=== PATIENT | male | born 1965 | race Caucasian/White ===

== ENCOUNTER 2017-06-27 09:49 | Inpatient (IN) | payer OTHER, SELFPAY ==
[2017-06-27] MEDS ORDERED: Nitroglycerin 2% Ointment 1 INCH/1 GM Packet ONE (10:23)
[2017-06-27] MEDS ORDERED: Azithromycin 500 MG, Admixture Fee 1 EACH in Sodium Chloride 0.9% 250 ML 250 ML IVPB SCH (10:30)
--- NOTE | 2017-06-27 10:33 | RAD ---
CHEST ONE VIEW: History: Dyspnea. Comparison: 11-09-16 FINDINGS: Portable chest demonstrates an enlarged cardiac silhouette. Sternotomy wires are present. Pulmonary v essels and hilum are normal. Costophrenic angles are clear. No masses or consolidation. No pneumothor ax or osseous abnormalities. IMPRESSION: Cardiomegaly. No acute cardiopulmonary process. POS: [facility]
[2017-06-27 10:35] LABS: #Eosinphils 0.2 thou/uL (0.0-0.7); #Lymphocytes 1.5 thou/uL (1.20-3.40); #Monocytes 0.5 thou/uL (0.11-0.59); #Neutrophils 4.7 thou/uL (1.40-6.50); %Basophils 0.6 % (0.0-1.0); %Eosinophils 2.9 % (0.0-10.0); %Lymphocytes 21.2 % (21.0-51.0); %Monocytes 7.2 % (0.0-10.0); %Neutrophils 68.1 % (42.0-75.0); Hemoglobin 13.3 g/dL (14.0-18.0); Mean Corpuscular HGB CONC 32.2 g/dL (32.0-36.0); Mean Corpuscular Hemoglobin 28.6 pg (27.0-31.0); Mean Corpuscular Volume 88.8 fl (80.0-94.0); Mean Platelet Volume 9.5 fL (7.4-10.4); Platelet Count 179 thou/uL (130-400); Red Blood Cell (RBC) Count 4.64 mill/uL (4.70-6.10)
[2017-06-27 10:53] LABS: ALT (SGPT) 20 U/L (8-55); AST (SGOT) 20 U/L (5-34); Albumin 4.2 g/dL (3.5-5.0); Alkaline Phosphatase 110 U/L (40-150); Anion Gap 10 mmol/L (10-20); BUN (Urea Nitrogen) 25 mg/dL (8.4-25.7); Bilirubin, Total 0.9 mg/dL (0.2-1.2); CK (CPK) 90 U/L (30-200); Calc. Creatinine Clearance 0 mL/min (70-130); Calcium 9.6 mg/dL (7.8-10.44); Carbon Dioxide 29 mmol/L (22-29); Chloride 103 mmol/L (98-107); Estimated GFR-MDRD 47; Globulin 3.4 g/dL (2.4-3.5); Glucose 119 mg/dL (70-105); Potassium 4.1 mmol/L (3.5-5.1); Protein, Total 7.6 g/dL (6.0-8.3); Sodium 138 mmol/L (136-145)
[2017-06-27 10:57] LABS: CKMB 3.9 ng/mL (0-6.6); Troponin I 0.287 ng/mL (< 0.028)
[2017-06-27] MEDS ORDERED: Enoxaparin Sodium 100 MG/ML SYRINGE ONE (12:05)
[2017-06-27] MEDS ORDERED: hydrALAZINE 20 MG/ML VIAL SLOW IVP PRN (13:21)
[2017-06-27] MEDS ORDERED: Benzonatate 100 MG CAP PO PRN (13:21)
[2017-06-27] MEDS ORDERED: Senokot 8.6 MG TAB PO PRN (13:21)
[2017-06-27] MEDS ORDERED: Lorazepam 1 MG TAB PO PRN (13:21)
[2017-06-27] MEDS ORDERED: Acetaminophen 325 MG TAB PO PRN (13:21)
[2017-06-27] MEDS ORDERED: Ondansetron HCl/PF 4 MG/2 ML Vial IVP PRN (13:21)
[2017-06-27] MEDS ORDERED: Loratadine 10 MG TAB PO PRN (13:21)
[2017-06-27] MEDS ORDERED: traMADol HCl 50 MG TAB PO PRN (13:21)
[2017-06-27] MEDS ORDERED: Milk Of Magnesia 30 ML UDCUP PO PRN (13:21)
[2017-06-27] MEDS ORDERED: Calcium Carbonate 500 MG ChewTAB PO PRN (13:21)
[2017-06-27] MEDS ORDERED: Bisacodyl 5 MG TAB PO PRN (13:21)
[2017-06-27] MEDS ORDERED: Mag-Al 1200 mg/1200 mg/30 ML UDCUP PO PRN (13:21)
[2017-06-27] MEDS ORDERED: cloNIDine 0.1 MG TAB PO PRN (13:21)
[2017-06-27] MEDS ORDERED: Diabetic Tussin 200 MG/10 ML UDCUP PO PRN (13:21)
[2017-06-27] MEDS ORDERED: predniSONE 20 MG TAB PO SCH (13:21)
[2017-06-27 13:53] LABS: Troponin I 0.266 ng/mL (< 0.028)
[2017-06-27] MEDS ORDERED: Furosemide 40 MG/4 ML VIAL SLOW IVP SCH (14:00)
--- NOTE | 2017-06-27 15:11 | HP ---
DATE OF ADMISSION: 06/27/2017 PRIMARY CARE PHYSICIAN: None. The patient has not been able to follow up with any physician. CHIEF COMPLAINT: Worsening shortness of breath and increased swelling in legs and arms. HISTORY OF PRESENT ILLNESS: Mr. Garcia is a very pleasant 51-year-old male with past medic al history of some chronic systolic congestive heart failure as well as ischemic cardiomyopathy with EF last estimated at 20%, coronary artery disease, and dyslipidemia, who presented to the emergency r oom with the above-mentioned complaints. History is mainly obtained by the patient himself and [facility] medical records have been reviewed. He was last admitted to our facility in 10/2016 and was di agnosed with new onset congestive heart failure due to ischemic cardiomyopathy. At that time, his ec ho showed suppressed EF of 15-20%, but unfortunately due to unfunded status, they were not able to af mishra the LifeVest. He also has known history of coronary artery disease with history of CABG in the past. Mr. Garcia presented today for complaints of worsening shortness of breath and he has noticed increas ed swelling in his arms and legs. He reports that he has known history of kidney stones and recently he had renal colic and has possibly passed a renal stone. Because of the pain, he was drinking more and more fluids in order for easy passage of the urine. He did pass the stone, but started to notic e that his legs and arms are getting more and more swollen and he has progressive worsening of shortn ess of breath. He also noticed greenish phlegm and discharge from his nose with symptoms consistent with some allergies. He has no fever, no cough otherwise. He denies any sick contacts. He reported that he is now on disability and had an outpatient echo done late last year with still showed EF heather und 20%. This was done at [facility]. He reports compliance to his medications, but reports that he is taking very low dose of Lasix and he might have been taken off rest of his bl ood pressure medications because his blood pressure had been running low. Currently, he does not rem ember what he takes. Upon presentation to the emergency room, his blood pressure was 120/94 with a pulse of 101, saturatin g 98% on room air. His workup was consistent with acute fluid overload with chest x-ray consistent w ith same. He had borderline elevated cardiac enzymes with troponin at 0.287. His BNP is elevated to 754. He received Lasix for diuresis in the Emergency Room along with IV antibiotics namely Rocephin and azithromycin as well as one dose of therapeutic Lovenox at 1 mg/kg dosing for non-ST elevation M I. He is now being admitted to floor for acute respiratory distress secondary to acute on chronic sy stolic congestive heart failure and possible COPD exacerbation as evidenced by his physical examinati on to the emergency room physician. The patient has known history of tobacco abuse. PAST MEDICAL HISTORY: 1. Coronary artery disease, status post CABG x2 on 09/21/2016. 2. Chronic systolic congestive heart failure. 3. Chronic kidney disease stage 2. 4. Obesity. 5. Hypertension. 6. History of former tobacco abuse. 7. Dyslipidemia. 8. Ischemic cardiomyopathy. PAST SURGICAL HISTORY: 1. CABG. 2. Appendectomy. 3. Knee surgery. 4. Cardiac catheterization in July 2016. ALLERGIES: No known medication allergies. SOCIAL HISTORY: He is and lives with his . He has quit smoking a few years ago. No his tory of drug or alcohol abuse. FAMILY HISTORY: Colon cancer in his brother, otherwise no significant premature coronary artery dise ase or stroke. REVIEW OF SYSTEMS: The following complete review of systems was negative, unless otherwise mentioned in the HPI or below: Constitutional: Weight loss or gain, ability to conduct usual activities. Sk in: Rash, itching. Eyes: Double vision, pain. ENT/Mouth: Nose bleeding, neck stiffness, pain, te nderness. Cardiovascular: Palpitations, dyspnea on exertion, orthopnea. Respiratory: Shortness of breath, wheezing, cough, hemoptysis, fever or night sweats. Gastrointestinal: Poor appetite, abdom inal pain, heartburn, nausea, vomiting, constipation, or diarrhea. Genitourinary: Urgency, frequenc y, dysuria, nocturia. Musculoskeletal: Pain, swelling. Neurologic/Psychiatric: Anxiety, depressio n. Allergy/Immunologic: Skin rash, bleeding tendency. HOME MEDICATIONS: Unknown. The patient does take a full dose aspirin and low dose Lasix, but he can not recall the rest of his home medications. LABORATORY DATA: CBC is unremarkable. Serum chemistries show creatinine of 1.57 with estimated GFR of 47. His baseline creatinine is anywhere from 1.2 to 1.5. Initial troponin is 0.287. Repeat trop onin 0.266 with a BNP of 754. Lactic acid is normal. Chest x-ray by my review has no evidence to hale ggest any infiltrate. He does have evidence of pulmonary vascular congestion and cardiomegaly. A 12-lead EKG by my review shows normal sinus rhythm at 99 beats per minute with frequent PVCs and le ft atrial enlargement, otherwise no acute ST or T-wave changes. PHYSICAL EXAMINATION: VITAL SIGNS: Upon presentation; blood pressure 120/94, pulse of 101, respirations 20, saturating 98% on room air, temperature 98.0. GENERAL: No acute distress. Awake, alert, oriented x3. Appears quite comfortable. HEENT: Mucous membrane is moist and pink. No oropharyngeal exudate or erythema. Head is normocepha lic and atraumatic. Pupils are equal and reactive to light and accommodation. Extraocular movements are intact. NECK: Supple without any lymphadenopathy, JVD, or bruit. CHEST: Clear to auscultation without any wheezing, rales, or rhonchi. Rate and rhythm is regular wi thout any murmur, rubs, or gallops. ABDOMEN: Obese, soft, nontender, and nondistended. No hepatosplenomegaly. No guarding, rebound, or rigidity. EXTREMITIES: Show bilateral pitting edema extending from his toes to his upper goldne. He also has bi lateral upper extremity edema on presentation which has since improved with Lasix. NEUROLOGIC: Nonfocal. SKIN: Free of any rashes or bruises. Feels warm and dry to touch. PSYCHIATRIC: Normal affect. IMPRESSION AND PLAN: 1. Acute systolic congestive heart failure exacerbation. It is imperative to know what his cardiac functioning status is. We will go ahead and obtain another echocardiogram and continue him on high d ose diuresis with strict I's and O's and heart failure clinic referral. The patient is currently on disability. I have discussed the possibility of LifeVest again with him in case his EF further suppr essed. At this time, he is more amenable to the discussion. Meanwhile, we will add daily dose of as pirin, continue his statin, and add low dose beta marilynn and CLEMENTE inhibitor if his blood pressure all ows. He will also be a candidate for Aldactone based on his past echocardiogram. However, given his marginal blood pressure, these medications will be restarted slowly. We will consult his cardiologi , Dr. Peñaloza for further recommendations. Monitor blood pressure closely. 2. Acute chronic obstructive pulmonary disease exacerbation. This is based on the clinical examinat ion as per the emergency room physician. His wheezing has improved. At this time, we will put him o n nebulizers and oral steroids and oxygen as needed basis. I do not suspect any pneumonia at this ti me, but he can very well have acute bronchitis or viral upper respiratory infection. His influenza q uick swab is negative, but we will go ahead and perform the PCR for respiratory viruses. At this palalvi e, hold antibiotics until further clinical confirmation of infection is made. 3. History of coronary artery disease. We will restart his home medications of CLEMENTE inhibitor, beta blockers, aspirin, and statin as much as his blood pressure tolerates. 4. Dyslipidemia. Resume his pravastatin. 5. History of nephrolithiasis, currently asymptomatic. 6. Chronic kidney disease stage 2. We will monitor his renal function closely with diuresis and reji id any further nephrotoxic medications. 7. Morbid obesity. 8. Hypertension. Monitor symptoms closely as the blood pressure is on the lower side at this time. 9. Code status: FULL CODE. 10. Deep venous thrombosis and gastrointestinal prophylaxis. DISPOSITION: Mr. Garcia is currently being admitted to telemetry unit for acute CHF exacerbation and also possibly acute COPD exacerbation. Estimated length of stay at this time is at least 2 to 3 midnights. Further management will depend u radu his clinical course, his echocardiogram, and Cardiology recommendations.
[2017-06-27 16:01] VITALS: BMI 35.9
[2017-06-27] MEDS: Heparin 5,000 UNITS/ML VIAL SC SCH ×2 (16:03→21:43)
[2017-06-27] MEDS ORDERED: FLU VACC QS2017-18 36 mo. & older 0.5 ML SYRINGE IM ONE (17:00)
[2017-06-27 17:36] LABS: Troponin I 0.253 ng/mL (< 0.028)
[2017-06-27] MEDS ORDERED: Lisinopril 5 MG TAB PO SCH (18:45)
[2017-06-27] MEDS ORDERED: Sodium Chloride 0.9% 10 ML ONE (20:24)
[2017-06-27] MEDS ORDERED: Carvedilol 3.125 MG TAB PO SCH (21:00)
[2017-06-27] MEDS: Famotidine 20 MG TAB PO SCH (21:43)
--- NOTE | 2017-06-27 22:51 | CON ---
DATE OF CONSULTATION: 06/27/2017. REASON FOR ADMISSION: Congestive heart failure. PRIMARY FOREIGN CLERK: Johnnie Peñaloza MD HISTORY OF PRESENT ILLNESS: Mr. Garcia is a pleasant 51-year-old gentleman. The patient has a histo ry of coronary artery bypass grafting, 07/2016. At that time, the patient underwent cardiac catheter ization and was found to have multivessel coronary disease with reduced left ventricular function. T he patient underwent bypass surgery. He had an 80% LAD lesion, 70% first marginal lesion, 90% second marginal lesion in the right coronary, 80% posterior descending artery. He also had depressed left ventricular function. He underwent successful bypass surgery with Dr. Charlie Burden, 09/21/2016, int ernal mammary to the LAD and vein graft to right coronary and ramus. The patient had depressed left ventricular function following that. Discussion was held about LifeVe st, but he could not afford to buy it or use it. He said he was on some medicines for heart failure, but stopped taking these due to the blood pressure being low. He has not been back to see Dr. Igor tomlinson for many months. The patient did not come back in for followup in the last few months. He said he could not afford it, but now he is on disability and he thinks he is able to afford it. He came to the hospital at this time with shortness of breath and increasing edema. He received some diuretics with an excellent response. He feels much better now. ALLERGIES: None known. MEDICATIONS: 1. Aspirin. 2. Pravastatin. 3. Furosemide. ALLERGIES: None. SOCIAL HISTORY: No alcohol or tobacco. FAMILY HISTORY: Negative for heart disease at a young age. PHYSICAL EXAMINATION: GENERAL: This is a pleasant 51-year-old gentleman. He says he is feeling much better. VITAL SIGNS: Blood pressure is high at 140/100, pulse 90. HEENT: Eyes, sclerae are nonicteric. Mouth, mucous membranes are moist. NECK: Supple. No lymphadenopathy. LUNGS: Clear. No wheezing, rales, or rhonchi. CARDIAC: Normal S1, normal S2. There is no murmur, rub, or gallop. ABDOMEN: Soft, nontender. EXTREMITIES: There is no edema. Good peripheral pulses. LABORATORY AND X-RAY FINDINGS: Troponin level peak is 0.266, which is just below the [place] range more a nd still in the indeterminate range. EKG did not show any acute changes, did show a PVC. ASSESSMENT AND PLAN: 1. History of congestive heart failure; acute on chronic systolic heart failure, improved now after diuretic therapy. Plan: Give intravenous Lasix, but we will reduce dose. He does not seem to be se verely volume overloaded. Resume CLEMENTE inhibitors. Resume beta blockers. 2. Coronary artery disease, status post bypass surgery, some distal atherosclerosis. 3. Hypercholesterolemia. Plan: We will also continue statin and aspirin, on low-dose heparin. Rep eat echocardiogram. Needs to be on CLEMENTE inhibitors and beta blockers for 3 months before consideratio n for an implantable defibrillator. Dr. Peñaloza to resume care tomorrow.
[2017-06-28 05:27] LABS: #Basophils 0.1 thou/uL (0.0-0.2); #Lymphocytes 0.7 thou/uL (1.20-3.40); #Monocytes 0.4 thou/uL (0.11-0.59); %Basophils 0.7 % (0.0-1.0); %Eosinophils 0.3 % (0.0-10.0); %Monocytes 5.2 % (0.0-10.0); %Neutrophils 83.8 % (42.0-75.0); Mean Corpuscular HGB CONC 31.5 g/dL (32.0-36.0); Mean Corpuscular Hemoglobin 28.1 pg (27.0-31.0); Mean Corpuscular Volume 89.2 fl (80.0-94.0); Mean Platelet Volume 9.8 fL (7.4-10.4); Platelet Count 173 thou/uL (130-400); RBC Distribution Width 14.2 % (11.5-14.5); Red Blood Cell (RBC) Count 4.63 mill/uL (4.70-6.10); White Blood Cell (WBC) Count 7.1 thou/uL (4.8-10.8)
[2017-06-28 05:41] LABS: Anion Gap 14 mmol/L (10-20); BUN (Urea Nitrogen) 25 mg/dL (8.4-25.7); Calc. Creatinine Clearance 98 mL/min (70-130); Calcium 9.8 mg/dL (7.8-10.44); Carbon Dioxide 25 mmol/L (22-29); Chloride 105 mmol/L (98-107); Estimated GFR-MDRD 48; Glucose 181 mg/dL (70-105); Potassium 4.3 mmol/L (3.5-5.1); Sodium 140 mmol/L (136-145)
[2017-06-28] MEDS ORDERED: Sodium Chloride 0.9% 10 ML ONE (05:45)
[2017-06-28] MEDS: Furosemide 40 MG/4 ML VIAL SLOW IVP SCH ×2 (05:58→14:45)
[2017-06-28] MEDS ORDERED: predniSONE 20 MG TAB PO SCH (08:00)
[2017-06-28] MEDS ORDERED: Carvedilol 3.125 MG TAB PO SCH (08:00)
[2017-06-28] MEDS ORDERED: Azithromycin 250 MG TAB PO SCH (09:00)
[2017-06-28] MEDS ORDERED: Lisinopril 5 MG TAB PO SCH (09:00)
[2017-06-28] MEDS: Famotidine 20 MG TAB PO SCH (09:55)
[2017-06-28] MEDS: Heparin 5,000 UNITS/ML VIAL SC SCH ×2 (09:56→15:38)
--- NOTE | 2017-06-28 12:39 | PDOC.CTH ---
Cardiology Progress Note - Subjective He is dong much better. His breathing is back to normal. He has diuresed about 6 L out. He has been battling with a kidney stone lately and thinks he passe dit a few days ago. - Objective Vital Signs Temp Pulse Resp BP BP Pulse Ox 06/28/17 09:55 97.2 F L 97 16 92 L 06/28/17 09:51 97.2 F L 97 16 134/82 92 L 06/28/17 05:57 99 20 133/94 H 06/28/17 04:00 96.7 F L 107 H 15 134/79 95 Weight 266 lb 12.8 oz 06/27/17 06/28/17 06/29/17 06:59 06:59 06:59 Intake Total 474 Output Total 1825 Balance -1351 - Physical Examination General/Neuro: alert & oriented x3, NAD Neck: no JVD present Lungs: CTA, unlabored respirations Heart: RRR Abdomen: NT/ND Extremities: other: (no edema.) - Telemetry Telemetry Rhythm: NSR - Labs Result Diagrams: 06/28/17 04:55 06/28/17 04:55 Troponin/CKMB CK-MB (CK-2) 3.9 ng/mL (0-6.6) 06/27/17 10:15 Troponin I 0.253 ng/mL (< 0.028) H 06/27/17 16:38 - Assessment/Plan 1. Acute on chronic systolic heart failure. 2. Severe ischemic CM EF at 20-25% 3. S/P CABG PLAN: - Agree with restarting all CHF meds. - Continue current dose of BB and ACEI. - If EF remains reduced in 3 months he will be a candidate for an AICD. - Much more euvolemic today. He may go home today. - Lasix to PO at 40 mg daily and as needed. - Follow up in the office in 3-4 weeks.
[2017-06-28 13:37] VITALS: TEMP 97.9
--- NOTE | 2017-06-28 14:12 | PDOC.PN ---
- Subjective Encounter Start Date: 06/28/17 Encounter Start Time: 14:10 Subjective: feels much better.back to baseline -: no chest pain/SOB/swelling - Objective MAR Reviewed: Yes Vital Signs & Weight: Vital Signs (12 hours) Temp Pulse Resp BP BP BP Pulse Ox 06/28/17 13:35 97.9 F 104 H 18 158/101 H 95 06/28/17 09:55 97.2 F L 97 16 92 L 06/28/17 09:51 97.2 F L 97 16 134/82 92 L 06/28/17 05:57 99 20 133/94 H 06/28/17 04:00 96.7 F L 107 H 15 134/79 95 Weight Weight 266 lb 12.8 oz I&O: 06/27/17 06/28/17 06/29/17 06:59 06:59 06:59 Intake Total 474 Output Total 1825 Balance -1351 Result Diagrams: 06/28/17 04:55 06/28/17 04:55 Additional Labs: Microbiology 06/27/17 17:09 Nasopharyngeal swab Respiratory Panel (PCR) - Final 06/27/17 10:14 Nasopharyngeal swab Influenza Types A,B Direct EIA - Final Laboratory Tests 09/22/16 11/09/16 11/10/16 04:00 16:14 04:00 Creatinine 1.10 1.35 H 1.31 H Troponin I B-Natriuretic Peptide 06/27/17 06/27/17 06/27/17 10:15 10:15 10:15 Creatinine 1.57 H Troponin I 0.287 H B-Natriuretic Peptide 754.0 H 06/27/17 06/27/17 06/28/17 13:14 16:38 04:55 Creatinine 1.53 H Troponin I 0.266 H 0.253 H B-Natriuretic Peptide 06/28/17 04:55 Creatinine Troponin I B-Natriuretic Peptide 739.6 H Radiology Reviewed by me: Yes (ECHO -EF 20-25%,global hypokinesis) Phys Exam - Physical Examination Constitutional: NAD HEENT: PERRLA, moist MMs, sclera anicteric, oral pharynx no lesions Neck: no nodes, no JVD, supple, full ROM Respiratory: no wheezing, no rales, no rhonchi, clear to auscultation bilateral Cardiovascular: RRR, no significant murmur Gastrointestinal: soft, non-tender, no distention, positive bowel sounds Musculoskeletal: no edema, pulses present Neurological: non-focal, normal sensation, moves all 4 limbs Psychiatric: normal affect, A&O x 3 Skin: no rash Dx/Plan (1) Acute on chronic systolic CHF (congestive heart failure) Code(s): I50.23 - ACUTE ON CHRONIC SYSTOLIC (CONGESTIVE) HEART FAILURE Status : Acute (2) CAD (coronary artery disease) Code(s): I25.10 - ATHSCL HEART DISEASE OF [place] CORONARY ARTERY W/O ANG PCTRS Status: Acute (3) CKD (chronic kidney disease), stage II Code(s): N18.2 - CHRONIC KIDNEY DISEASE, STAGE 2 (MILD) Status: Chronic (4) Former smoker Status: Chronic (5) HTN (hypertension) Code(s): I10 - ESSENTIAL (PRIMARY) HYPERTENSION Status: Chronic Qualifiers: (6) Obesity (BMI 30.0-34.9) Code(s): E66.9 - OBESITY, UNSPECIFIED Status: Chronic - Plan DVT proph w/SCDs adequate diuresis. cont ASA,statin.started CLEMENTE-I & BB.tolerated well -: OK to DC from cardiology perspective. -: will discuss life vest.pt candidate for same -: cont lasix .op f/u cardiology.? Aldactone but BP low for now -: AICD near future if EF remains low, * . Review of Systems - Review of Systems Constitutional: negative: fever, chills, sweats, weakness, malaise, other Respiratory: negative: Cough, Dry, Shortness of Breath, Hemoptysis, SOB with Excertion, Pleuritic Pain, Sputum, Wheezing Cardiovascular: negative: chest pain, palpitations, orthopnea, paroxysmal nocturnal dyspnea, edema, light headedness, other Gastrointestinal: negative: Nausea, Vomiting, Abdominal Pain, Diarrhea, Constipation, Melena, Hematochezia, Other Genitourinary: negative: Dysuria, Frequency, Incontinence, Hematuria, Retention , Other Musculoskeletal: negative: Neck Pain, Shoulder Pain, Arm Pain, Back Pain, Hand Pain, Leg Pain, Foot Pain, Other Neurological: negative: Weakness, Numbness, Incoordination, Change in Speech, Confusion, Seizures, Other - Medications/Allergies Allergies/Adverse Reactions: Allergies Allergy/AdvReac Type Severity Reaction Status Date / Time No Known Allergies Allergy Verified 06/27/17 13:33 Medications: Current Medications Acetaminophen (Tylenol) 650 mg PO Q4H PRN PRN Reason: Headache/Fever or Pain Al Hydroxide/Mg Hydroxide (Maalox) 30 ml PO Q6H PRN PRN Reason: Heartburn or Indigestion Albuterol/Ipratropium (Duoneb) 3 ml NEB [id number] [facility] Last Admin: 06/28/17 11:17 Dose: Not Given Azithromycin (Zithromax) 250 mg PO DAILY [facility] Stop: 07/01/17 09:01 Last Admin: 06/28/17 09:56 Dose: 250 mg Benzonatate (Tessalon) 100 mg PO Q4H PRN PRN Reason: Cough Bisacodyl (Dulcolax) 10 mg PO DAILYPRN PRN PRN Reason: Constipation Calcium Carbonate (Tums) 1,000 mg PO Q4H PRN PRN Reason: Heartburn or Indigestion Carvedilol (Coreg) 3.125 mg PO BID-[facility] Last Admin: 06/28/17 09:56 Dose: 3.125 mg Clonidine (Catapres) 0.1 mg PO Q4H PRN PRN Reason: Systolic BP > 160 Famotidine (Pepcid) 20 mg PO BID [facility] Last Admin: 06/28/17 09:55 Dose: 20 mg Furosemide (Lasix) 20 mg SLOW IVP 0600,1400 [facility] Last Admin: 06/28/17 05:58 Dose: 20 mg Guaifenesin (Robitussin Sf) 200 mg PO Q4H PRN PRN Reason: Cough Heparin Sodium (Porcine) (Heparin) 5,000 units SC TID [facility] Last Admin: 06/28/17 09:56 Dose: 5,000 units Hydralazine HCl (Apresoline) 10 mg SLOW IVP Q4H PRN PRN Reason: Systolic BP > 180 Lisinopril (Zestril) 5 mg PO DAILY [facility] Last Admin: 06/28/17 09:55 Dose: 5 mg Loratadine (Claritin) 10 mg PO DAILYPRN PRN PRN Reason: Sinus Symptoms Lorazepam (Ativan) 1 mg PO Q4H PRN PRN Reason: Anxiety/Agitation Magnesium Hydroxide (Milk Of Magnesium) 30 ml PO DAILYPRN PRN PRN Reason: Constipation Ondansetron HCl (Zofran) 4 mg IVP Q6H PRN PRN Reason: Nausea/Vomiting Prednisone (Prednisone) 40 mg PO [facility] Last Admin: 06/28/17 09:54 Dose: 40 mg Senna (Senokot) 2 tab PO HSPRN PRN PRN Reason: Constipation Tramadol HCl (Ultram) 50 mg PO Q4H PRN PRN Reason: Moderate Pain (4-6)
[2017-06-28 14:52] VITALS: BP 132/85
--- NOTE | 2017-06-28 23:14 | DIS ---
DATE OF ADMISSION: DATE OF DISCHARGE: 06/28/2017 CONDITION AT THE TIME OF DISCHARGE: Stable and improved. PRIMARY CARE PHYSICIAN: None. DISCHARGE INSTRUCTIONS: The patient is instructed to follow up and establish care. PRIMARY POWER TONG OPERATOR: Dr. Peñaloza. DISCHARGE DIAGNOSES: 1. Acute on chronic systolic congestive heart failure. 2. Ischemic cardiomyopathy. 3. History of coronary artery disease. 4. Hypertension. 5. Dyslipidemia. 6. History of nephrolithiasis. 7. History of tobacco abuse. 8. Obesity with a BMI of 35. 9. Acute bronchitis with mild chronic obstructive pulmonary disease exacerbation. 10. Suspected chronic obstructive pulmonary disease. DISCHARGE MEDICATIONS: Aspirin 325 mg daily, Medrol Dosepak, azithromycin 250 mg p.o. daily for 4 mo re days, Lasix 40 mg daily, Coreg 3.125 mg p.o. b.i.d., lisinopril 5 mg daily, and pravastatin 40 mg daily. CONSULTATIONS IN-HOUSE: Cardiology, Dr. Zaidi and Dr. Peñaloza. PROCEDURES DONE IN THE HOSPITAL: Include transthoracic echocardiogram, which shows the same ejection fraction low at 20%-25% with severe global hypokinesis and severely dilated left atrium. HISTORY OF PRESENT ILLNESS: Mr. Garcia is a very pleasant 51-year-old male with known history of isc hemic cardiomyopathy, unable to afford a LifeVest as well as history of coronary artery disease who p resented to the emergency room with complaints of worsening shortness of breath and swelling. He gav e history of recent increase fluid intake due to kidney stone. He was trying to pass. He was hemody namically stable upon presentation, but was found to be somewhat wheezy and was given steroids. He a lso gave history of some greenish discharge from the nose, and for this reason, he also received IV a ntibiotics in the emergency room. He was admitted with a presumptive diagnosis of acute on chronic s ystolic congestive heart failure. Please see admission history and physical dictated by myself for f urther details. HOSPITAL COURSE: Mr. Garcia was diuresed and Cardiology saw the patient. He had excellent results f rom the diuresis. He lost about 6 pounds overnight. He was started on beta marilynn and CLEMENTE inhibito r, which he has not been able to afford prior to this. The patient reported that he has security dis ability for now and will be able to afford these medications. He was continued on aspirin and statin . He was also treated with oral azithromycin as well as tapering dose of prednisone for possible acu te COPD exacerbation. On the day of discharge, he was seen and examined and is hemodynamically stable and cleared by Cardio logy for discharge. Please see hospitalist progress note from today's date for further detail. Once again, I emphasized the importance of a LifeVest for him as his EF persists to be low. Once aga in, he declined it and says he cannot afford it. He, however, is very open to the idea of following up with Cardiology and possibly getting an AICD in 3 months from now if his EF remains low. Discharge plan was discussed with the patient and he verbalizes understanding. Medication prescripti ons were provided.
== END 2017-06-28 16:10 | disposition home or self-care (01) | DRG 291 ==
LOC: ERS 09:49 → ERHOLD 11:36 → 2NO 15:37
PROVIDERS: ADMIT Internal Medicine; ATTEND Internal Medicine
DX: I13.0 Hypertensive heart and chronic kidney disease with heart failure and stage 1 through stage 4 chronic kidney disease, or unspecified chronic kidney disease (principal); I50.23 Acute on chronic systolic (congestive) heart failure; Z95.1 Presence of aortocoronary bypass graft; E66.01 Morbid (severe) obesity due to excess calories; J44.0 Chronic obstructive pulmonary disease with (acute) lower respiratory infection; J44.1 Chronic obstructive pulmonary disease with (acute) exacerbation; I25.5 Ischemic cardiomyopathy; I25.10 Atherosclerotic heart disease of native coronary artery without angina pectoris; E78.5 Hyperlipidemia, unspecified; Z68.35 Body mass index [BMI] 35.0-35.9, adult; J20.9 Acute bronchitis, unspecified; N18.2 Chronic kidney disease, stage 2 (mild); Z87.891 Personal history of nicotine dependence; Z79.82 Long term (current) use of aspirin; Z79.899 Other long term (current) drug therapy
CPT/HCPCS: 36415; 71045; 80048; 80053; 82550; 82553; 83605; 83880; 84443; 84484; 85025; 87633; 87798; 90471; 90682; 90732; 93005; 93306; 94640; 96365; 96366; 96372; 96375; A4216; G0008; G0009; J0456; J0696; J1644; J1650; J1940; J7050; J7506; J7620; Q2036

== ENCOUNTER 2020-03-27 22:17 | Inpatient (IN) | payer MEDICARE ==
[2020-03-27 23:53] LABS: Troponin I 0.086 ng/mL (< 0.028)
--- NOTE | 2020-03-28 00:05 | PDOC.FPRHP ---
- History of Present Illness Chief Complaint: dyspnea History of Present Illness: 54-year-old male PMH of CHF and CABG 5 years ago, who was transferred from an outside ED due to shortness of breath x 4 days with increased LE swelling. He notes that he traveled to [place] and did not bring his medications so he missed 2.5 days. He notes that he could feel the congestion mostly in his chest. He endorses a mild cough due to postnasal drip, denies fever/chills, ill contact, denies chest pain. At the outside ER he was found to have CHF exacerbation with a CXR showing pulmonary vascular congestion, with an elevated BNP and indeterminant troponin. Patient states he was supposed to see Anabela in July for a stress test, and also states there was talks of him getting an AICD. ED Course: outside ER, he received 1 inch of nitro paste, Aspirin 324mg, and Lasix IV 40mg - Allergies/Adverse Reactions Allergies Allergy/AdvReac Type Severity Reaction Status Date / Time No Known Allergies Allergy Verified 03/28/20 00:47 - Home Medications Medication Instructions Recorded Confirmed Type Carvedilol [Coreg] 3.125 mg PO BID-WM #180 tab 06/28/17 03/28/20 Rx Lisinopril [Zestril] 5 mg PO DAILY #90 tab 06/28/17 03/28/20 Rx Pravastatin Sodium [Pravachol] 40 mg PO QPM #30 tab 06/28/17 03/28/20 Rx Aspirin 81 mg PO DAILY 03/28/20 03/28/20 History Furosemide [Lasix] 20 mg PO DAILY 03/28/20 03/28/20 History - History PMHx: HFrEF, HTN, CAD, CABG 2016 PSHx: Right knee surgery x2, CABG FHx: HTN Social: daily smoker, social drinker, no drugs - Review of Systems General: denies: fever/chills, weight/appetite/sleep changes Eyes: denies: eye pain, vision changes ENT: denies: nasal congestion, rhinorrhea Respiratory: reports: cough, congestion, shortness of breath Cardiovascular: reports: edema. denies: chest pain, palpitation Gastrointestinal: denies: nausea, vomiting, diarrhea, constipation, abdominal pain Genitourinary: denies: incontinence, dysuria Skin: denies: rashes, lesions Musculoskeletal: denies: pain, tenderness Neurological: denies: numbness, syncope Psychological: denies: anxiety, depression - Vital signs BP: 99/61 (Left Arm), MAP: 73, Pulse: 99, Resp: 16, Pain: 0, O2 sat: 95 on (Room Air), Wt 127kg - Physical Exam Constitutional: NAD, awake, alert and oriented, well developed HEENT: normocephalic and atraumatic, PERRLA, EOMI, MMM Neck: supple, FROM, trachea midline Heart: RRR, no murmurs/rubs/gallops, pulses present Lungs: no respiratory distress, other (expiratory wheeze heard at posterior bases) Abdomen: soft, non-tender, bowel sounds present Musculoskeletal: normal structure, normal tone, ROM grossly normal Neurological: no focal deficit, CN II-XII intact, normal sensation Skin: no rash/lesions, good turgor Heme/Lymphatic: no unusual bruising or bleeding, no purpura Psychiatric: normal mood and affect, good judgment and insight, intact recent and remote memory FMR H&P: A/P - Plan Disposition/LOS: Acute HFrEF Exacerbation 2/2 medication noncompliance Elevated BNP Improvement of symptoms with diuresis Last echo 2018: EF 20-25%, severe global hypokinesis - continue to diurese - am Echo - strict I/Os - monitor O2 status, currently stable on RA - walking program ordered - admit tele CAD Trop at outside ED .[id number] Patient reportedly scheduled for stress test in july, but missed d/t sick family member - trend troponins - will get am stress pending fluid status - consider cards consult to discuss echo and stress HTN - continue home meds HLD - continue home meds Code: DNR Prophylaxis: SCDs Fluids: SL Diet: HH Disposition: DC in 1-2 days PCP: None, CC FMR H&P: Upper Level - Plan Date/Time: 03/28/20 0004 IDao DO, have evaluated this patient and agree with findings/plan as outlined by social media intern resident. Pertinent changes/additions are listed here. This is a 54 yo male with a pmh HTN, CAD with previous CABG, and HFrEF who presents to an outside ER with a cc of SOB. He states this past week he went to [place] to collect some things. He states he forgot his lasix and did not take them for about 3-4 days and progressively started feeling SOB. He states this has happened before when he did not take his medications. He reports a fullness around his heart but denies severe leg swelling. He state he has been unable to lay flat. He denies chest pain, nausea, vomiting, abdominal pain, difficulty urinating, or trouble walking. In the outside ER, he received 1 inch of nitro paste, Aspirin 324mg, and Lasix IV 40mg. He reports following the lasix, his breathing is much improved. He also reports that he was suppose to have a stress test done with Dr. Peñaloza at the beginning of the year but was unable to due to his grandmother's condition. Currently, his vital signs are stable, he was seen eating a meal and talking in complete sentences. He does not have significant pitting edema in his legs, but does have bilateral basilar crackles on lung exam. Heart is RRR, abdomen is soft with bowel sounds present. A/P Acute HFrEF exacerbation: monitor on tele, diurese, and obtain Echo in the morning as we do not have a current echo. In addition, given his CAD and need for a stress, we will obtain that in the morning if he is improved from a cardiovascular standpoint. CAD: consider consulting cardiology in the AM to discuss stress test and echo. Please see social media intern not for further information and chronic condition management. Code: DNR Prophylaxis: SCDs Family: None at bedside Fluids: SL Diet: HH Disposition: DC in 1-2 days PCP: None, CC
[2020-03-28] MEDS ORDERED: Acetaminophen 325 MG TAB PO PRN (00:30)
[2020-03-28] MEDS ORDERED: Ondansetron ODT 4 MG TAB SL PRN (00:30)
[2020-03-28] MEDS ORDERED: Ondansetron PF 4 MG/2 ML Vial IVP PRN (00:30)
[2020-03-28 00:52] VITALS: BMI 36.1
[2020-03-28 04:28] LABS: #Basophils 0.1 thou/uL (0.0-0.2); #Eosinphils 0.1 thou/uL (0.0-0.7); #Lymphocytes 1.4 thou/uL (1.20-3.40); #Monocytes 0.9 thou/uL (0.11-0.59); #Neutrophils 7.9 thou/uL (1.40-6.50); %Basophils 0.7 % (0.0-1.0); %Eosinophils 1.3 % (0.0-10.0); %Lymphocytes 13.5 % (21.0-51.0); %Monocytes 8.5 % (0.0-10.0); Mean Corpuscular HGB CONC 32.3 g/dL (32.0-36.0); Mean Corpuscular Hemoglobin 28.3 pg (27.0-31.0); Mean Corpuscular Volume 87.8 fL (78.0-98.0); Mean Platelet Volume 10.4 fL (7.4-10.4); Platelet Count 141 thou/uL (130-400); Red Blood Cell (RBC) Count 4.93 mill/uL (4.70-6.10); White Blood Cell (WBC) Count 10.4 thou/uL (4.8-10.8)
[2020-03-28 04:47] LABS: Anion Gap 13 mmol/L (10-20); BUN (Urea Nitrogen) 20 mg/dL (8.4-25.7); Calc. Creatinine Clearance 90 mL/min (70-130); Calcium 8.7 mg/dL (7.8-10.44); Carbon Dioxide 26 mmol/L (22-29); Chloride 98 mmol/L (98-107); Estimated GFR-MDRD 44; Glucose 323 mg/dL (70-105); Potassium 3.2 mmol/L (3.5-5.1); Sodium 134 mmol/L (136-145)
[2020-03-28] MEDS ORDERED: Potassium Chloride 20 MEQ TAB PO SCH (06:30)
[2020-03-28] MEDS: Carvedilol 3.125 MG TAB PO SCH ×2 (08:09→15:51)
[2020-03-28] MEDS: Aspirin 81 mg Enteric Coated Tablet PO SCH (08:13)
[2020-03-28] MEDS: Lisinopril 5 MG TAB PO SCH (08:13)
[2020-03-28] MEDS ORDERED: FLU VACC QS2020-21(6MOS UP)/PF 60 MCG/0.5 ML SYRINGE IM ONE (09:00)
[2020-03-28] MEDS ORDERED: Furosemide 40 MG TAB PO SCH (09:00)
[2020-03-28] MEDS ORDERED: Dextrose 50% Abboject 50 ML SYRINGE SLOW IVP PRN (11:27)
[2020-03-28] MEDS ORDERED: Dextrose 5% in Water 1,000 ML IV PRN (11:27)
[2020-03-28] MEDS ORDERED: HumaLOG 300 UNITS/3 ML VIAL SC PRN (11:30)
[2020-03-28] MEDS: Furosemide 40 MG/4 ML VIAL SLOW IVP SCH (11:31)
[2020-03-28] MEDS ORDERED: ADENOSINE 60 MG/20 ML VIAL ONE (13:14)
--- NOTE | 2020-03-28 13:53 | NM ---
NUCLEAR MEDICINE CARDIAC MYOCARDIAL PERFUSION SPECT EJECTION FRACTION STUDY WALL MOTION CINE: DATE: 03/28/2020 HISTORY: 54 year old hypertensive smoker with coronary artery disease and dyslipidemia presents with "indeterm inate troponin" levels. TECHNIQUE: Number of days: 1 Rest study: Technetium 99m-sestamibi (Cardiolite) dose: 10.3 mCi Pharmacologic stress: Adenosine dose: 69.4 mg Stress study: Technetium 99m-sestamibi (Cardiolite) dose: 29.4 mCi FINDINGS: CARDIAC (MYOCARDIAL PERFUSION) SPECT Large contiguous fixed myocardial perfusion defect(s) involving apex, anterior wall, lateral wall, an d inferolateral wall. No reversible myocardial perfusion defect identified. Left ventricular chamber dilation. EJECTION FRACTION STUDY Left ventricular EF = 12 % WALL MOTION CINE Global hypokinesis. IMPRESSION: 1) extensive, large areas of myocardial infarction/scar(s). 2) very low left ventricular ejection fraction of 12% 3) cardiomegaly: left ventricular chamber dilation 4) no definite reversible ischemia identified.
[2020-03-28 16:13] LABS: Troponin I 0.089 ng/mL (< 0.028)
[2020-03-28] MEDS: HumaLOG 300 UNITS/3 ML VIAL SC PRN (17:35)
[2020-03-28 18:29] LABS: SARS-CoV-2 MS2 Positive; SARS-CoV-2 N Gene Negative; SARS-CoV-2 S Gene Negative; SARS-CoV-2 by NAA Not Detected (NotDetected); SARS-CoV-2 orf1ab Negative
[2020-03-28] MEDS: Atorvastatin Calcium 10 MG TAB PO SCH (20:32)
[2020-03-29] MEDS: Lisinopril 5 MG TAB PO SCH (07:52)
[2020-03-29] MEDS: Carvedilol 3.125 MG TAB PO SCH ×2 (07:52→16:51)
[2020-03-29] MEDS: HumaLOG 300 UNITS/3 ML VIAL SC PRN ×3 (07:52→16:51)
[2020-03-29] MEDS: Aspirin 81 mg Enteric Coated Tablet PO SCH (07:52)
[2020-03-29] MEDS: Furosemide 40 MG/4 ML VIAL SLOW IVP SCH (07:53)
[2020-03-29 07:56] LABS: #Eosinphils 0.2 thou/uL (0.0-0.7); #Lymphocytes 1.1 thou/uL (1.20-3.40); #Monocytes 1.1 thou/uL (0.11-0.59); #Neutrophils 10.1 thou/uL (1.40-6.50); %Basophils 0.4 % (0.0-1.0); %Eosinophils 1.5 % (0.0-10.0); %Monocytes 8.5 % (0.0-10.0); %Neutrophils 80.6 % (42.0-75.0); Hemoglobin 14.7 g/dL (14.0-18.0); Mean Corpuscular HGB CONC 31.4 g/dL (32.0-36.0); Mean Corpuscular Hemoglobin 27.9 pg (27.0-31.0); Mean Corpuscular Volume 88.6 fL (78.0-98.0); Mean Platelet Volume 10.3 fL (7.4-10.4); Platelet Count 137 thou/uL (130-400); Red Blood Cell (RBC) Count 5.27 mill/uL (4.70-6.10); White Blood Cell (WBC) Count 12.6 thou/uL (4.8-10.8)
[2020-03-29 08:15] LABS: Anion Gap 14 mmol/L (10-20); BUN (Urea Nitrogen) 16 mg/dL (8.4-25.7); Calc. Creatinine Clearance 111 mL/min (70-130); Calcium 9.1 mg/dL (7.8-10.44); Carbon Dioxide 27 mmol/L (22-29); Chloride 101 mmol/L (98-107); Estimated GFR-MDRD 57; Glucose 186 mg/dL (70-105); Potassium 4.1 mmol/L (3.5-5.1); Sodium 138 mmol/L (136-145)
[2020-03-29] MEDS: Furosemide 40 MG TAB PO SCH (08:51)
--- NOTE | 2020-03-29 09:03 | PDOC.FM ---
- Subjective Subjective: Patient doing well this AM, he is stressed with findings of worsening HF and new diabetes. - Objective Vital Signs & Weight: Vital Signs (12 hours) Temp Pulse Resp BP Pulse Ox 03/29/20 07:11 98.3 F 89 20 127/73 94 L 03/29/20 04:00 97.8 F 92 16 117/80 92 L 03/28/20 23:55 92 Weight Weight 122.243 kg I&O: 03/28/20 03/29/20 03/30/20 06:59 06:59 06:59 Intake Total 320 1440 Balance 320 1440 Result Diagrams: 03/29/20 07:36 03/29/20 07:35 Phys Exam - Physical Examination Constitutional: NAD Respiratory: no wheezing, no rales, no rhonchi, clear to auscultation bilateral Cardiovascular: RRR, no significant murmur, no rub Gastrointestinal: soft, non-tender, no distention, positive bowel sounds Musculoskeletal: no edema, pulses present Dx/Plan - Plan Plan: Acute HFrEF Exacerbation 2/2 medication noncompliance - Last echo 2018: EF 20-25%, severe global hypokinesis, ECHO 03/28 shows EF 10- 15% - continue to diurese, switch to PO - strict I/Os - monitor O2 status, currently stable on RA - walking program - Consult Cards given worsening EF Type 2 DM - A1c 11, random BG >300 on 03/28 - Hypoglycemia protocol, SSI - Will start long acting insulin and metformin - Consult Case Management for medication assistance CAD - Stress test 03/28 showing significant scarring, EF estimated at 12% - troponins stable, indeterminate HTN - continue home meds HLD - continue home meds Code: DNR Prophylaxis: SCDs Fluids: SL Diet: HH Disposition: DC in 1-2 days PCP: None, CC Addendum - Attending - Attending Attestation Date/Time: 03/29/20 1123 I personally evaluated the patient and discussed the management with Dr. Rich. I agree with the History, Examination, Assessment and Plan documented above with any addition or exceptions noted below.
[2020-03-29] MEDS ORDERED: Furosemide 20 MG TAB PO SCH (09:30)
[2020-03-29] MEDS ORDERED: Furosemide 40 MG TAB PO SCH (09:30)
[2020-03-29] MEDS ORDERED: Diltiazem HCl SR 60 mg Capsule PO ONE (09:37)
[2020-03-29 11:31] LABS: Cardiac Risk 5.3 (Less than 4.5)
--- NOTE | 2020-03-29 15:05 | CON ---
DATE OF CONSULTATION: 03/29/2020 INDICATION FOR CONSULTATION: A 54-year-old gentleman with CHF exacerbation. HISTORY OF PRESENT ILLNESS: This very unfortunate 54-year-old gentleman, who underwent bypass surgery in 2017, at which time, he was found to have multivessel coronary artery disease. He underwent bypass surgery by Dr. Charlie Burden. He had a PICKETT to the left anterior descending artery, saphenous vein graft to the right coronary into the ramus. At the time of the cardiac catheterization, he had an 80% left anterior descending artery stenosis, 70% first obtuse marginal branch stenosis and 90% second obtuse marginal branch. In the right coronary artery, he had an 80% stenosis in the posterior descending artery. At that time, he was also noted to have a decrease in left ventricular systolic function. He was advised to undergo a LifeVest. I believe he did not wear the vest, either he could not afford it otherwise, he did not have that LifeVest. He did not have the insurance apparently at that time. Since that time, he has acquired Medicare and has been doing relatively well. He takes care of a 5-year-old granddaughter. He has been able to walk. He does some minimal stuff around the house and stays relatively active, but cannot do any strenuous activity. Recently, last several days, he had been visiting his sick mother in [place] and he forgot to bring his medications. He was off his diuretics and developed increasing shortness of breath. When he returned, he doubled up on the dose of his Lasix, which was 20 mg twice a day. However, he continued to have significant shortness of breath and presented to the emergency room and had evidence of congestive heart failure. Since being in the hospital, he has undergone echocardiogram, which shows ejection fraction of 10% to 15%. He also had a stress testing, which showed an ejection fraction around 12%. At this time, he is more comfortable. He has had significant diuresis. He has no lower extremity edema. His chest appears clear at this time and he denied any chest pain. He has no evidence of ischemia on the stress test, but did have evidence of large areas of myocardial infarction and ejection fraction of 12%. He did have left ventricular dilatation. His EKG also shows a bundle branch block, most likely has dilatation. His echocardiogram showed moderate increase in left ventricular size. He also had moderate mitral valve regurgitation. PAST MEDICAL HISTORY: Significant for the coronary artery disease, bypass surgery, and ischemic cardiomyopathy, which actually has continued to decline. He had a knee replacement. He has history of nephrolithiasis, he passed his last stone a couple years ago he said. He has hypercholesterolemia. He has a history of tobacco abuse, though he stops smoking since his bypass surgery. He has hypertension. FAMILY HISTORY: Noncontributory. REVIEW OF SYSTEMS: He denied any HEENT complaints. No pulmonary complaints except for shortness of breath, which is now resolved. He had no GI complaints. , he does have some occasional discomfort, he says due to his nephrolithiasis. He has had no significant cardiac problems such as palpitations or chest pain. Extremities, he denied any clubbing, cyanosis, or edema. Neurologically, he has had no seizures or syncope. MEDICATIONS: Please refer to the notes in the chart. I do not have a complete list of his medications at this time, we can look for those and describe the later. Previously, he was taking; 1. Aspirin. 2. Pravastatin. 3. Furosemide. His medications, which include; 1. Aspirin 81 mg a day. 2. Atorvastatin 10 mg a day. 3. Coreg 3.125 mg b.i.d. 4. Lasix 40 mg daily. 5. Lisinopril 5 mg a day. 6. Metformin 500 mg b.i.d. ALLERGIES: NONE. PHYSICAL EXAMINATION: GENERAL: Reveals a well-developed, well-nourished gentleman, who is in no acute distress at this time. VITAL SIGNS: Blood pressure is 115/72, heart rate is 88 and regular, respiratory rate is 20, O2 saturation is 97%, and temperature is 98.5. HEENT: Unremarkable. Carotid pulses are present. There were no bruits. CHEST: Clear to auscultation. I did not hear any rales, rhonchi, or wheezing at this time. CARDIOVASCULAR: Reveals a regular rate and rhythm. He has normal S1 and S2. I do not hear any significant murmurs, heaves, thrills, bruits, or rubs. He has a very soft systolic murmur at the apex. ABDOMEN: Soft and nontender. Positive bowel sounds are present. He does have some obesity. EXTREMITIES: Showed no clubbing, cyanosis, or edema. Pedal pulses are present. NEUROLOGIC: He appears to be fully intact. He has normal strength and normal tone. He is able to ambulate easily. SKIN: Warm and dry. PSYCHIATRIC: Mentation is within normal limits. LABORATORY DATA: Shows a troponin I of 0.089, increased up to 0.1, and back down to 0.089. His potassium was 3.2, sodium was 134, BUN was 22, creatinine was 1.65, and blood sugar was 323. WBC was 12.6, hemoglobin was 14.7, and platelet count was 137,000. IMPRESSION AND PLAN: 1. Congestive heart failure exacerbation due to severe cardiomyopathy, which is worsened since bypass surgery. Ejection fraction is now anywhere between 10% to 15% both by echo and nuclear study without evidence of ischemia on the nuclear study. He will be advised to undergo an electrophysiological evaluation or consultation and most likely will need to have an automatic implantable cardioverter-defibrillator implanted. 2. History of hypertension. He is actually very stable at this time and actually on the low side. There is no indication he has any hypertension problems at this time. 3. Hypercholesterolemia. He has been on statin medication. We will continue these medications for his coronary artery disease. 4. Coronary artery disease. He has undergone bypass surgery in 2017. This apparently has remained stable. There is no indication of ischemia. 5. History of nephrolithiasis. This appears also to be relatively stable at this time. At this time, we will continue to monitor the patient very carefully and will advise an electrophysiological evaluation for probable AICD implant due to his severe decrease in left ventricular systolic function and bundle-branch block. Most likely, he will need a biventricular automatic implantable cardioverter-defibrillator placement for better synchronization. Hopefully, ejection fraction will increase. The patient does appear to be diabetic and did not see these in the previous records, but apparently the patient has developed diabetes. 6. Abnormal cardiac enzymes, most likely, which is due to congestive heart failure exacerbation. We will be more than happy to continue to follow this very pleasant gentleman, but most likely, will need to be evaluated urgently for a biventricular automatic implantable cardioverter-defibrillator. Also, will need to continue to manage his medications. He has been on angiotensin-converting enzyme inhibitors and statins in the past, now that he has Medicare and maybe can afford it. Should probably try to switch over to Entresto to see if we can get some improvement in left ventricular systolic function. Job ID: [id number]
[2020-03-29] MEDS: metFORMIN 500 MG TAB PO SCH (16:51)
--- NOTE | 2020-03-29 20:30 | CON ---
DATE OF CONSULTATION: 03/29/2020 PRIMARY FURNACE MECHANIC: Johnnie Peñaloza MD REASON FOR CONSULTATION: ICD consideration. HISTORY OF PRESENT ILLNESS: Mr. Garcia is a 54-year-old gentleman with a history of cardiomyopathy and coronary artery disease status post bypass in 2017. That was when his left ventricular systolic function was first noted. At that point, he did not have insurance that will cover a LifeVest. He has been medically managed on Coreg and lisinopril. He was recently out of town, forgot his heart failure medications and developed fluid overload with shortness of breath. He was admitted and is being diuresed with good results. He reports poor stamina and progressive congestive heart failure symptoms with dyspnea on exertion. EP consultation has been requested for consideration of ICD given his longstanding cardiomyopathy despite medical therapy and an LVEF of now 10% to 15%. His problem list is as follows; 1. Acute on chronic congestive systolic heart failure. a. LVEF 10% to 15% on 08/12/2016 echocardiogram. b. LVEF 10% to 15% on 03/28/2020 echocardiogram. 2. Ischemic cardiomyopathy. 3. Coronary artery disease, status post bypass grafting in 2017. 4. Left bundle branch block. 5. Hypertension. 6. History of tobacco abuse in the remote past. REVIEW OF SYSTEMS: A 12-point review of systems positive for shortness of breath, dyspnea on exertion, fluid retention, weight gain, otherwise unremarkable and as per HPI. FAMILY HISTORY: Noncontributory. SOCIAL HISTORY: Denies alcohol, tobacco, or illicit drug use. HOME MEDICATIONS: 1. Lasix 20 mg daily. 2. Coreg 3.125 mg b.i.d. 3. Aspirin 81 mg daily. 4. Pravachol 40 mg q.p.m. 5. Zestril 5 mg daily. OBJECTIVE: VITAL SIGNS: Temperature 98.9, pulse 86, blood pressure 103/66, respirations 20, and oxygen 95% on room air. GENERAL: The patient is alert and oriented. Speech is clear. Affect is appropriate. He is slightly short of breath, resting comfortably in bed at the time of the exam. HEENT: He is normocephalic and atraumatic. Sclerae anicteric. EOMs intact. Oral mucosa is moist and pink with adequate dentition. NECK: Supple without jugular venous distention. No lymphadenopathy. Trachea is midline. HEART: Rate is irregularly irregular with crisp S1 and S2. PMI is slightly displaced laterally. LUNGS: Clear to auscultation. Diminished in the bases with some fine bibasilar crackles. Respirations are even and unlabored. ABDOMEN: Obese, soft, and nontender without palpable masses. Hepatojugular reflux is positive. EXTREMITIES: Warm and dry to touch. Well perfused without clubbing or cyanosis, but bilateral edema is present 1+. NEUROLOGIC: Grossly intact. Gait was not assessed. LABORATORY DATA: WBC 12.6, hemoglobin count 14.7, and platelet count 137. Chemistry; potassium 4.1, creatinine 1.3, and magnesium 1.9. COVID PCR not detected, performed on 03/27/2020. NYHA functional class 3. Telemetry and EKG shows sinus rhythm with a left bundle-branch block, measuring 152 milliseconds. Stress test on 03/28/2020, large fixed defect involving apex anterior wall and lateral wall and inferolateral wall. No reversible myocardial perfusion defect was identified. LVEF 12% with global hypokinesis. IMPRESSION: 1. Acute on chronic congestive systolic heart failure with ischemic cardiomyopathy. 2. History of coronary artery disease with prior bypass, low suspicion for new ischemia based on recent stress test. 3. Left bundle branch block. 4. Declining NYHA functional class status with acute fluid overload. PLAN AND RECOMMENDATIONS: Mr. Garcia has a history of ischemic cardiomyopathy since at least 2017 and his LVEF remains severely depressed at 10% to 15%. We now see a left bundle-branch block and a decline in his functional status. My recommendation would be for biventricular ICD implant to correct his ventricular dyssynchrony in the presence of a left bundle-branch block and also to protect from ventricular arrhythmias and primary prevention in the setting of chronic systolic heart failure with an LVEF less than 35%. The patient is in agreement. We will allow for another day to optimize his fluid status and continue diuresing. At this point, he does appear fairly comfortable. We will continue to check his white blood cell count as it is trending up. Anticipate possible ICD implant on Sunday morning as long as medical status remains stable. We discussed the risks, benefits, and alternatives to ICD implant. The patient voices understanding and is in agreement with this. Thank you for allowing me to participate in the care of this patient. Job ID: [id number]
[2020-03-29] MEDS ORDERED: Insulin Glargine 25 UNITS in Pre-Filled Syringe SC SCH (21:00)
[2020-03-29] MEDS: Atorvastatin Calcium 10 MG TAB PO SCH (21:24)
[2020-03-30] MEDS: HumaLOG 300 UNITS/3 ML VIAL SC PRN ×3 (06:40→17:13)
[2020-03-30 06:47] LABS: #Eosinphils 0.3 thou/uL (0.0-0.7); #Lymphocytes 1.6 thou/uL (1.20-3.40); #Monocytes 1.3 thou/uL (0.11-0.59); #Neutrophils 8.6 thou/uL (1.40-6.50); %Basophils 0.3 % (0.0-1.0); %Eosinophils 2.2 % (0.0-10.0); %Lymphocytes 13.3 % (21.0-51.0); %Monocytes 10.7 % (0.0-10.0); %Neutrophils 73.4 % (42.0-75.0); Hemoglobin 14.4 g/dL (14.0-18.0); Mean Corpuscular HGB CONC 31.7 g/dL (32.0-36.0); Mean Corpuscular Hemoglobin 28.4 pg (27.0-31.0); Mean Corpuscular Volume 89.4 fL (78.0-98.0); Mean Platelet Volume 9.8 fL (7.4-10.4); Platelet Count 146 thou/uL (130-400); RBC Distribution Width 14.8 % (11.5-14.5); Red Blood Cell (RBC) Count 5.09 mill/uL (4.70-6.10); White Blood Cell (WBC) Count 11.7 thou/uL (4.8-10.8)
[2020-03-30 07:08] LABS: Anion Gap 12 mmol/L (10-20); BUN (Urea Nitrogen) 20 mg/dL (8.4-25.7); Calc. Creatinine Clearance 97 mL/min (70-130); Carbon Dioxide 31 mmol/L (22-29); Chloride 97 mmol/L (98-107); Estimated GFR-MDRD 50; Glucose 234 mg/dL (70-105); Potassium 4.2 mmol/L (3.5-5.1); Sodium 136 mmol/L (136-145)
--- NOTE | 2020-03-30 08:10 | PDOC.FM ---
- Subjective Subjective: Patient is up, walking around, feels great. Denies CP/SOB/edema. Patient requests more info about diabetes. - Objective Vital Signs & Weight: Vital Signs (12 hours) Temp Pulse Resp BP Pulse Ox 03/30/20 07:35 98.2 F 89 18 111/67 97 03/30/20 04:22 97.6 F 90 18 123/76 97 Weight Weight 120.656 kg I&O: 03/29/20 03/30/20 03/31/20 06:59 06:59 06:59 Intake Total 1440 1275 Balance 1440 1275 Result Diagrams: 03/30/20 06:33 03/30/20 06:33 Phys Exam - Physical Examination Constitutional: NAD Respiratory: no wheezing, clear to auscultation bilateral Cardiovascular: RRR, no significant murmur, no rub Gastrointestinal: soft, non-tender, no distention Dx/Plan - Plan Plan: Acute HFrEF Exacerbation 2/2 medication noncompliance - Last echo 2018: EF 20-25%, severe global hypokinesis, ECHO 03/28 shows EF 10- 15% - continue to diurese, switch to PO - strict I/Os - monitor O2 status, currently stable on RA - walking program - Cardiology/EP plan to place AICD, patient agreeable to procedure Type 2 DM - A1c 11, random BG >300 on 03/28 - Hypoglycemia protocol, SSI - Will increase long acting insulin - continue metformin - Consult Case Management for medication assistance CAD - History of CABG 2016 - Stress test 03/28 showing significant scarring, EF estimated at 12% - troponins stable, indeterminate HTN - continue home meds HLD - continue home meds Code: DNR Prophylaxis: SCDs Fluids: SL Diet: HH Disposition: DC in 1-2 days PCP: None, CC Addendum - Attending - Attending Attestation Date/Time: 03/30/20 1123 I personally evaluated the patient and discussed the management with Dr. Rich. I agree with the History, Examination, Assessment and Plan documented above with any addition or exceptions noted below. Patient feeling well. Headed for AICD tomorrow for worsening HFrEF.
[2020-03-30] MEDS: metFORMIN 500 MG TAB PO SCH ×2 (08:48→17:12)
[2020-03-30] MEDS: Aspirin 81 mg Enteric Coated Tablet PO SCH (08:48)
[2020-03-30] MEDS: Furosemide 40 MG TAB PO SCH (08:48)
[2020-03-30] MEDS: Carvedilol 3.125 MG TAB PO SCH (08:49)
[2020-03-30] MEDS: Lisinopril 5 MG TAB PO SCH (08:49)
[2020-03-30] MEDS ORDERED: Diltiazem HCl SR 60 mg Capsule PO SCH (09:00)
--- NOTE | 2020-03-30 17:06 | PDOC.EP ---
- Subjective Date: 03/30/20 Time: 08:00 Interval History: No new events overnight. Patient feels well and is eager for procedure tomorrow. He denies any shortness of breath, orthopnea, dizziness or palpitations. He wishes to rescind his DNR status and becoming full code again ROS: 8 point review of systems was conducted and is negative - Objective Allergies/Adverse Reactions: Allergies Allergy/AdvReac Type Severity Reaction Status Date / Time No Known Allergies Allergy Verified 03/28/20 00:47 Current Medications Aspirin (Aspirin 81 Mg Enteric Coated Tablet) 81 mg PO DAILY [facility] Last Admin: 03/30/20 08:48 Dose: 81 mg Documented by: Atorvastatin Calcium (Atorvastatin Calcium 10 Mg Tab) 10 mg PO QPM [facility] Last Admin: 03/29/20 21:24 Dose: 10 mg Documented by: Carvedilol (Carvedilol 6.25 Mg Tab) 6.25 mg PO BID-[facility] Dextrose/Water (Dextrose 50% Abboject 50 Ml Syringe) 25 gm SLOW IVP PRN PRN PRN Reason: Hypoglycemia Furosemide (Furosemide 40 Mg Tab) 40 mg PO DAILY [facility] Last Admin: 03/30/20 08:48 Dose: 40 mg Documented by: Glucagon (Glucagon 1 Mg/Ml Vial) 1 mg IM PRN PRN PRN Reason: Hypoglycemia Dextrose/Water (D5w) 1,000 mls @ 0 mls/hr IV .Q0M PRN PRN Reason: Hypoglycemia Insulin Glargine 30 units/ (Miscellaneous Medication) 0.3 mls @ 0 mls/hr SC [facility] Insulin Human Lispro (Humalog 300 Units/3 Ml Vial) 0 units SC .MILD SLIDING SCALE PRN PRN Reason: Mild Correctional Scale Last Admin: 03/30/20 12:57 Dose: 3 unit Documented by: Insulin Human Lispro (Humalog 300 Units/3 Ml Vial) 0 units SC .BEDTIME SLIDING SC PRN PRN Reason: Bedtime Correctional Scale Lisinopril (Lisinopril 5 Mg Tab) 5 mg PO DAILY [facility] Last Admin: 03/30/20 08:49 Dose: 5 mg Documented by: Metformin HCl (Metformin 500 Mg Tab) 500 mg PO BID-[facility] Last Admin: 03/30/20 08:48 Dose: 500 mg Documented by: Vital Signs & Weight: Vital Signs Temp Pulse Resp BP Pulse Ox 03/30/20 15:06 98.4 F 84 18 114/62 96 03/30/20 12:09 97.8 F 87 16 111/70 94 L 03/30/20 07:35 98.2 F 89 18 111/67 97 Weight 266 lb I/O: I/O 03/29/20 03/30/20 03/31/20 06:59 06:59 06:59 Intake Total 1440 1275 Balance 1440 1275 - Physical Exam General: alert & oriented x3, appears well, no apparent distress, speech clear, affect appropriate HEENT: mucus membranes moist, normocephaly Neck: supple neck, midline trachea, no JVD/HJR, no masses, no bruit, no lymphadenopathy, no thromegaly Cardiology: regular rate and rhythm, no murmur, regular rate, regular rhythm, PMI nondisplaced Lungs: clear to auscultation, normal breath sounds, normal exam, no wheeze, rales, rhonchi, no wheezes, no rales, no rhonchi Neurology: cranial nerve 2-12 intact, grossly intact, motor function intact, sensory function intact, negative rhomberg, coordination normal, no lateralizing findings Abdomen: unremarkable, active bowel sounds, soft, non-tender, no masses, no pulsations/bruits, no hepatosplenomegaly, HJR negative - Labs Result Diagrams: 03/30/20 06:33 03/30/20 06:33 - EKG Interpretation EKG Method: Telemetry EKG shows: Sinus rhythm - Assessment/Plan Assessment/Plan: 1. Acute on chronic congestive systolic heart failure. a. LVEF 10% to 15% on 08/12/2016 echocardiogram. b. LVEF 10% to 15% on 03/28/2020 echocardiogram. 2. Ischemic cardiomyopathy. 3. Coronary artery disease, status post bypass grafting in 2017. 4. Left bundle branch block. 5. Hypertension. 6. History of tobacco abuse in the remote past. proceed with biventricular ICD implant tomorrow morning given his chronic systolic congestive heart failure with recent fluid overload and left bundle- branch block. NPO after midnight. Shared decision making tool was used to a discussion and he is in agreement to move forward with [employer] ICD implant. He is currently NYHA functional class 2.
[2020-03-30] MEDS: Carvedilol 6.25 MG TAB PO SCH (17:12)
[2020-03-30] MEDS: Atorvastatin Calcium 10 MG TAB PO SCH (20:37)
[2020-03-30] MEDS ORDERED: Insulin Glargine 30 UNITS in Pre-Filled Syringe SC SCH (21:00)
[2020-03-31 04:58] LABS: #Basophils 0.1 thou/uL (0.0-0.2); #Eosinphils 0.3 thou/uL (0.0-0.7); #Lymphocytes 1.6 thou/uL (1.20-3.40); #Monocytes 1.1 thou/uL (0.11-0.59); #Neutrophils 7.1 thou/uL (1.40-6.50); %Basophils 0.7 % (0.0-1.0); %Eosinophils 2.8 % (0.0-10.0); %Lymphocytes 15.7 % (21.0-51.0); %Monocytes 10.7 % (0.0-10.0); %Neutrophils 70.1 % (42.0-75.0); Hemoglobin 15.1 g/dL (14.0-18.0); Mean Corpuscular HGB CONC 32.1 g/dL (32.0-36.0); Mean Corpuscular Hemoglobin 28.7 pg (27.0-31.0); Mean Corpuscular Volume 89.3 fL (78.0-98.0); Mean Platelet Volume 9.8 fL (7.4-10.4); Platelet Count 160 thou/uL (130-400); RBC Distribution Width 14.8 % (11.5-14.5); Red Blood Cell (RBC) Count 5.27 mill/uL (4.70-6.10); White Blood Cell (WBC) Count 10.1 thou/uL (4.8-10.8)
[2020-03-31 05:25] LABS: Anion Gap 14 mmol/L (10-20); BUN (Urea Nitrogen) 21 mg/dL (8.4-25.7); Calc. Creatinine Clearance 101 mL/min (70-130); Calcium 9.2 mg/dL (7.8-10.44); Carbon Dioxide 29 mmol/L (22-29); Chloride 99 mmol/L (98-107); Estimated GFR-MDRD 52; Glucose 159 mg/dL (70-105); Sodium 138 mmol/L (136-145)
--- NOTE | 2020-03-31 06:29 | PDOC.FM ---
- Subjective Subjective: Patient is post op, he reports that procedure went well and he has no pain. - Objective Vital Signs & Weight: Vital Signs (12 hours) Temp Pulse Resp BP Pulse Ox 03/31/20 03:27 94 L 03/31/20 03:20 97.7 F 77 22 H 109/80 94 L 03/31/20 00:00 84 99/62 03/30/20 20:24 98.4 F 83 17 90/55 L 94 L Weight Weight 119.884 kg I&O: 03/29/20 03/30/20 03/31/20 06:59 06:59 06:59 Intake Total 1440 1275 1210 Balance 1440 1275 1210 Result Diagrams: 03/31/20 04:42 03/31/20 04:42 Phys Exam - Physical Examination Constitutional: NAD Respiratory: no wheezing, no rales, no rhonchi Cardiovascular: RRR, no significant murmur, no rub Gastrointestinal: soft, non-tender, no distention, positive bowel sounds Dx/Plan - Plan Plan: Acute HFrEF Exacerbation 2/2 medication noncompliance - Last echo 2018: EF 20-25%, severe global hypokinesis, ECHO 03/28 shows EF 10- 15% - continue to diurese PO - strict I/Os - monitor O2 status, currently stable on RA - walking program - Cardiology/EP plan to place AICD today, patient agreeable to procedure Type 2 DM - A1c 11, random BG >300 on 03/28 - Hypoglycemia protocol, SSI - Will increase long acting insulin - continue metformin - Consult Case Management for medication assistance CAD - History of CABG 2016 - Stress test 03/28 showing significant scarring, EF estimated at 12% - troponins stable, indeterminate HTN - continue home meds HLD - continue home meds Code: DNR Prophylaxis: SCDs Fluids: SL Diet: HH Disposition: DC pending operation and post op course PCP: None, CC Addendum - Attending - Attending Attestation Date/Time: 03/31/20 1106 I personally evaluated the patient and discussed the management with Dr. Rich. I agree with the History, Examination, Assessment and Plan documented above with any addition or exceptions noted below.
[2020-03-31] MEDS ORDERED: CEFAZOLIN 1 GM VIAL ONE (06:44)
[2020-03-31] MEDS ORDERED: Gentamicin 80 MG/2 ML VIAL ONE (06:44)
[2020-03-31] MEDS ORDERED: Lidocaine 1% (PF) 30 ML VIAL ONE (06:44)
[2020-03-31] MEDS ORDERED: Midazolam HCl 2 mg/2 ml Vial ONE (07:04)
[2020-03-31] MEDS ORDERED: Famotidine/PF 20 mg/2ml Vial ONE (07:48)
[2020-03-31] MEDS ORDERED: Ketamine 50 MG/ML (10ML VIAL) ONE (07:48)
[2020-03-31] MEDS ORDERED: Scopolamine 1.5 mg/72 hour Patch ONE (07:48)
[2020-03-31] MEDS ORDERED: Ondansetron PF 4 MG/2 ML Vial ONE ×2 (07:49→08:53)
[2020-03-31] MEDS ORDERED: Metoclopramide HCl 10 MG/2 ML VIAL ONE ×2 (07:49→08:53)
[2020-03-31] MEDS ORDERED: Fentanyl 100 MCG/2 ML VIAL ONE (08:34)
[2020-03-31] MEDS ORDERED: Propofol 500 MG/50 ML VIAL ONE ×2 (08:49→08:59)
[2020-03-31] MEDS ORDERED: PHENYLEPHRINE-NS 100 MCG/ML 10 ML SYRINGE ONE (08:53)
[2020-03-31] MEDS ORDERED: Acetaminophen/Codeine 30-300mg Tablet PO PRN ×2 (10:37)
--- NOTE | 2020-03-31 10:48 | RAD ---
Exam: Chest one view HISTORY:ICD placement Comparison: 03/27/2020 FINDINGS: Cardiac silhouette:Stable cardiomegaly and sternotomy wires. ICD: Interval placement of a left-sided defibrillator with lead position of the right atrium, right v entricle and coronary sinus. Aorta: Unremarkable Pulmonary vessels: Normal Costophrenic angles: Clear LUNGS: Extensive interstitial opacities throughout the lung parenchyma, unchanged. Pneumothorax: None Osseous abnormalities: None IMPRESSION: 1. Cardia megaly 2. Interval placement of a left-sided defibrillator as described above. No pneumothorax.
[2020-03-31] MEDS: Lisinopril 5 MG TAB PO SCH (11:19)
[2020-03-31] MEDS: metFORMIN 500 MG TAB PO SCH ×2 (11:19→18:30)
[2020-03-31] MEDS: Aspirin 81 mg Enteric Coated Tablet PO SCH (11:19)
[2020-03-31] MEDS: Furosemide 40 MG TAB PO SCH (11:19)
[2020-03-31] MEDS: Carvedilol 6.25 MG TAB PO SCH ×2 (11:20→18:31)
--- NOTE | 2020-03-31 12:12 | RAD ---
Chest AP view INDICATION: Status post cardiac device placement COMPARISON: March 31, 2020 at 10:40 AM FINDINGS: Lungs: The lungs are clear Cardiac silhouette: There is stable moderate cardiomegaly Pulmonary vasculature: Pulmonary vascular congestion persists Pleural spaces: No pleural effusion or pneumothorax is demonstrated. Upper abdomen: No abnormality seen. Osseous structures: No acute osseous abnormality. Additional findings: Midline sternotomy changes and multi lead AICD is stable. IMPRESSION: Stable exam. No pneumothorax.
[2020-03-31] MEDS ORDERED: CEFAZOLIN 2 GM in Premix Bag 1 BAG IVPB SCH (14:00)
[2020-03-31 15:11] VITALS: TEMP 98.9
[2020-03-31 18:52] VITALS: BP 101/59
--- NOTE | 2020-04-01 04:02 | DIS ---
DATE OF ADMISSION: 03/27/2020 DATE OF DISCHARGE: 03/31/2020 RESIDENT: Henrik Rich MD ADMITTING ATTENDING: Sophie Grimaldo MD DISCHARGE ATTENDING: Gilbert Nelson MD CONSULTATION: Cardiology, Dr. Whipple on 03/29. Dr. Shah on 03/29. PROCEDURES: Patient had a transthoracic echo showing worsening ejection fraction of 10% to 15%. Patient also underwent stress test showing global hypokinesis with areas of scarring on the heart. Ejection fraction during the stress test was recommended at 12%. 2. AICD placement 03/31 PRIMARY DIAGNOSIS: Heart failure with reduced ejection fraction. SECONDARY DIAGNOSES: 1. Coronary artery disease, status post coronary artery bypass grafting. 2. Type 2 diabetes. DISCHARGE MEDICATIONS: 1. Coreg 6.25 mg p.o. b.i.d. 2. Metformin 500 mg p.o. b.i.d. 3. Lantus 30 units subcu at bedtime. 4. Lasix 40 mg p.o. daily. 5. Aspirin 81 mg p.o. daily. 6. Pravastatin 40 mg p.o. daily. 7. Lisinopril 5 mg p.o. daily. 8. Keflex 500 mg p.o. q.6 hours x7 days. Discontinued medications: Carvedilol 3.125 mg b.i.d., was increased to 6.25 mg b.i.d. HISTORY OF PRESENT ILLNESS/HOSPITAL COURSE: Patient is a 54-year-old man, who presented to the ER with shortness of breath. He reports he was recently on vacation and has not taken his Lasix in a few days. Initial labs concerning for troponin of 0.079, trended up to 0.1, however, was stable and BNP of 897. Patient also had a creatinine of 1.75, but downtrended to 1.43 on the day of discharge. During patient's hospital stay, he received ECHO and stress test as above. Given worsening ejection fraction, Cardiology was consulted. Patient is a patient of Dr. Peñaloza. He reported that in July he had an ejection fraction of 20% and told that AICD placement could be in his future. Given results of stress test and echo, Cardiology consulted EP, Dr. Shah, who decided to place an ICD while inpatient. Patient was given one day more to tyrone and then on 03/31 AICD was placed. Patient tolerated the procedure well and was stable for the remainder of the hospital stay. I had a long discussion with the patient about diabetes medications and glucose checks. Patient seemed very overwhelmed during hospital stay with procedure and new diagnosis of diabetes. In the hospital, random glucose was over 300. A1c was 11.0. DISPOSITION: Stable. DISCHARGE INSTRUCTIONS: 1. Location: Home. 2. Diet: Diabetic, heart-healthy. 3. Activity: As tolerated, instructions per Dr. Shah as far as limitations. 4. Followup: Please follow up with PCP [facility] within two weeks and Dr. Shah of Electrophysiology within two weeks. Job ID: [id number] [facility]
[2020-04-01] MEDS ORDERED: Cephalexin 250 MG CAP PO SCH (06:00)
--- NOTE | 2020-04-01 13:37 | PQF ---
CLINICAL DOCUMENTATION CLARIFICATION FORM: Dear Dr. Rich Date: 04/01/2020 Please exercise your independent, professional judgment in responding to the clarification form. Clinical indicators are provided on the bottom of this form for your review. Please check appropriate box(es): [ ] Acute Renal Failure [ ] Acute on Chronic Renal Failure please specify Stage of CKD (see below) [ X] CKD without Acute Renal Failure please specify Stage of CKD___3a [ ] Insignificant lab value [ ] Other diagnosis [ ] Unable to determine For continuity of documentation, please document condition throughout progress notes and discharge summary. Thank You. CLINICAL INDICATORS - SIGNS / SYMPTOMS / LABS / RESULTS AND LOCATION IN EMR *LAB (EMR): BUN Creat GFR 03/28 20 1.65 44 03/29 16 1.31 57 03/30 20 1.48 50 03/31 21 1.43 52 *DC Summary 03/31 (Hilario): Patient also had a creatinine of 1.75, but trended to 1.43 on the day of discharge. RISK FACTORS / RESULTS AND LOCATION IN EMR *H&P 03/27 ([place]): * Outside ER Lasix IV 40 mg Continue to diurese * HFrEF * HTN * Home medications: Lisinopril Furosemide TREATMENTS / RESULTS AND LOCATION IN EMR *LAB (EMR): BMP 03/28-03/31 National [employer] Guidelines for CKD Staging Stage I Kidney damage with normal or increased GFR GFR > 90 Stage II Kidney damage with mildly decreased GFR GFR 60-89 Stage III Kidney damage with moderately decreased GFR GFR 30-59 Stage IV Kidney damage with severely decreased GFR GFR 16-29 Stage V Kidney failure GFR<15 ESRD End Stage Renal Disease On dialysis Acute Renal Failure/Acute Kidney Failure defined as: Increases in SCr by (>) 0.3 mg/dl within 48 hours OR- Increases in SCr by (>) 1.5 times baseline, known or presumed to have occurred within the prior 7 days OR- Urine volume < 0.5 ml/kg/hour for 6 hours (KDIGO supplement 2012 for RIFLE/KAHLIL criteria) Thank you, Amber CDS/Business Continuity Consultant Signature: Amber Mckeon RN, CDS Phone #: [phone] [email or web address] This is a permanent part of the Medical Record MTDD
== END 2020-03-31 18:48 | disposition home or self-care (01) | DRG 227 ==
LOC: ERS 22:17 → 2NO 23:10
PROVIDERS: ADMIT Family Medicine; ATTEND Family Medicine
PROC: 3E02340 Introduction of Influenza Vaccine into Muscle, Percutaneous Approach (ICD-10-PCS; 2020-03-28)
PROC: 0JH609Z Insertion of Cardiac Resynchronization Defibrillator Pulse Generator into Chest Subcutaneous Tissue and Fascia, Open Approach (ICD-10-PCS; principal; 2020-03-31)
PROC: 02HL3KZ Insertion of Defibrillator Lead into Left Ventricle, Percutaneous Approach (ICD-10-PCS; 2020-03-31)
PROC: 02HK3KZ Insertion of Defibrillator Lead into Right Ventricle, Percutaneous Approach (ICD-10-PCS; 2020-03-31)
PROC: 02H63KZ Insertion of Defibrillator Lead into Right Atrium, Percutaneous Approach (ICD-10-PCS; 2020-03-31)
DX: I50.23 Acute on chronic systolic (congestive) heart failure (principal); I25.10 Atherosclerotic heart disease of native coronary artery without angina pectoris; Z20.828 Contact with and (suspected) exposure to other viral communicable diseases; E78.5 Hyperlipidemia, unspecified; I25.5 Ischemic cardiomyopathy; Z96.659 Presence of unspecified artificial knee joint; E78.00 Pure hypercholesterolemia, unspecified; I44.7 Left bundle-branch block, unspecified; N18.31 Chronic kidney disease, stage 3a; E11.22 Type 2 diabetes mellitus with diabetic chronic kidney disease; I12.9 Hypertensive chronic kidney disease with stage 1 through stage 4 chronic kidney disease, or unspecified chronic kidney disease; Z23 Encounter for immunization; Z95.1 Presence of aortocoronary bypass graft; Z79.899 Other long term (current) drug therapy; Z79.82 Long term (current) use of aspirin; Z91.14 Patient's other noncompliance with medication regimen; Z79.84 Long term (current) use of oral hypoglycemic drugs; Z87.891 Personal history of nicotine dependence; Z87.442 Personal history of urinary calculi
CPT/HCPCS: 33225; 33249; 36415; 36416; 71045; 76942; 78452; 80048; 80061; 83036; 83735; 84484; 85025; 87635; 90471; 90662; 93005; 93010; 93017; 93306; 99285; A9500; C1777; C1882; C1898; C1900; G0008; J0153; J0690; J1580; J1815; J1940; J2001; J2250; J2405; J2704; J2765; J3010; S0028; U0003

== ENCOUNTER 2021-01-19 11:29 | Inpatient (IN) | payer MEDICARE ==
[2021-01-19 12:07] LABS: #Eosinphils 0.2 thou/uL (0.0-0.7); #Lymphocytes 1.4 thou/uL (1.20-3.40); #Monocytes 0.6 thou/uL (0.11-0.59); #Neutrophils 8.3 thou/uL (1.40-6.50); %Basophils 0.3 % (0.0-1.0); %Eosinophils 1.5 % (0.0-10.0); %Lymphocytes 13.5 % (21.0-51.0); %Monocytes 5.4 % (0.0-10.0); %Neutrophils 79.5 % (42.0-75.0); Hemoglobin 16.7 g/dL (14.0-18.0); Mean Corpuscular HGB CONC 33.6 g/dL (32.0-36.0); Mean Corpuscular Hemoglobin 29.6 pg (27.0-31.0); Mean Platelet Volume 9.9 fL (7.4-10.4); Platelet Count 160 thou/uL (130-400); RBC Distribution Width 14.5 % (11.5-14.5); Red Blood Cell (RBC) Count 5.63 mill/uL (4.70-6.10); White Blood Cell (WBC) Count 10.4 thou/uL (4.8-10.8)
[2021-01-19 12:36] LABS: ALT (SGPT) 24 U/L (8-55); AST (SGOT) 19 U/L (5-34); Albumin 4.2 g/dL (3.5-5.0); Alkaline Phosphatase 100 U/L (40-110); Anion Gap 11 mmol/L (10-20); BUN (Urea Nitrogen) 18 mg/dL (8.4-25.7); Bilirubin, Total 0.5 mg/dL (0.2-1.2); Calc. Creatinine Clearance 0 mL/min (70-130); Calcium 10.1 mg/dL (7.8-10.44); Carbon Dioxide 27 mmol/L (22-29); Chloride 100 mmol/L (98-107); Globulin 3.9 g/dL (2.4-3.5); Glucose 196 mg/dL (70-105); Potassium 4.5 mmol/L (3.5-5.1); Protein, Total 8.1 g/dL (6.0-8.3); Sodium 133 mmol/L (136-145)
[2021-01-19] MEDS ORDERED: diphenhydrAMINE 50 MG/ML VIAL ONE (14:43)
[2021-01-19] MEDS ORDERED: Ketorolac Tromethamine 30 MG/ML VIAL ONE (14:43)
[2021-01-19] MEDS ORDERED: Acetaminophen 500 MG TAB ONE (14:43)
[2021-01-19] MEDS ORDERED: Prochlorperazine 10 MG/2 ML VIAL ONE (14:46)
[2021-01-19] MEDS ORDERED: Ondansetron ODT 4 MG TAB PO PRN (16:53)
[2021-01-19] MEDS ORDERED: HumaLOG 300 UNITS/3 ML VIAL SC PRN (18:17)
[2021-01-19] MEDS ORDERED: Dextrose 50% Abboject 50 ML SYRINGE SLOW IVP PRN (18:17)
[2021-01-19] MEDS ORDERED: Aspirin 325 mg Enteric Coated Tablet PO SCH (21:00)
[2021-01-19] MEDS: NPH, Human Insulin Isophane 300 UNIT/3 ML VIAL SC SCH (21:27)
[2021-01-19] MEDS: Nicotine 21 MG PATCH TD SCH (21:27)
[2021-01-19 21:52] VITALS: BMI 31.4
[2021-01-20 05:17] LABS: Anion Gap 11 mmol/L (10-20); BUN (Urea Nitrogen) 16 mg/dL (8.4-25.7); Calc. Creatinine Clearance 115 mL/min (70-130); Carbon Dioxide 27 mmol/L (22-29); Chloride 103 mmol/L (98-107); Potassium 3.9 mmol/L (3.5-5.1); Sodium 137 mmol/L (136-145)
[2021-01-20 05:18] LABS: Calcium 9.6 mg/dL (7.8-10.44); Glucose 139 mg/dL (70-105)
[2021-01-20] MEDS: NPH, Human Insulin Isophane 300 UNIT/3 ML VIAL SC SCH ×2 (08:41→21:52)
[2021-01-20] MEDS: metFORMIN 500 MG TAB PO SCH ×2 (08:42→18:12)
[2021-01-20] MEDS: Lisinopril 5 MG TAB PO SCH (08:43)
[2021-01-20] MEDS: Furosemide 40 MG TAB PO SCH (08:43)
[2021-01-20] MEDS: Carvedilol 6.25 MG TAB PO SCH ×2 (08:43→18:13)
[2021-01-20] MEDS: Atorvastatin Calcium 40 MG TAB PO SCH (08:46)
[2021-01-20 08:47] LABS: Cardiac Risk 4.7 (Less than 4.5)
[2021-01-20] MEDS: Acetaminophen 325 MG TAB PO PRN ×2 (08:47→15:05)
[2021-01-20] MEDS ORDERED: Aspirin 325 MG TAB PO SCH (09:00)
[2021-01-20] MEDS ORDERED: Enoxaparin Sodium 40 MG/0.4 ML SYRINGE SC SCH (09:00)
[2021-01-20] MEDS ORDERED: Ibuprofen 600 MG TAB PO SCH (10:50)
[2021-01-20] MEDS: HumaLOG 300 UNITS/3 ML VIAL SC PRN (11:26)
[2021-01-20] MEDS ORDERED: Magnevist 469MG/ML 20 ML VIAL ONE (13:40)
[2021-01-20] MEDS ORDERED: diphenhydrAMINE 25 MG CAP PO SCH (14:30)
[2021-01-20 16:55] LABS: SARS-CoV-2 PCR by NAA Not Detected (NotDetected)
[2021-01-20] MEDS: Nicotine 21 MG PATCH TD SCH (18:13)
[2021-01-21] MEDS: HumaLOG 300 UNITS/3 ML VIAL SC PRN ×3 (06:08→18:04)
[2021-01-21] MEDS: Acetaminophen 325 MG TAB PO PRN ×3 (06:08→16:59)
[2021-01-21] MEDS: Furosemide 40 MG TAB PO SCH (09:08)
[2021-01-21] MEDS: Carvedilol 6.25 MG TAB PO SCH ×2 (09:08→16:59)
[2021-01-21] MEDS: metFORMIN 500 MG TAB PO SCH ×2 (09:08→16:59)
[2021-01-21] MEDS: NPH, Human Insulin Isophane 300 UNIT/3 ML VIAL SC SCH ×2 (09:09→21:12)
[2021-01-21] MEDS: Atorvastatin Calcium 40 MG TAB PO SCH (09:09)
[2021-01-21] MEDS: Lisinopril 5 MG TAB PO SCH (09:09)
[2021-01-21 11:08] LABS: PTT 34.8 sec (22.9-36.1); Prothrombin Time 13.4 sec (12.0-14.7)
[2021-01-21 11:09] LABS: D-Dimer Test 1.36 *mcg/mL (0.27-0.43)
[2021-01-21] MEDS ORDERED: Ibuprofen 600 MG TAB PO PRN (11:37)
[2021-01-21] MEDS ORDERED: diphenhydrAMINE 50 MG CAP PO SCH (12:15)
[2021-01-21] MEDS: Nicotine 21 MG PATCH TD SCH (16:58)
[2021-01-21] MEDS ORDERED: Prochlorperazine Edisylate 10 MG in Sodium Chloride 0.9% 50 ML IVPB SCH (18:00)
[2021-01-22] MEDS: Acetaminophen 325 MG TAB PO PRN (02:23)
[2021-01-22] MEDS: Lisinopril 5 MG TAB PO SCH (08:37)
[2021-01-22] MEDS: Carvedilol 6.25 MG TAB PO SCH ×2 (08:38→17:35)
[2021-01-22] MEDS: Furosemide 40 MG TAB PO SCH (08:38)
[2021-01-22] MEDS: Atorvastatin Calcium 40 MG TAB PO SCH (08:38)
[2021-01-22] MEDS: metFORMIN 500 MG TAB PO SCH ×2 (08:38→15:54)
[2021-01-22] MEDS: NPH, Human Insulin Isophane 300 UNIT/3 ML VIAL SC SCH ×3 (08:41→20:55)
[2021-01-22 12:41] LABS: #Basophils 0.1 thou/uL (0.0-0.2); #Eosinphils 0.2 thou/uL (0.0-0.7); #Lymphocytes 2.1 thou/uL (1.20-3.40); #Monocytes 0.9 thou/uL (0.11-0.59); #Neutrophils 8.8 thou/uL (1.40-6.50); %Basophils 0.6 % (0.0-1.0); %Eosinophils 1.8 % (0.0-10.0); %Lymphocytes 17.6 % (21.0-51.0); %Monocytes 7.2 % (0.0-10.0); %Neutrophils 72.9 % (42.0-75.0); Hemoglobin 17.7 g/dL (14.0-18.0); Mean Corpuscular HGB CONC 33.1 g/dL (32.0-36.0); Mean Corpuscular Hemoglobin 29.2 pg (27.0-31.0); Mean Corpuscular Volume 88.3 fL (78.0-98.0); Platelet Count 164 thou/uL (130-400); RBC Distribution Width 14.5 % (11.5-14.5); Red Blood Cell (RBC) Count 6.06 mill/uL (4.70-6.10)
[2021-01-22 12:58] LABS: Anion Gap 16 mmol/L (10-20); BUN (Urea Nitrogen) 20 mg/dL (8.4-25.7); Calc. Creatinine Clearance 84 mL/min (70-130); Calcium 10.2 mg/dL (7.8-10.44); Carbon Dioxide 27 mmol/L (22-29); Chloride 97 mmol/L (98-107); Glucose 200 mg/dL (70-105); Potassium 3.9 mmol/L (3.5-5.1); Sodium 136 mmol/L (136-145)
[2021-01-22] MEDS ORDERED: traMADol HCl 50 MG TAB PO SCH (14:00)
[2021-01-22] MEDS ORDERED: Metoclopramide HCl 10 MG/2 ML VIAL IVP SCH (17:15)
[2021-01-22] MEDS ORDERED: Lactated Ringer's 500 ML IV SCH (17:15)
[2021-01-22] MEDS: Nicotine 21 MG PATCH TD SCH (18:20)
[2021-01-23 07:44] LABS: Anion Gap 16 mmol/L (10-20); BUN (Urea Nitrogen) 20 mg/dL (8.4-25.7); Calc. Creatinine Clearance 0 mL/min (70-130); Calcium 10.3 mg/dL (7.8-10.44); Carbon Dioxide 27 mmol/L (22-29); Chloride 97 mmol/L (98-107); Glucose 122 mg/dL (70-105); Potassium 3.7 mmol/L (3.5-5.1); Sodium 136 mmol/L (136-145)
[2021-01-23] MEDS: Carvedilol 6.25 MG TAB PO SCH (09:41)
[2021-01-23] MEDS: Atorvastatin Calcium 40 MG TAB PO SCH (09:41)
[2021-01-23] MEDS: metFORMIN 500 MG TAB PO SCH (09:42)
[2021-01-23] MEDS: NPH, Human Insulin Isophane 300 UNIT/3 ML VIAL SC SCH (09:42)
[2021-01-23] MEDS ORDERED: Prochlorperazine Edisylate 10 MG in Sodium Chloride 0.9% 50 ML IVPB SCH (11:00)
[2021-01-23] MEDS ORDERED: diphenhydrAMINE 25 MG in Sodium Chloride 0.9% 50 ML IVPB SCH (11:00)
[2021-01-23 12:13] VITALS: BP 103/59; TEMP 97.5
[2021-01-25 12:28] LABS: Cardiolipin IgA Ab 8.4 APL-U/mL (<14 Negative); Cardiolipin IgG Ab 2.8 GPL-U/mL (<10 Negative); EliA APS New Method **** NEW METHOD ****
[2021-01-25 12:29] LABS: Protein C Activity 141 % (78-152)
[2021-01-25 13:12] LABS: HEX PHOS LA Tube 1 40.8 SEC; HEX PHOS LA Tube 2 37.4 SEC; Hexagonal Phospholipid Neut 3.3 SEC (0-8.0)
== END 2021-01-23 17:24 | disposition left against medical advice (07) | DRG 64 ==
LOC: ERS 11:29 → 3SE 16:18
PROVIDERS: ADMIT Emergency Medicine; ATTEND Emergency Medicine
PROC: 4B02XTZ Measurement of Cardiac Defibrillator, External Approach (ICD-10-PCS; principal; 2021-01-21)
DX: I63.522 Cerebral infarction due to unspecified occlusion or stenosis of left anterior cerebral artery (principal); G93.6 Cerebral edema; I61.4 Nontraumatic intracerebral hemorrhage in cerebellum; I13.0 Hypertensive heart and chronic kidney disease with heart failure and stage 1 through stage 4 chronic kidney disease, or unspecified chronic kidney disease; G81.94 Hemiplegia, unspecified affecting left nondominant side; I47.2 Ventricular tachycardia; I42.0 Dilated cardiomyopathy; I50.42 Chronic combined systolic (congestive) and diastolic (congestive) heart failure; Z20.822 Contact with and (suspected) exposure to COVID-19; I63.531 Cerebral infarction due to unspecified occlusion or stenosis of right posterior cerebral artery; N18.30 Chronic kidney disease, stage 3 unspecified; E11.22 Type 2 diabetes mellitus with diabetic chronic kidney disease; I67.2 Cerebral atherosclerosis; I25.10 Atherosclerotic heart disease of native coronary artery without angina pectoris; R29.705 NIHSS score 5; I25.5 Ischemic cardiomyopathy; F17.210 Nicotine dependence, cigarettes, uncomplicated; E66.01 Morbid (severe) obesity due to excess calories; Z53.29 Procedure and treatment not carried out because of patient's decision for other reasons; Z95.810 Presence of automatic (implantable) cardiac defibrillator; Z95.1 Presence of aortocoronary bypass graft; Z79.82 Long term (current) use of aspirin; Z79.899 Other long term (current) drug therapy; Z79.4 Long term (current) use of insulin; Z90.49 Acquired absence of other specified parts of digestive tract; Z71.6 Tobacco abuse counseling; Z68.34 Body mass index [BMI] 34.0-34.9, adult
CPT/HCPCS: 36415; 36416; 70450; 70553; 71045; 80048; 80053; 80061; 83090; 83880; 84484; 85025; 85240; 85300; 85303; 85305; 85307; 85379; 85598; 85610; 85730; 86147; 93005; 93306; 93880; 96374; 96375; A9579; J0780; J1200; J1650; J1815; J1885; J2765; J7120; Q0162; U0003; U0005

== ENCOUNTER 2021-10-23 09:07 | Inpatient (IN) | payer MEDICARE ==
[2021-10-23 09:41] LABS: #Basophils 0.1 thou/uL (0.0-0.2); #Eosinphils 0.1 thou/uL (0.0-0.7); #Lymphocytes 1.6 thou/uL (1.20-3.40); #Monocytes 0.7 thou/uL (0.11-0.59); #Neutrophils 6.9 thou/uL (1.40-6.50); %Basophils 0.6 % (0.0-1.0); %Eosinophils 0.7 % (0.0-10.0); %Lymphocytes 17.1 % (21.0-51.0); %Monocytes 7.8 % (0.0-10.0); %Neutrophils 73.8 % (42.0-75.0); Hemoglobin 14.7 g/dL (14.0-18.0); Mean Corpuscular HGB CONC 31.7 g/dL (32.0-36.0); Mean Corpuscular Hemoglobin 27.9 pg (27.0-31.0); Mean Platelet Volume 9.5 fL (7.4-10.4); Platelet Count 168 thou/uL (130-400); RBC Distribution Width 15.2 % (11.5-14.5); Red Blood Cell (RBC) Count 5.26 mill/uL (4.70-6.10); White Blood Cell (WBC) Count 9.4 thou/uL (4.8-10.8)
[2021-10-23] MEDS ORDERED: Furosemide 40 MG/4 ML VIAL ONE (09:46)
[2021-10-23] MEDS ORDERED: Furosemide 20 MG/2 ML VIAL ONE (09:55)
[2021-10-23 10:00] LABS: ALT (SGPT) 64 U/L (8-55); AST (SGOT) 56 U/L (5-34); Alkaline Phosphatase 133 U/L (40-110); Anion Gap 14 mmol/L (10-20); BUN (Urea Nitrogen) 36 mg/dL (8.4-25.7); Bilirubin, Total 2.9 mg/dL (0.2-1.2); CK (CPK) 66 U/L (30-200); Calc. Creatinine Clearance 0 mL/min (70-130); Calcium 9.4 mg/dL (7.8-10.44); Carbon Dioxide 29 mmol/L (22-29); Chloride 92 mmol/L (98-107); Globulin 3.6 g/dL (2.4-3.5); Glucose 237 mg/dL (70-105); Lipase 24 U/L (8-78); Potassium 3.3 mmol/L (3.5-5.1); Protein, Total 7.6 g/dL (6.0-8.3); Sodium 132 mmol/L (136-145)
[2021-10-23 10:22] LABS: CKMB 3.4 ng/mL (0-6.6)
[2021-10-23 12:49] LABS: Troponin I 0.072 ng/mL (< 0.028)
[2021-10-23] MEDS ORDERED: Ondansetron PF 4 MG/2 ML Vial IVP PRN (12:54)
[2021-10-23] MEDS ORDERED: Ondansetron ODT 4 MG TAB PO PRN (12:54)
[2021-10-23] MEDS ORDERED: Potassium Chloride 20 MEQ TAB PO SCH ×2 (13:15→20:30)
[2021-10-23] MEDS ORDERED: Dextrose 50% Abboject 50 ML SYRINGE SLOW IVP PRN (13:19)
[2021-10-23] MEDS ORDERED: Dextrose 5% in Water 1,000 ML IV PRN (13:19)
[2021-10-23 13:35] LABS: Phosphorus 3.6 mg/dL (2.3-4.7)
[2021-10-23 13:46] VITALS: BMI 31.6
[2021-10-23] MEDS ORDERED: Furosemide 40 MG/4 ML VIAL SLOW IVP SCH (14:00)
[2021-10-23 16:08] LABS: Troponin I 0.075 ng/mL (< 0.028)
[2021-10-23] MEDS: Carvedilol 6.25 MG TAB PO SCH (17:07)
[2021-10-23] MEDS ORDERED: Furosemide 20 MG/2 ML VIAL SLOW IVP SCH (20:30)
[2021-10-23] MEDS: Atorvastatin Calcium 40 MG TAB PO SCH (20:40)
[2021-10-24] MEDS: Furosemide 40 MG/4 ML VIAL SLOW IVP SCH ×2 (05:20→15:24)
[2021-10-24 05:30] LABS: #Basophils 0.1 thou/uL (0.0-0.2); #Eosinphils 0.2 thou/uL (0.0-0.7); #Lymphocytes 2.1 thou/uL (1.20-3.40); #Monocytes 0.9 thou/uL (0.11-0.59); #Neutrophils 5.9 thou/uL (1.40-6.50); %Basophils 0.7 % (0.0-1.0); %Eosinophils 1.9 % (0.0-10.0); %Lymphocytes 22.6 % (21.0-51.0); %Monocytes 10.3 % (0.0-10.0); %Neutrophils 64.4 % (42.0-75.0); Hemoglobin 14.4 g/dL (14.0-18.0); Mean Corpuscular HGB CONC 31.3 g/dL (32.0-36.0); Mean Corpuscular Hemoglobin 28.1 pg (27.0-31.0); Mean Corpuscular Volume 89.8 fL (78.0-98.0); Mean Platelet Volume 9.4 fL (7.4-10.4); Platelet Count 164 thou/uL (130-400); RBC Distribution Width 15.4 % (11.5-14.5); White Blood Cell (WBC) Count 9.1 thou/uL (4.8-10.8)
[2021-10-24 05:57] LABS: ALT (SGPT) 60 U/L (8-55); AST (SGOT) 45 U/L (5-34); Albumin 3.8 g/dL (3.5-5.0); Alkaline Phosphatase 127 U/L (40-110); Anion Gap 13 mmol/L (10-20); BUN (Urea Nitrogen) 32 mg/dL (8.4-25.7); Bilirubin, Total 2.6 mg/dL (0.2-1.2); Calc. Creatinine Clearance 89 mL/min (70-130); Calcium 9.3 mg/dL (7.8-10.44); Carbon Dioxide 31 mmol/L (22-29); Chloride 93 mmol/L (98-107); Globulin 3.5 g/dL (2.4-3.5); Glucose 173 mg/dL (70-105); Potassium 3.4 mmol/L (3.5-5.1); Protein, Total 7.3 g/dL (6.0-8.3); Sodium 134 mmol/L (136-145)
[2021-10-24] MEDS: HumaLOG 300 UNITS/3 ML VIAL SC PRN ×2 (06:12→17:07)
[2021-10-24] MEDS: Potassium Chloride 20 MEQ TAB PO SCH (07:46)
[2021-10-24] MEDS: Lisinopril 5 MG TAB PO SCH (07:46)
[2021-10-24] MEDS: Aspirin 81 mg Enteric Coated Tablet PO SCH (07:46)
[2021-10-24] MEDS: Carvedilol 6.25 MG TAB PO SCH ×2 (07:46→16:59)
[2021-10-24] MEDS: Enoxaparin Sodium 40 MG/0.4 ML SYRINGE SC SCH (07:46)
[2021-10-24 09:35] LABS: Hemoglobin A1c 7.4 % (4.0-6.0)
[2021-10-24] MEDS: Atorvastatin Calcium 40 MG TAB PO SCH (21:24)
[2021-10-25 05:25] LABS: #Basophils 0.1 thou/uL (0.0-0.2); #Eosinphils 0.2 thou/uL (0.0-0.7); #Monocytes 0.9 thou/uL (0.11-0.59); #Neutrophils 6.6 thou/uL (1.40-6.50); %Basophils 0.7 % (0.0-1.0); %Eosinophils 1.9 % (0.0-10.0); %Lymphocytes 20.3 % (21.0-51.0); %Monocytes 9.1 % (0.0-10.0); %Neutrophils 67.9 % (42.0-75.0); Hemoglobin 14.2 g/dL (14.0-18.0); Mean Corpuscular HGB CONC 31.4 g/dL (32.0-36.0); Mean Corpuscular Hemoglobin 28.1 pg (27.0-31.0); Mean Corpuscular Volume 89.4 fL (78.0-98.0); Mean Platelet Volume 9.1 fL (7.4-10.4); Platelet Count 173 thou/uL (130-400); RBC Distribution Width 15.6 % (11.5-14.5); Red Blood Cell (RBC) Count 5.06 mill/uL (4.70-6.10); White Blood Cell (WBC) Count 9.7 thou/uL (4.8-10.8)
[2021-10-25 05:50] LABS: ALT (SGPT) 52 U/L (8-55); AST (SGOT) 41 U/L (5-34); Albumin 3.5 g/dL (3.5-5.0); Alkaline Phosphatase 129 U/L (40-110); Anion Gap 14 mmol/L (10-20); BUN (Urea Nitrogen) 32 mg/dL (8.4-25.7); Bilirubin, Total 2.4 mg/dL (0.2-1.2); Calc. Creatinine Clearance 71 mL/min (70-130); Carbon Dioxide 31 mmol/L (22-29); Chloride 96 mmol/L (98-107); Globulin 3.7 g/dL (2.4-3.5); Glucose 175 mg/dL (70-105); Potassium 4.4 mmol/L (3.5-5.1); Protein, Total 7.2 g/dL (6.0-8.3); Sodium 137 mmol/L (136-145)
[2021-10-25] MEDS: HumaLOG 300 UNITS/3 ML VIAL SC PRN ×2 (06:21→11:45)
[2021-10-25] MEDS: Carvedilol 6.25 MG TAB PO SCH (08:23)
[2021-10-25] MEDS: Lisinopril 5 MG TAB PO SCH (08:24)
[2021-10-25] MEDS: Enoxaparin Sodium 40 MG/0.4 ML SYRINGE SC SCH (08:24)
[2021-10-25] MEDS: Aspirin 81 mg Enteric Coated Tablet PO SCH (08:24)
[2021-10-25] MEDS: Potassium Chloride 20 MEQ TAB PO SCH (08:24)
[2021-10-25] MEDS ORDERED: Furosemide 40 MG TAB PO SCH (09:00)
[2021-10-25] MEDS ORDERED: Empagliflozin 10 MG TAB PO SCH (09:00)
[2021-10-25] MEDS ORDERED: Furosemide 20 MG/2 ML VIAL SLOW IVP SCH (09:00)
[2021-10-25 11:03] VITALS: BP 107/67; TEMP 98
== END 2021-10-25 14:45 | disposition home or self-care (01) | DRG 291 ==
LOC: ERS 09:07 → 2SW 12:10 → OBSVTOIN 10-24 09:11
PROVIDERS: ADMIT Family Medicine; ATTEND Family Medicine
DX: I13.0 Hypertensive heart and chronic kidney disease with heart failure and stage 1 through stage 4 chronic kidney disease, or unspecified chronic kidney disease (principal); I50.23 Acute on chronic systolic (congestive) heart failure; E87.1 Hypo-osmolality and hyponatremia; N17.9 Acute kidney failure, unspecified; E11.22 Type 2 diabetes mellitus with diabetic chronic kidney disease; N18.30 Chronic kidney disease, stage 3 unspecified; I25.10 Atherosclerotic heart disease of native coronary artery without angina pectoris; F17.210 Nicotine dependence, cigarettes, uncomplicated; F12.90 Cannabis use, unspecified, uncomplicated; E87.6 Hypokalemia; R74.01 Elevation of levels of liver transaminase levels; E80.6 Other disorders of bilirubin metabolism; K76.1 Chronic passive congestion of liver; I08.1 Rheumatic disorders of both mitral and tricuspid valves; I48.0 Paroxysmal atrial fibrillation; I69.312 Visuospatial deficit and spatial neglect following cerebral infarction; Z20.822 Contact with and (suspected) exposure to COVID-19; Z91.14 Patient's other noncompliance with medication regimen; Z79.01 Long term (current) use of anticoagulants; Z79.84 Long term (current) use of oral hypoglycemic drugs; Z72.89 Other problems related to lifestyle; Z79.82 Long term (current) use of aspirin; Z79.4 Long term (current) use of insulin; Z79.899 Other long term (current) drug therapy; Z95.1 Presence of aortocoronary bypass graft; Z95.810 Presence of automatic (implantable) cardiac defibrillator; Z90.49 Acquired absence of other specified parts of digestive tract; Z98.890 Other specified postprocedural states; Z80.1 Family history of malignant neoplasm of trachea, bronchus and lung; Z80.0 Family history of malignant neoplasm of digestive organs; Z82.49 Family history of ischemic heart disease and other diseases of the circulatory system
CPT/HCPCS: 36415; 36416; 71045; 80053; 82550; 82553; 83036; 83690; 83735; 83880; 84100; 84484; 85025; 93005; 93010; 93306; 93798; 96374; J1650; J1815; J1940; U0003; U0005

== ENCOUNTER 2021-10-27 20:59 | Inpatient (IN) | payer MEDICARE ==
[2021-10-27 22:07] LABS: #Basophils 0.1 thou/uL (0.0-0.2); #Eosinphils 0.2 thou/uL (0.0-0.7); #Lymphocytes 2.4 thou/uL (1.20-3.40); #Monocytes 0.9 thou/uL (0.11-0.59); #Neutrophils 5.6 thou/uL (1.40-6.50); %Basophils 0.8 % (0.0-1.0); %Eosinophils 1.8 % (0.0-10.0); %Lymphocytes 26.2 % (21.0-51.0); %Monocytes 9.8 % (0.0-10.0); %Neutrophils 61.5 % (42.0-75.0); Hemoglobin 14.2 g/dL (14.0-18.0); Mean Corpuscular HGB CONC 32.3 g/dL (32.0-36.0); Mean Corpuscular Hemoglobin 28.6 pg (27.0-31.0); Mean Corpuscular Volume 88.7 fL (78.0-98.0); Mean Platelet Volume 9.5 fL (7.4-10.4); Platelet Count 180 thou/uL (130-400); RBC Distribution Width 15.4 % (11.5-14.5); Red Blood Cell (RBC) Count 4.97 mill/uL (4.70-6.10); White Blood Cell (WBC) Count 9.1 thou/uL (4.8-10.8)
[2021-10-27 22:35] LABS: ALT (SGPT) 45 U/L (8-55); AST (SGOT) 35 U/L (5-34); Albumin 3.8 g/dL (3.5-5.0); Alkaline Phosphatase 137 U/L (40-110); Anion Gap 16 mmol/L (10-20); BUN (Urea Nitrogen) 34 mg/dL (8.4-25.7); Calc. Creatinine Clearance 0 mL/min (70-130); Calcium 8.9 mg/dL (7.8-10.44); Carbon Dioxide 25 mmol/L (22-29); Chloride 95 mmol/L (98-107); Globulin 3.2 g/dL (2.4-3.5); Glucose 139 mg/dL (70-105); Potassium 4.2 mmol/L (3.5-5.1); Sodium 132 mmol/L (136-145)
[2021-10-27] MEDS ORDERED: Furosemide 40 MG/4 ML VIAL ONE (22:56)
[2021-10-27] MEDS ORDERED: Acetaminophen 325 MG TAB PO PRN (23:15)
[2021-10-27] MEDS ORDERED: Nicotine 14 MG PATCH TD SCH (23:30)
[2021-10-27] MEDS ORDERED: Apixaban 5 MG TAB PO SCH (23:45)
[2021-10-27] MEDS ORDERED: Carvedilol 6.25 MG TAB PO SCH (23:45)
[2021-10-28 00:52] VITALS: BMI 32.5
[2021-10-28] MEDS ORDERED: Dextrose 50% Abboject 50 ML SYRINGE SLOW IVP PRN (01:25)
[2021-10-28] MEDS ORDERED: Dextrose 5% in Water 1,000 ML IV PRN (01:25)
[2021-10-28] MEDS ORDERED: HumaLOG 300 UNITS/3 ML VIAL SC PRN (01:25)
[2021-10-28 01:29] LABS: Hemoglobin 13.7 g/dL (14.0-18.0); Platelet Count 185 thou/uL (130-400)
[2021-10-28 01:48] LABS: Magnesium 2.4 mg/dL (1.6-2.6); Phosphorus 4.4 mg/dL (2.3-4.7)
[2021-10-28 01:49] LABS: Troponin I 0.064 ng/mL (< 0.028)
[2021-10-28] MEDS: Heparin 10,000 UNITS/ 10 ML VIAL SLOW IVP SCH ×3 (02:17→17:46)
[2021-10-28] MEDS: Heparin 25,000 units/D5W 500 ML IVPB SCH (02:17)
[2021-10-28 03:21] LABS: Bacteria/HPF None Seen HPF (None Seen); Bilirubin Negative (Negative); Blood, Urine Negative (Negative); Clarity Clear (Clear); Glucose, Urine (Dipstick) 100 mg/dL (Negative); Ketone, Urine Negative (Negative); Leukocyte Negative Leu/uL (Negative); Nitrite Negative (Negative); Protein, Urine (Dipstick) Negative (Neg-Trace); RBC/HPF None Seen HPF (0-3); Specific Gravity, Urine 1.021 (1.002-1.036); Squamous Epithelial None Seen HPF (0-3); Urobilinogen Normal mg/dL (Less than 2); WBC/HPF None Seen HPF (0-3)
[2021-10-28 03:22] LABS: Urine Culture Reflex No No
[2021-10-28 05:20] LABS: Anion Gap 17 mmol/L (10-20); BUN (Urea Nitrogen) 32 mg/dL (8.4-25.7); Calc. Creatinine Clearance 78 mL/min (70-130); Calcium 8.9 mg/dL (7.8-10.44); Carbon Dioxide 26 mmol/L (22-29); Chloride 95 mmol/L (98-107); Glucose 130 mg/dL (70-105); Potassium 4.2 mmol/L (3.5-5.1); Sodium 134 mmol/L (136-145)
[2021-10-28 05:26] LABS: Troponin I 0.069 ng/mL (< 0.028)
[2021-10-28 08:51] LABS: INR-International Normal Ratio 1.3; PTT 38.7 sec (22.9-36.1); Prothrombin Time 16.2 sec (12.0-14.7)
[2021-10-28] MEDS ORDERED: Apixaban 5 MG TAB PO SCH (09:00)
[2021-10-28] MEDS: Lisinopril 5 MG TAB PO SCH (09:25)
[2021-10-28] MEDS: Carvedilol 6.25 MG TAB PO SCH ×2 (09:25→17:19)
[2021-10-28] MEDS: Aspirin Chewable 81 MG TAB PO SCH (09:25)
[2021-10-28] MEDS: Atorvastatin Calcium 40 MG TAB PO SCH (09:25)
[2021-10-28] MEDS ORDERED: Empagliflozin 10 MG TAB PO SCH (11:30)
[2021-10-28] MEDS ORDERED: Furosemide 40 MG TAB PO SCH (11:30)
[2021-10-28] MEDS: HumaLOG 300 UNITS/3 ML VIAL SC PRN (17:19)
[2021-10-29] MEDS: Heparin 10,000 UNITS/ 10 ML VIAL SLOW IVP SCH ×2 (00:19→21:10)
[2021-10-29] MEDS: Heparin 25,000 units/D5W 500 ML IVPB SCH (04:40)
[2021-10-29] MEDS: HumaLOG 300 UNITS/3 ML VIAL SC PRN ×2 (06:24→17:46)
[2021-10-29 06:34] LABS: Anion Gap 14 mmol/L (10-20); BUN (Urea Nitrogen) 33 mg/dL (8.4-25.7); Calc. Creatinine Clearance 76 mL/min (70-130); Calcium 8.6 mg/dL (7.8-10.44); Carbon Dioxide 29 mmol/L (22-29); Chloride 95 mmol/L (98-107); Glucose 152 mg/dL (70-105); Potassium 4.1 mmol/L (3.5-5.1); Sodium 134 mmol/L (136-145)
[2021-10-29] MEDS ORDERED: Furosemide 40 MG TAB PO SCH (09:00)
[2021-10-29] MEDS: Aspirin Chewable 81 MG TAB PO SCH (10:23)
[2021-10-29] MEDS: Atorvastatin Calcium 40 MG TAB PO SCH (10:24)
[2021-10-29] MEDS: Empagliflozin 10 MG TAB PO SCH (10:24)
[2021-10-29] MEDS: Carvedilol 6.25 MG TAB PO SCH ×2 (10:25→18:01)
[2021-10-29] MEDS: Lisinopril 5 MG TAB PO SCH (10:26)
[2021-10-29] MEDS: Warfarin Sodium 5 MG TAB PO SCH (17:44)
[2021-10-30 00:28] LABS: Hemoglobin 13.4 g/dL (14.0-18.0); Platelet Count 155 thou/uL (130-400)
[2021-10-30 05:32] LABS: INR-International Normal Ratio 1.2; Prothrombin Time 15.8 sec (12.0-14.7)
[2021-10-30 05:51] LABS: Anion Gap 14 mmol/L (10-20); BUN (Urea Nitrogen) 28 mg/dL (8.4-25.7); Calc. Creatinine Clearance 76 mL/min (70-130); Calcium 8.7 mg/dL (7.8-10.44); Carbon Dioxide 27 mmol/L (22-29); Chloride 99 mmol/L (98-107); Glucose 136 mg/dL (70-105); Sodium 136 mmol/L (136-145)
[2021-10-30] MEDS ORDERED: Torsemide 20 MG TAB PO SCH (09:00)
[2021-10-30] MEDS ORDERED: Furosemide 40 MG TAB PO SCH (09:00)
[2021-10-30] MEDS: Empagliflozin 10 MG TAB PO SCH (10:37)
[2021-10-30] MEDS: Aspirin Chewable 81 MG TAB PO SCH (10:37)
[2021-10-30] MEDS: Atorvastatin Calcium 40 MG TAB PO SCH (10:37)
[2021-10-30] MEDS: Enoxaparin Sodium 120 MG/0.8 ML SYRINGE SC SCH ×2 (10:37→20:17)
[2021-10-30] MEDS: Torsemide 20 MG TAB PO SCH (10:38)
[2021-10-30] MEDS: Lisinopril 5 MG TAB PO SCH (10:38)
[2021-10-30] MEDS: Carvedilol 6.25 MG TAB PO SCH ×2 (10:41→17:26)
[2021-10-30] MEDS: Warfarin Sodium 5 MG TAB PO SCH (17:25)
[2021-10-31 05:16] LABS: Anion Gap 15 mmol/L (10-20); BUN (Urea Nitrogen) 25 mg/dL (8.4-25.7); Calc. Creatinine Clearance 80 mL/min (70-130); Calcium 9.4 mg/dL (7.8-10.44); Carbon Dioxide 24 mmol/L (22-29); Chloride 101 mmol/L (98-107); Glucose 107 mg/dL (70-105); Potassium 4.2 mmol/L (3.5-5.1); Sodium 136 mmol/L (136-145)
[2021-10-31] MEDS: Lisinopril 5 MG TAB PO SCH ×2 (09:44→10:57)
[2021-10-31] MEDS: Aspirin Chewable 81 MG TAB PO SCH (09:44)
[2021-10-31] MEDS: Torsemide 20 MG TAB PO SCH ×2 (09:45→11:23)
[2021-10-31] MEDS: Empagliflozin 10 MG TAB PO SCH (09:45)
[2021-10-31] MEDS: Carvedilol 6.25 MG TAB PO SCH ×3 (09:45→19:44)
[2021-10-31] MEDS: Atorvastatin Calcium 40 MG TAB PO SCH (09:45)
[2021-10-31] MEDS: Enoxaparin Sodium 120 MG/0.8 ML SYRINGE SC SCH ×2 (09:45→22:35)
[2021-10-31 10:27] LABS: INR-International Normal Ratio 1.2; PTT 42.5 sec (22.9-36.1); Prothrombin Time 15.7 sec (12.0-14.7)
[2021-10-31] MEDS: Warfarin Sodium 10 MG TAB PO SCH (17:14)
[2021-11-01 00:42] LABS: Hemoglobin 13.1 g/dL (14.0-18.0); Platelet Count 126 thou/uL (130-400)
[2021-11-01 05:09] LABS: INR-International Normal Ratio 1.5; PTT 52.7 sec (22.9-36.1); Prothrombin Time 17.8 sec (12.0-14.7)
[2021-11-01 05:15] LABS: Anion Gap 16 mmol/L (10-20); BUN (Urea Nitrogen) 26 mg/dL (8.4-25.7); Calc. Creatinine Clearance 72 mL/min (70-130); Calcium 9.3 mg/dL (7.8-10.44); Carbon Dioxide 25 mmol/L (22-29); Chloride 99 mmol/L (98-107); Glucose 120 mg/dL (70-105); Potassium 4.4 mmol/L (3.5-5.1); Sodium 136 mmol/L (136-145)
[2021-11-01] MEDS: Lisinopril 5 MG TAB PO SCH (10:19)
[2021-11-01] MEDS: Aspirin Chewable 81 MG TAB PO SCH (10:19)
[2021-11-01] MEDS: Torsemide 20 MG TAB PO SCH (10:19)
[2021-11-01] MEDS: Empagliflozin 10 MG TAB PO SCH (10:20)
[2021-11-01] MEDS: Carvedilol 6.25 MG TAB PO SCH (10:20)
[2021-11-01] MEDS: Enoxaparin Sodium 120 MG/0.8 ML SYRINGE SC SCH ×2 (10:20→21:08)
[2021-11-01] MEDS: Atorvastatin Calcium 40 MG TAB PO SCH (10:21)
[2021-11-01] MEDS: Warfarin Sodium 10 MG TAB PO SCH (18:39)
[2021-11-01] MEDS: Carvedilol 3.125 MG TAB PO SCH (18:39)
[2021-11-02 05:02] LABS: INR-International Normal Ratio 2.1; Prothrombin Time 24.3 sec (12.0-14.7)
[2021-11-02 05:11] LABS: Anion Gap 14 mmol/L (10-20); BUN (Urea Nitrogen) 28 mg/dL (8.4-25.7); Calc. Creatinine Clearance 75 mL/min (70-130); Calcium 8.9 mg/dL (7.8-10.44); Carbon Dioxide 23 mmol/L (22-29); Chloride 100 mmol/L (98-107); Glucose 111 mg/dL (70-105); Potassium 4.3 mmol/L (3.5-5.1); Sodium 133 mmol/L (136-145)
[2021-11-02] MEDS: HumaLOG 300 UNITS/3 ML VIAL SC PRN (05:53)
[2021-11-02] MEDS: Empagliflozin 10 MG TAB PO SCH (08:46)
[2021-11-02] MEDS: Enoxaparin Sodium 120 MG/0.8 ML SYRINGE SC SCH (08:46)
[2021-11-02] MEDS: Carvedilol 3.125 MG TAB PO SCH (08:46)
[2021-11-02] MEDS: Aspirin Chewable 81 MG TAB PO SCH (08:46)
[2021-11-02] MEDS: Atorvastatin Calcium 40 MG TAB PO SCH (08:46)
[2021-11-02] MEDS: Lisinopril 5 MG TAB PO SCH ×2 (08:46→08:49)
[2021-11-02] MEDS ORDERED: Torsemide 10 MG TAB PO SCH (09:00)
[2021-11-02 11:25] VITALS: BP 97/62; TEMP 97.9
[2021-11-02] MEDS ORDERED: metFORMIN 500 MG TAB PO SCH (17:00)
== END 2021-11-02 13:56 | disposition home or self-care (01) | DRG 291 ==
LOC: ERS 20:59 → 2NO 23:08
PROVIDERS: ADMIT Student in an Organized Health Care Education/Training Program; ATTEND Student in an Organized Health Care Education/Training Program
DX: I13.0 Hypertensive heart and chronic kidney disease with heart failure and stage 1 through stage 4 chronic kidney disease, or unspecified chronic kidney disease (principal); I50.23 Acute on chronic systolic (congestive) heart failure; E87.1 Hypo-osmolality and hyponatremia; N17.9 Acute kidney failure, unspecified; I47.2 Ventricular tachycardia; Z20.822 Contact with and (suspected) exposure to COVID-19; I25.10 Atherosclerotic heart disease of native coronary artery without angina pectoris; E11.22 Type 2 diabetes mellitus with diabetic chronic kidney disease; N18.30 Chronic kidney disease, stage 3 unspecified; F17.210 Nicotine dependence, cigarettes, uncomplicated; R94.31 Abnormal electrocardiogram [ECG] [EKG]; I25.5 Ischemic cardiomyopathy; I48.0 Paroxysmal atrial fibrillation; Z79.82 Long term (current) use of aspirin; Z95.810 Presence of automatic (implantable) cardiac defibrillator; Z79.84 Long term (current) use of oral hypoglycemic drugs; Z79.01 Long term (current) use of anticoagulants; Z79.899 Other long term (current) drug therapy; Z86.73 Personal history of transient ischemic attack (TIA), and cerebral infarction without residual deficits; Z95.1 Presence of aortocoronary bypass graft; Z90.49 Acquired absence of other specified parts of digestive tract; Z98.890 Other specified postprocedural states; Z80.1 Family history of malignant neoplasm of trachea, bronchus and lung; Z80.0 Family history of malignant neoplasm of digestive organs; Z82.49 Family history of ischemic heart disease and other diseases of the circulatory system; Z91.14 Patient's other noncompliance with medication regimen
CPT/HCPCS: 36415; 36416; 71045; 71275; 80048; 80053; 81001; 82553; 83605; 83735; 83880; 84100; 84484; 85014; 85018; 85025; 85049; 85610; 85730; 87040; 93005; 93306; 96374; J1644; J1650; J1815; J1940

== ENCOUNTER 2021-11-08 06:28 | Inpatient (IN) | payer MEDICARE ==
[2021-11-08] MEDS ORDERED: Benzonatate 100 MG CAP ONE ×2 (06:53→06:55)
[2021-11-08] MEDS ORDERED: Acetaminophen 325 MG TAB PO PRN (07:45)
[2021-11-08] MEDS ORDERED: Dextrose 5% in Water 1,000 ML IV PRN (07:45)
[2021-11-08] MEDS ORDERED: Acetaminophen 650 MG Suppository PR PRN (07:45)
[2021-11-08] MEDS ORDERED: Dextrose 50% Abboject 50 ML SYRINGE SLOW IVP PRN (07:45)
[2021-11-08] MEDS ORDERED: HumaLOG 300 UNITS/3 ML VIAL SC PRN ×2 (07:47)
[2021-11-08] MEDS ORDERED: Dexamethasone 10 MG/ML VIAL ONE (09:55)
[2021-11-08] MEDS: Dexamethasone 4 mg/ml Vial SLOW IVP SCH ×2 (10:00→21:01)
[2021-11-08] MEDS: Atorvastatin Calcium 40 MG TAB PO SCH (10:48)
[2021-11-08] MEDS: Lisinopril 2.5 MG TAB PO SCH (10:48)
[2021-11-08] MEDS: Empagliflozin 10 MG TAB PO SCH (10:48)
[2021-11-08 12:06] VITALS: BMI 30.9
[2021-11-08] MEDS: Torsemide 10 MG TAB PO SCH (12:08)
[2021-11-08] MEDS: Cefepime 2 GM in Sodium Chloride 0.9% 100 ML IVPB SCH ×2 (14:07→21:02)
[2021-11-08] MEDS: metFORMIN 500 MG TAB PO SCH (16:50)
[2021-11-08] MEDS: Carvedilol 3.125 MG TAB PO SCH (16:50)
[2021-11-08] MEDS: VANCOMYCIN 1.75 GM/500 ML BAG 1.75 GM in Premix Bag 1 BAG IVPB SCH (22:03)
[2021-11-09 05:10] LABS: Lactic Acid 3.1 mmol/L (0.5-2.2)
[2021-11-09 05:11] LABS: Prothrombin Time 50.3 sec (12.0-14.7)
[2021-11-09 05:15] LABS: Anion Gap 17 mmol/L (10-20); BUN (Urea Nitrogen) 33 mg/dL (8.4-25.7); Calc. Creatinine Clearance 97 mL/min (70-130); Carbon Dioxide 22 mmol/L (22-29); Chloride 102 mmol/L (98-107); Potassium 4.6 mmol/L (3.5-5.1); Sodium 136 mmol/L (136-145)
[2021-11-09 05:16] LABS: ALT (SGPT) 155 U/L (8-55); AST (SGOT) 105 U/L (5-34); Albumin 3.3 g/dL (3.5-5.0); Alkaline Phosphatase 131 U/L (40-110); Bilirubin, Total 2.1 mg/dL (0.2-1.2); Calcium 8.7 mg/dL (7.8-10.44); Globulin 3.2 g/dL (2.4-3.5); Glucose 187 mg/dL (70-105); Protein, Total 6.5 g/dL (6.0-8.3)
[2021-11-09 05:23] LABS: #Lymphocytes 1.2 thou/uL (1.20-3.40); #Monocytes 0.4 thou/uL (0.11-0.59); #Neutrophils 4.2 thou/uL (1.40-6.50); %Basophils 0.5 % (0.0-1.0); %Eosinophils 0.5 % (0.0-10.0); %Lymphocytes 19.8 % (21.0-51.0); %Monocytes 7.4 % (0.0-10.0); %Neutrophils 71.8 % (42.0-75.0); Anisocytosis SLIGHT = 6-15 cells (100X) (0-5/hpf); Large Platelets SLIGHT; MDiff Complete? YES; Mean Corpuscular Hemoglobin 27.5 pg (27.0-31.0); Mean Corpuscular Volume 88.8 fL (78.0-98.0); Mean Platelet Volume 10.6 fL (7.4-10.4); Platelet Count 158 thou/uL (130-400); Polychromasia SLIGHT = 2-3 cells (100X) (0-2/hpf); RBC Distribution Width 16.1 % (11.5-14.5); Red Blood Cell (RBC) Count 4.73 mill/uL (4.70-6.10); White Blood Cell (WBC) Count 5.9 thou/uL (4.8-10.8)
[2021-11-09] MEDS: Cefepime 2 GM in Sodium Chloride 0.9% 100 ML IVPB SCH ×3 (05:37→21:21)
[2021-11-09 06:05] LABS: INR-International Normal Ratio 5.4
[2021-11-09] MEDS: Atorvastatin Calcium 40 MG TAB PO SCH (07:48)
[2021-11-09] MEDS: Empagliflozin 10 MG TAB PO SCH (07:48)
[2021-11-09] MEDS: Carvedilol 3.125 MG TAB PO SCH ×2 (07:48→17:23)
[2021-11-09] MEDS: Dexamethasone 4 mg/ml Vial SLOW IVP SCH ×2 (07:48→21:23)
[2021-11-09] MEDS: Lisinopril 2.5 MG TAB PO SCH (07:48)
[2021-11-09] MEDS: metFORMIN 500 MG TAB PO SCH ×2 (07:49→17:45)
[2021-11-09] MEDS: Torsemide 10 MG TAB PO SCH (07:49)
[2021-11-09] MEDS: VANCOMYCIN 1.75 GM/500 ML BAG 1.75 GM in Premix Bag 1 BAG IVPB SCH ×2 (10:10→22:16)
[2021-11-09 22:19] LABS: Vancomycin, Trough 27.7 ug/mL
[2021-11-10 04:14] LABS: Prothrombin Time 44.4 sec (12.0-14.7)
[2021-11-10 04:26] LABS: INR-International Normal Ratio 4.6
[2021-11-10 04:31] LABS: ALT (SGPT) 134 U/L (8-55); AST (SGOT) 74 U/L (5-34); Albumin 3.5 g/dL (3.5-5.0); Alkaline Phosphatase 123 U/L (40-110); Anion Gap 16 mmol/L (10-20); BUN (Urea Nitrogen) 39 mg/dL (8.4-25.7); Bilirubin, Total 2.2 mg/dL (0.2-1.2); Calc. Creatinine Clearance 89 mL/min (70-130); Calcium 8.8 mg/dL (7.8-10.44); Carbon Dioxide 21 mmol/L (22-29); Chloride 100 mmol/L (98-107); Globulin 3.2 g/dL (2.4-3.5); Glucose 183 mg/dL (70-105); Potassium 4.7 mmol/L (3.5-5.1); Protein, Total 6.7 g/dL (6.0-8.3); Sodium 132 mmol/L (136-145)
[2021-11-10 05:05] LABS: Band 11 % (5-11); Hemoglobin 12.4 g/dL (14.0-18.0); Large Platelets SLIGHT; Lymphocytes 7 % (21-51); MDiff Complete? YES; Mean Corpuscular Hemoglobin 27.5 pg (27.0-31.0); Mean Corpuscular Volume 88.8 fL (78.0-98.0); Mean Platelet Volume 10.7 fL (7.4-10.4); Monocytes 5 % (0-10); Neutrophil 77 % (42-75); Nucleated RBC 1 % (0); Platelet Count 175 thou/uL (130-400); Platelet Morphology Comment Appears Adequate; RBC Distribution Width 16.3 % (11.5-14.5); Red Blood Cell (RBC) Count 4.52 mill/uL (4.70-6.10)
[2021-11-10] MEDS: Cefepime 2 GM in Sodium Chloride 0.9% 100 ML IVPB SCH (05:57)
[2021-11-10] MEDS: metFORMIN 500 MG TAB PO SCH ×2 (08:01→17:36)
[2021-11-10] MEDS: Empagliflozin 10 MG TAB PO SCH (08:01)
[2021-11-10] MEDS: Atorvastatin Calcium 40 MG TAB PO SCH (08:01)
[2021-11-10] MEDS: Lisinopril 2.5 MG TAB PO SCH (08:01)
[2021-11-10] MEDS: Carvedilol 3.125 MG TAB PO SCH (08:01)
[2021-11-10] MEDS: Dexamethasone 4 mg/ml Vial SLOW IVP SCH (08:01)
[2021-11-10] MEDS ORDERED: Carvedilol 3.125 MG TAB PO SCH ×2 (08:45→17:00)
[2021-11-10] MEDS ORDERED: Phytonadione 10 MG in Sodium Chloride 0.9% 50 ML IVPB SCH ×2 (09:45→10:15)
[2021-11-10] MEDS ORDERED: Nicotine 21 MG PATCH TD SCH (09:45)
[2021-11-10] MEDS ORDERED: Phytonadione 10 MG/ML AMP SLOW IVP SCH (09:45)
[2021-11-10] MEDS: Torsemide 10 MG TAB PO SCH (09:58)
[2021-11-10 15:32] LABS: Prothrombin Time 32.1 sec (12.0-14.7)
[2021-11-10 17:28] VITALS: BP 114/66; TEMP 97.6
[2021-11-10] MEDS ORDERED: Vancomycin 1.5 GRAM/300 ML BAG 1.5 GM in Premix Bag 1 BAG IVPB SCH (21:00)
[2021-11-11] MEDS ORDERED: Nicotine 21 MG PATCH TD SCH (09:00)
== END 2021-11-10 18:10 | disposition home or self-care (01) | DRG 177 ==
LOC: ERS 06:28 → ERHOLD 07:03 → 2NO 10:40
PROVIDERS: ADMIT Family Medicine; ATTEND Family Medicine
PROC: 8E0ZXY6 Isolation (ICD-10-PCS; principal; 2021-11-08)
DX: U07.1 COVID-19 (principal); J12.82 Pneumonia due to coronavirus disease 2019; I13.0 Hypertensive heart and chronic kidney disease with heart failure and stage 1 through stage 4 chronic kidney disease, or unspecified chronic kidney disease; R04.2 Hemoptysis; N17.9 Acute kidney failure, unspecified; I50.22 Chronic systolic (congestive) heart failure; E11.22 Type 2 diabetes mellitus with diabetic chronic kidney disease; F12.90 Cannabis use, unspecified, uncomplicated; R74.01 Elevation of levels of liver transaminase levels; I25.10 Atherosclerotic heart disease of native coronary artery without angina pectoris; F17.210 Nicotine dependence, cigarettes, uncomplicated; I48.91 Unspecified atrial fibrillation; N18.30 Chronic kidney disease, stage 3 unspecified; Z98.890 Other specified postprocedural states; Z79.01 Long term (current) use of anticoagulants; Z86.73 Personal history of transient ischemic attack (TIA), and cerebral infarction without residual deficits; Z95.1 Presence of aortocoronary bypass graft; Z79.82 Long term (current) use of aspirin; Z95.0 Presence of cardiac pacemaker; Z79.899 Other long term (current) drug therapy; Z79.84 Long term (current) use of oral hypoglycemic drugs; Z80.1 Family history of malignant neoplasm of trachea, bronchus and lung; Z80.0 Family history of malignant neoplasm of digestive organs; Z82.49 Family history of ischemic heart disease and other diseases of the circulatory system; Z71.6 Tobacco abuse counseling
CPT/HCPCS: 36415; 36416; 80053; 80202; 82728; 83605; 84145; 85025; 85610; 85652; 86140; 86480; 87070; 87205; 89220; 99284; J0692; J1100; J1956; J3370; J3430; J3490; J7030

== ENCOUNTER 2022-03-03 10:58 | Inpatient (IN) | payer MEDICARE ==
[2022-03-03 12:22] LABS: Hemoglobin 12.3 g/dL (14.0-18.0); Mean Corpuscular HGB CONC 29.8 g/dL (32.0-36.0); Mean Corpuscular Hemoglobin 24.4 pg (27.0-31.0); Mean Platelet Volume 11.6 fL (7.4-10.4); Platelet Count 152 thou/uL (130-400); RBC Distribution Width 19.4 % (11.5-14.5); Red Blood Cell (RBC) Count 5.02 mill/uL (4.70-6.10)
[2022-03-03 12:29] LABS: ALT (SGPT) 32 U/L (8-55); AST (SGOT) 27 U/L (5-34); Albumin 3.6 g/dL (3.5-5.0); Alkaline Phosphatase 130 U/L (40-110); Anion Gap 19 mmol/L (10-20); BUN (Urea Nitrogen) 42 mg/dL (8.4-25.7); Calc. Creatinine Clearance 0 mL/min (70-130); Calcium 8.9 mg/dL (7.8-10.44); Carbon Dioxide 20 mmol/L (22-29); Chloride 101 mmol/L (98-107); Estimated GFR 58; Glucose 146 mg/dL (70-105); Potassium 4.2 mmol/L (3.5-5.1); Protein, Total 6.6 g/dL (6.0-8.3); Sodium 136 mmol/L (136-145)
[2022-03-03 12:46] LABS: Anisocytosis SLIGHT = 6-15 cells (100X) (0-5/hpf); Band 6 % (5-11); Burr Cells SLIGHT = 2-5 cells (100X) (0-1/hpf); Elliptocytes SLIGHT = 2-5 cells (100X) (0-1/hpf); Lymphocytes 8 % (21-51); MDiff Complete? YES; Monocytes 6 % (0-10); Neutrophil 80 % (42-75); Nucleated RBC 1 % (0); Ovalocytes SLIGHT = 2-5 cells (100X) (0-1/hpf); Platelet Morphology Comment Appears Adequate; Poikilocytosis SLIGHT = 6-15 cells (100X) (0-5/hpf); Polychromasia MODERATE = 3-4 cells (100X) (0-2/hpf); Target Cells SLIGHT = 2-5 cells (100X) (0-1/hpf); White Blood Cell (WBC) Count 10.3 thou/uL (4.8-10.8)
[2022-03-03 12:50] LABS: CKMB 4.6 ng/mL (0-6.6)
[2022-03-03 13:20] LABS: INR-International Normal Ratio 2.1; PTT 37.7 sec (22.9-36.1); Prothrombin Time 24.4 sec (12.0-14.7)
[2022-03-03] MEDS ORDERED: Metoprolol Tartrate 5 MG/5 ML VIAL ONE (14:04)
[2022-03-03 14:23] LABS: Bilirubin Negative (Negative); Blood, Urine Negative (Negative); Clarity Clear (Clear); Glucose, Urine (Dipstick) Normal (Negative); Ketone, Urine Negative (Negative); Leukocyte Negative Leu/uL (Negative); Nitrite Negative (Negative); Protein, Urine (Dipstick) Negative (Neg-Trace); Specific Gravity, Urine 1.007 (1.002-1.036); Urobilinogen Normal mg/dL (Less than 2)
[2022-03-03] MEDS ORDERED: Ondansetron ODT 4 MG TAB PO PRN (14:48)
[2022-03-03] MEDS ORDERED: Ondansetron PF 4 MG/2 ML Vial IVP PRN (14:48)
[2022-03-03] MEDS ORDERED: Acetaminophen 325 MG TAB PO PRN (14:48)
[2022-03-03 15:38] LABS: Troponin I 0.025 ng/mL (< 0.028)
[2022-03-03 15:42] LABS: Magnesium 1.6 mg/dL (1.6-2.6)
[2022-03-03 19:13] LABS: Troponin I 0.028 ng/mL (< 0.028)
[2022-03-03 21:54] VITALS: BMI 30.9
[2022-03-03] MEDS ORDERED: Dextrose 50% Abboject 50 ML SYRINGE SLOW IVP PRN (22:12)
[2022-03-03] MEDS ORDERED: Dextrose 5% in Water 1,000 ML IV PRN (22:12)
[2022-03-03] MEDS ORDERED: HumaLOG 300 UNITS/3 ML VIAL SC PRN ×2 (22:12)
[2022-03-03] MEDS ORDERED: Carvedilol 3.125 MG TAB PO SCH (22:30)
[2022-03-03] MEDS ORDERED: Apixaban 5 MG TAB PO SCH (22:30)
[2022-03-03] MEDS: Nicotine 14 MG PATCH TD SCH (23:01)
[2022-03-04 04:38] LABS: Anion Gap 16 mmol/L (10-20); BUN (Urea Nitrogen) 38 mg/dL (8.4-25.7); Calc. Creatinine Clearance 100 mL/min (70-130); Calcium 9.1 mg/dL (7.8-10.44); Carbon Dioxide 24 mmol/L (22-29); Chloride 97 mmol/L (98-107); Estimated GFR 68; Glucose 110 mg/dL (70-105); Potassium 4.1 mmol/L (3.5-5.1); Sodium 133 mmol/L (136-145)
[2022-03-04 04:39] LABS: #Basophils 0.1 thou/uL (0.0-0.2); #Eosinphils 0.1 thou/uL (0.0-0.7); #Lymphocytes 2.8 thou/uL (1.20-3.40); #Monocytes 1.1 thou/uL (0.11-0.59); #Neutrophils 5.5 thou/uL (1.40-6.50); %Basophils 0.8 % (0.0-1.0); %Eosinophils 1.1 % (0.0-10.0); %Lymphocytes 28.8 % (21.0-51.0); %Monocytes 11.3 % (0.0-10.0); Hemoglobin 11.5 g/dL (14.0-18.0); Mean Corpuscular HGB CONC 29.8 g/dL (32.0-36.0); Mean Corpuscular Hemoglobin 24.3 pg (27.0-31.0); Mean Corpuscular Volume 81.8 fL (78.0-98.0); Mean Platelet Volume 11.9 fL (7.4-10.4); Platelet Count 146 thou/uL (130-400); RBC Distribution Width 19.5 % (11.5-14.5); Red Blood Cell (RBC) Count 4.74 mill/uL (4.70-6.10); White Blood Cell (WBC) Count 9.5 thou/uL (4.8-10.8)
[2022-03-04] MEDS: Atorvastatin Calcium 40 MG TAB PO SCH (08:25)
[2022-03-04] MEDS: Apixaban 5 MG TAB PO SCH ×2 (08:25→20:53)
[2022-03-04] MEDS: Carvedilol 3.125 MG TAB PO SCH ×2 (08:25→16:24)
[2022-03-04] MEDS: Empagliflozin 10 MG TAB PO SCH (08:26)
[2022-03-04] MEDS: Nicotine 14 MG PATCH TD SCH (16:23)
[2022-03-04] MEDS ORDERED: Furosemide 40 MG/4 ML VIAL SLOW IVP SCH (17:15)
[2022-03-04] MEDS: Melatonin 3 MG TAB PO PRN (20:53)
[2022-03-04] MEDS ORDERED: diphenhydrAMINE 12.5 MG/5 ML UDCUP PO SCH (21:00)
[2022-03-05 05:08] LABS: Phosphorus 3.6 mg/dL (2.3-4.7)
[2022-03-05 05:21] LABS: #Basophils 0.1 thou/uL (0.0-0.2); #Eosinphils 0.2 thou/uL (0.0-0.7); #Lymphocytes 2.3 thou/uL (1.20-3.40); #Neutrophils 6.7 thou/uL (1.40-6.50); %Basophils 0.8 % (0.0-1.0); %Eosinophils 1.5 % (0.0-10.0); %Lymphocytes 22.7 % (21.0-51.0); %Monocytes 9.3 % (0.0-10.0); %Neutrophils 65.8 % (42.0-75.0); Hemoglobin 12.3 g/dL (14.0-18.0); Mean Corpuscular Hemoglobin 24.5 pg (27.0-31.0); Mean Corpuscular Volume 81.6 fL (78.0-98.0); Mean Platelet Volume 11.8 fL (7.4-10.4); Platelet Count 163 thou/uL (130-400); RBC Distribution Width 19.5 % (11.5-14.5); Red Blood Cell (RBC) Count 5.03 mill/uL (4.70-6.10); White Blood Cell (WBC) Count 10.2 thou/uL (4.8-10.8)
[2022-03-05 05:43] LABS: Anion Gap 17 mmol/L (10-20); BUN (Urea Nitrogen) 41 mg/dL (8.4-25.7); Calc. Creatinine Clearance 92 mL/min (70-130); Carbon Dioxide 27 mmol/L (22-29); Chloride 92 mmol/L (98-107); Potassium 3.8 mmol/L (3.5-5.1); Sodium 132 mmol/L (136-145)
[2022-03-05 05:44] LABS: ALT (SGPT) 32 U/L (8-55); AST (SGOT) 28 U/L (5-34); Albumin 4.2 g/dL (3.5-5.0); Alkaline Phosphatase 158 U/L (40-110); Bilirubin, Total 3.1 mg/dL (0.2-1.2); Calcium 9.8 mg/dL (7.8-10.44); Estimated GFR 62; Globulin 3.7 g/dL (2.4-3.5); Glucose 138 mg/dL (70-105); Magnesium 1.8 mg/dL (1.6-2.6); Protein, Total 7.9 g/dL (6.0-8.3)
[2022-03-05] MEDS: Atorvastatin Calcium 40 MG TAB PO SCH (09:11)
[2022-03-05] MEDS: Empagliflozin 10 MG TAB PO SCH (09:11)
[2022-03-05] MEDS: Apixaban 5 MG TAB PO SCH ×2 (09:11→21:47)
[2022-03-05] MEDS: Carvedilol 6.25 MG TAB PO SCH ×2 (09:11→18:07)
[2022-03-05] MEDS ORDERED: Furosemide 40 MG/4 ML VIAL SLOW IVP SCH (12:45)
[2022-03-05] MEDS ORDERED: diphenhydrAMINE 12.5 MG/5 ML UDCUP PO SCH (13:30)
[2022-03-05] MEDS: Nicotine 14 MG PATCH TD SCH (13:49)
[2022-03-05] MEDS: Melatonin 3 MG TAB PO PRN (21:47)
[2022-03-05] MEDS ORDERED: diphenhydrAMINE 25 MG CAP PO SCH (23:59)
[2022-03-06 05:02] LABS: ALT (SGPT) 25 U/L (8-55); AST (SGOT) 24 U/L (5-34); Albumin 3.6 g/dL (3.5-5.0); Alkaline Phosphatase 145 U/L (40-110); Anion Gap 13 mmol/L (10-20); BUN (Urea Nitrogen) 34 mg/dL (8.4-25.7); Bilirubin, Total 2.8 mg/dL (0.2-1.2); Calc. Creatinine Clearance 102 mL/min (70-130); Calcium 9.5 mg/dL (7.8-10.44); Carbon Dioxide 31 mmol/L (22-29); Chloride 92 mmol/L (98-107); Estimated GFR 70; Globulin 3.3 g/dL (2.4-3.5); Glucose 169 mg/dL (70-105); Magnesium 1.9 mg/dL (1.6-2.6); Potassium 3.4 mmol/L (3.5-5.1); Protein, Total 6.9 g/dL (6.0-8.3); Sodium 133 mmol/L (136-145)
[2022-03-06 07:57] LABS: #Basophils 0.1 thou/uL (0.0-0.2); #Eosinphils 0.2 thou/uL (0.0-0.7); #Lymphocytes 1.7 thou/uL (1.20-3.40); #Monocytes 0.8 thou/uL (0.11-0.59); #Neutrophils 4.8 thou/uL (1.40-6.50); %Basophils 0.8 % (0.0-1.0); %Lymphocytes 22.8 % (21.0-51.0); %Monocytes 10.4 % (0.0-10.0); Hemoglobin 12.9 g/dL (14.0-18.0); Mean Corpuscular HGB CONC 31.1 g/dL (32.0-36.0); Mean Corpuscular Hemoglobin 25.1 pg (27.0-31.0); Mean Corpuscular Volume 80.7 fL (78.0-98.0); Mean Platelet Volume 12.2 fL (7.4-10.4); Platelet Count 130 thou/uL (130-400); RBC Distribution Width 19.3 % (11.5-14.5); Red Blood Cell (RBC) Count 5.15 mill/uL (4.70-6.10); White Blood Cell (WBC) Count 7.5 thou/uL (4.8-10.8)
[2022-03-06] MEDS ORDERED: Potassium Chloride 20 MEQ TAB PO SCH ×2 (08:00→13:00)
[2022-03-06] MEDS ORDERED: Aspirin Chewable 81 MG TAB PO SCH (09:00)
[2022-03-06] MEDS ORDERED: Furosemide 40 MG/4 ML VIAL SLOW IVP SCH (09:00)
[2022-03-06] MEDS: Carvedilol 6.25 MG TAB PO SCH (09:14)
[2022-03-06] MEDS: Atorvastatin Calcium 40 MG TAB PO SCH (09:15)
[2022-03-06] MEDS: Apixaban 5 MG TAB PO SCH (09:15)
[2022-03-06] MEDS: Empagliflozin 10 MG TAB PO SCH (09:15)
[2022-03-06 12:26] VITALS: BP 123/77; TEMP 95.3
[2022-03-06] MEDS ORDERED: diphenhydrAMINE 25 MG CAP PO SCH (21:00)
== END 2022-03-06 14:08 | disposition home or self-care (01) | DRG 291 ==
LOC: ERS 10:58 → ERHOLD 14:23 → 2NO 19:27
PROVIDERS: ADMIT Internal Medicine; ATTEND Internal Medicine
PROC: 4B02XTZ Measurement of Cardiac Defibrillator, External Approach (ICD-10-PCS; principal; 2022-03-03)
DX: I13.0 Hypertensive heart and chronic kidney disease with heart failure and stage 1 through stage 4 chronic kidney disease, or unspecified chronic kidney disease (principal); I50.23 Acute on chronic systolic (congestive) heart failure; I48.19 Other persistent atrial fibrillation; E87.1 Hypo-osmolality and hyponatremia; I47.20 Ventricular tachycardia, unspecified; Z20.822 Contact with and (suspected) exposure to COVID-19; I25.10 Atherosclerotic heart disease of native coronary artery without angina pectoris; N18.30 Chronic kidney disease, stage 3 unspecified; E11.51 Type 2 diabetes mellitus with diabetic peripheral angiopathy without gangrene; F17.210 Nicotine dependence, cigarettes, uncomplicated; I25.5 Ischemic cardiomyopathy; I08.1 Rheumatic disorders of both mitral and tricuspid valves; Z95.810 Presence of automatic (implantable) cardiac defibrillator; Z95.1 Presence of aortocoronary bypass graft; Z86.73 Personal history of transient ischemic attack (TIA), and cerebral infarction without residual deficits; Z86.16 Personal history of COVID-19; Z87.01 Personal history of pneumonia (recurrent); Z86.711 Personal history of pulmonary embolism; Z71.6 Tobacco abuse counseling; Z90.49 Acquired absence of other specified parts of digestive tract; Z79.899 Other long term (current) drug therapy; Z79.01 Long term (current) use of anticoagulants; Z79.84 Long term (current) use of oral hypoglycemic drugs; Z79.82 Long term (current) use of aspirin
CPT/HCPCS: 36415; 36416; 71045; 80048; 80053; 81003; 82533; 82553; 83735; 83880; 84100; 84145; 84443; 84484; 85025; 85610; 85730; 93005; 93923; 93970; 96374; J1815; J1940; Q0163; U0003; U0005

== ENCOUNTER 2022-07-20 19:33 | Inpatient (IN) | payer MEDICARE ==
[2022-07-20] MEDS ORDERED: Acetaminophen 325 MG TAB PO PRN (21:22)
[2022-07-20] MEDS ORDERED: Ondansetron ODT 4 MG TAB PO PRN (21:22)
[2022-07-20] MEDS ORDERED: Dextrose 50% Abboject 50 ML SYRINGE SLOW IVP PRN (21:22)
[2022-07-20] MEDS ORDERED: Acetaminophen 650 MG Suppository PR PRN (21:22)
[2022-07-20] MEDS ORDERED: HumaLOG 300 UNITS/3 ML VIAL SC PRN ×2 (21:22)
[2022-07-20] MEDS ORDERED: Ondansetron PF 4 MG/2 ML Vial IVP PRN (21:22)
[2022-07-20] MEDS ORDERED: Dextrose 5% in Water 1,000 ML IV PRN (21:22)
[2022-07-20] MEDS ORDERED: Electrolyte Replacement Protocol 1 EACH FS SCH (21:30)
[2022-07-20] MEDS ORDERED: Furosemide 40 MG/4 ML VIAL SLOW IVP SCH (21:45)
[2022-07-20] MEDS ORDERED: Apixaban 5 MG TAB PO SCH (22:15)
[2022-07-20 22:16] LABS: Lactic Acid 2.6 mmol/L (0.5-2.2)
[2022-07-20 22:22] LABS: Anion Gap 20 mmol/L (10-20); BUN (Urea Nitrogen) 30 mg/dL (8.4-25.7); Calc. Creatinine Clearance 91 mL/min (70-130); Calcium 9.4 mg/dL (7.8-10.44); Carbon Dioxide 26 mmol/L (22-29); Chloride 89 mmol/L (98-107); Estimated GFR 70; Glucose 122 mg/dL (70-105); Magnesium 2.2 mg/dL (1.6-2.6); Potassium 3.4 mmol/L (3.5-5.1); Sodium 132 mmol/L (136-145)
[2022-07-20] MEDS ORDERED: Carvedilol 6.25 MG TAB PO SCH (23:30)
[2022-07-21] MEDS: Melatonin 3 MG TAB PO PRN ×2 (00:21→20:15)
[2022-07-21] MEDS: traZODone HCl 50 MG TAB PO PRN ×2 (01:16→22:44)
[2022-07-21 04:53] LABS: #Eosinphils 0.2 thou/uL (0.0-0.7); #Lymphocytes 1.4 thou/uL (1.20-3.40); #Monocytes 1.1 thou/uL (0.11-0.59); #Neutrophils 5.3 thou/uL (1.40-6.50); %Basophils 0.4 % (0.0-1.0); %Lymphocytes 17.9 % (21.0-51.0); %Neutrophils 65.7 % (42.0-75.0); Hemoglobin 12.6 g/dL (14.0-18.0); Mean Corpuscular HGB CONC 31.4 g/dL (32.0-36.0); Mean Corpuscular Hemoglobin 24.3 pg (27.0-31.0); Mean Corpuscular Volume 77.4 fl (78.0-98.0); Mean Platelet Volume 11.1 fL (7.4-10.4); Platelet Count 198 10x3/uL (130-400); RBC Distribution Width 18.2 % (11.5-14.5); Red Blood Cell (RBC) Count 5.19 mill/uL (4.70-6.10); White Blood Cell (WBC) Count 8.1 10x3/uL (4.8-10.8)
[2022-07-21 05:23] LABS: Anion Gap 17 mmol/L (10-20); BUN (Urea Nitrogen) 33 mg/dL (8.4-25.7); Calc. Creatinine Clearance 91 mL/min (70-130); Calcium 9.2 mg/dL (7.8-10.44); Carbon Dioxide 27 mmol/L (22-29); Chloride 91 mmol/L (98-107); Estimated GFR 71; Glucose 132 mg/dL (70-105); Potassium 3.4 mmol/L (3.5-5.1); Sodium 132 mmol/L (136-145)
[2022-07-21 07:27] LABS: ALT (SGPT) 12 U/L (8-55); AST (SGOT) 27 U/L (5-34); Albumin 3.7 g/dL (3.5-5.0); Alkaline Phosphatase 134 U/L (40-110); Bilirubin, Direct 2.7 mg/dL (0.1-0.3); Bilirubin, Total 4.3 mg/dL (0.2-1.2)
[2022-07-21] MEDS ORDERED: Carvedilol 6.25 MG TAB PO SCH ×2 (08:00→10:00)
[2022-07-21] MEDS ORDERED: Magnesium 2 GM/50 ML(in water) 2 GM in Premix Bag 1 BAG IVPB SCH (08:00)
[2022-07-21] MEDS ORDERED: Potassium Chloride 20 MEQ TAB PO SCH (08:00)
[2022-07-21] MEDS ORDERED: ALPRAZolam 0.25 MG TAB PO PRN (08:18)
[2022-07-21] MEDS: Aspirin Chewable 81 MG TAB PO SCH (10:15)
[2022-07-21] MEDS: Apixaban 5 MG TAB PO SCH ×2 (10:15→20:15)
[2022-07-21] MEDS: Furosemide 40 MG/4 ML VIAL SLOW IVP SCH (10:16)
[2022-07-21 10:36] VITALS: BMI 27.2
[2022-07-21 11:12] LABS: HBSAg Index 0.32 S/CO (0-0.99); Hep A IgM AB Non-Reactive (NonReactive); Hep B Surf Ag Non-Reactive S/CO (NonReactive); Hep C IgG Ab Non-Reactive (NonReactive); Hep C Index 0.19 S/CO (0-0.79); Hepatitis B Core IgM Abs Non-Reactive (NonReactive)
[2022-07-21] MEDS: ALPRAZolam 0.25 MG TAB PO PRN (15:48)
[2022-07-21] MEDS: Carvedilol 6.25 MG TAB PO SCH (16:38)
[2022-07-21] MEDS ORDERED: Atorvastatin Calcium 10 MG TAB PO SCH (21:00)
[2022-07-21] MEDS ORDERED: Pravastatin Sodium 40 MG TAB PO SCH (21:00)
[2022-07-21] MEDS ORDERED: GUAIFENESIN SF SOLN 200 MG/10 ML UDCUP PO PRN (21:59)
[2022-07-21] MEDS ORDERED: Benzonatate 100 MG CAP PO PRN (21:59)
[2022-07-22 05:42] LABS: #Basophils 0.1 thou/uL (0.0-0.2); #Eosinphils 0.3 thou/uL (0.0-0.7); #Lymphocytes 1.6 thou/uL (1.20-3.40); #Monocytes 1.1 thou/uL (0.11-0.59); #Neutrophils 5.3 thou/uL (1.40-6.50); %Basophils 1.1 % (0.0-1.0); %Eosinophils 3.7 % (0.0-10.0); %Lymphocytes 18.6 % (21.0-51.0); %Monocytes 13.5 % (0.0-10.0); %Neutrophils 63.1 % (42.0-75.0); Hemoglobin 12.4 g/dL (14.0-18.0); Mean Corpuscular HGB CONC 30.7 g/dL (32.0-36.0); Mean Corpuscular Hemoglobin 24.2 pg (27.0-31.0); Mean Corpuscular Volume 78.7 fl (78.0-98.0); Mean Platelet Volume 10.9 fL (7.4-10.4); Platelet Count 182 10x3/uL (130-400); RBC Distribution Width 18.5 % (11.5-14.5); Red Blood Cell (RBC) Count 5.13 mill/uL (4.70-6.10); White Blood Cell (WBC) Count 8.4 10x3/uL (4.8-10.8)
[2022-07-22 06:06] LABS: ALT (SGPT) 13 U/L (8-55); AST (SGOT) 27 U/L (5-34); Albumin 3.6 g/dL (3.5-5.0); Alkaline Phosphatase 130 U/L (40-110); Anion Gap 18 mmol/L (10-20); BUN (Urea Nitrogen) 37 mg/dL (8.4-25.7); Calc. Creatinine Clearance 77 mL/min (70-130); Calcium 9.6 mg/dL (7.8-10.44); Carbon Dioxide 32 mmol/L (22-29); Chloride 90 mmol/L (98-107); Estimated GFR 57; Globulin 3.6 g/dL (2.4-3.5); Glucose 126 mg/dL (70-105); Potassium 3.7 mmol/L (3.5-5.1); Protein, Total 7.2 g/dL (6.0-8.3); Sodium 136 mmol/L (136-145)
[2022-07-22] MEDS ORDERED: Furosemide 20 MG TAB PO SCH (10:00)
[2022-07-22] MEDS: Aspirin Chewable 81 MG TAB PO SCH (10:16)
[2022-07-22] MEDS: Apixaban 5 MG TAB PO SCH (10:16)
[2022-07-22] MEDS: Carvedilol 6.25 MG TAB PO SCH ×2 (10:16→17:50)
[2022-07-22] MEDS: ALPRAZolam 0.25 MG TAB PO PRN ×2 (10:19→17:47)
[2022-07-22] MEDS: Furosemide 40 MG/4 ML VIAL SLOW IVP SCH (12:31)
[2022-07-22 14:13] LABS: EBV VCA IgM <36.0 U/mL (0.0-35.9)
[2022-07-22 16:23] VITALS: BP 96/65; TEMP 98.2
[2022-07-22] MEDS ORDERED: Carvedilol 3.125 MG TAB PO SCH (17:30)
[2022-07-23] MEDS ORDERED: Furosemide 40 MG TAB PO SCH (07:30)
[2022-07-23] MEDS ORDERED: Furosemide 20 MG TAB PO SCH (07:30)
[2022-07-23] MEDS ORDERED: Carvedilol 3.125 MG TAB PO SCH (08:00)
[2022-07-23 16:01] LABS: EliA Vaculitis New Method **** NEW METHOD ****; Mitochondrial Ab 1.5 U/mL (<4 Negative)
[2022-07-24 09:13] LABS: CMV DNA-PCR Test Negative (Negative)
== END 2022-07-22 18:35 | disposition home or self-care (01) | DRG 291 ==
LOC: 2SW 20:45 → OBSVTOIN 07-21 14:46
PROVIDERS: ADMIT Family Medicine; ATTEND Family Medicine
DX: I13.0 Hypertensive heart and chronic kidney disease with heart failure and stage 1 through stage 4 chronic kidney disease, or unspecified chronic kidney disease (principal); I50.23 Acute on chronic systolic (congestive) heart failure; E87.1 Hypo-osmolality and hyponatremia; R18.8 Other ascites; I42.0 Dilated cardiomyopathy; Z20.822 Contact with and (suspected) exposure to COVID-19; I25.5 Ischemic cardiomyopathy; I25.10 Atherosclerotic heart disease of native coronary artery without angina pectoris; I48.0 Paroxysmal atrial fibrillation; N18.30 Chronic kidney disease, stage 3 unspecified; K76.1 Chronic passive congestion of liver; E11.22 Type 2 diabetes mellitus with diabetic chronic kidney disease; F17.210 Nicotine dependence, cigarettes, uncomplicated; E80.6 Other disorders of bilirubin metabolism; E87.6 Hypokalemia; I71.40 Abdominal aortic aneurysm, without rupture, unspecified; F41.9 Anxiety disorder, unspecified; I51.3 Intracardiac thrombosis, not elsewhere classified; Z86.711 Personal history of pulmonary embolism; Z95.1 Presence of aortocoronary bypass graft; Z95.810 Presence of automatic (implantable) cardiac defibrillator; I69.312 Visuospatial deficit and spatial neglect following cerebral infarction; Z79.899 Other long term (current) drug therapy; Z79.82 Long term (current) use of aspirin; Z79.01 Long term (current) use of anticoagulants; Z79.84 Long term (current) use of oral hypoglycemic drugs; Z90.49 Acquired absence of other specified parts of digestive tract; Z98.890 Other specified postprocedural states; Z86.16 Personal history of COVID-19; Z87.01 Personal history of pneumonia (recurrent)
CPT/HCPCS: 36415; 36416; 76705; 80048; 80053; 80074; 80076; 83516; 83605; 83735; 85025; 86664; 86665; 87497; 93306; 96374; 96375; 96376; 97139; G0378; J1940; J3475; U0003; U0005

== ENCOUNTER 2022-08-12 16:10 | Inpatient (IN) | payer MEDICARE ==
[2022-08-12] MEDS ORDERED: Furosemide 40 MG/4 ML VIAL ONE (16:28)
[2022-08-12 16:45] LABS: #Eosinphils 0.1 thou/uL (0.0-0.7); #Lymphocytes 1.6 thou/uL (1.20-3.40); #Monocytes 1.1 thou/uL (0.11-0.59); #Neutrophils 6.9 thou/uL (1.40-6.50); %Basophils 0.4 % (0.0-1.0); %Eosinophils 1.5 % (0.0-10.0); %Lymphocytes 16.6 % (21.0-51.0); %Neutrophils 70.5 % (42.0-75.0); Actual Bicarbonate (HCO3v) 25 mEq/L (22-28); Base Excess -0.3 mEq/L (-2.0 to +3.0); Calcium, Ionized (venous) 1.04 mmol/L (1.16-1.32); Chloride (VBG) 93 mmol/L (98-106); Hemoglobin 12.6 g/dL (14.0-18.0); Hemoglobin (Hb) 13.1 g/dL (13.1-17.2); Mean Corpuscular HGB CONC 31.3 g/dL (32.0-36.0); Mean Corpuscular Hemoglobin 24.1 pg (27.0-31.0); Mean Corpuscular Volume 76.9 fl (78.0-98.0); Mean Platelet Volume 11.4 fL (7.4-10.4); Platelet Count 183 10x3/uL (130-400); Potassium (VBG) 3.18 mmol/L (3.70-5.30); RBC Distribution Width 19.2 % (11.5-14.5); Red Blood Cell (RBC) Count 5.22 mill/uL (4.70-6.10); Sodium 130.1 mmol/L (133-146); White Blood Cell (WBC) Count 9.8 10x3/uL (4.8-10.8); pH (venous) 7.37 (7.32-7.43)
[2022-08-12 16:58] LABS: Actual Bicarbonate (HCO3a) 23.8 mEq/L (22-28); Analyzer IN Cardio ER; Base Excess (BEa) 0.6 mEq/L (-2.0 to +3.0); CO2 Tension 33.7 mmHg (35.0-45.0); Carboxyhemoglobin (COHb) 1.5 gm% (0.0-3.0); Potassium - ABG Lab 2.85 mmol/L (3.70-5.30); pH, Arterial 7.47 (7.35-7.45)
[2022-08-12 17:05] LABS: ALT (SGPT) 53 U/L (8-55); AST (SGOT) 90 U/L (5-34); Albumin 3.5 g/dL (3.5-5.0); Alkaline Phosphatase 104 U/L (40-110); Anion Gap 17 mmol/L (10-20); BUN (Urea Nitrogen) 64 mg/dL (8.4-25.7); Bilirubin, Total 4.2 mg/dL (0.2-1.2); CK (CPK) 179 U/L (30-200); Calc. Creatinine Clearance 0 mL/min (70-130); Calcium 9.2 mg/dL (7.8-10.44); Carbon Dioxide 24 mmol/L (22-29); Chloride 94 mmol/L (98-107); Estimated GFR 39; Glucose 129 mg/dL (70-105); Potassium 3.2 mmol/L (3.5-5.1); Protein, Total 6.5 g/dL (6.0-8.3); Sodium 132 mmol/L (136-145)
[2022-08-12 17:06] LABS: ALV-art Gradient 98.375 mmHg (0-20); Puncture Site RRA
[2022-08-12] MEDS ORDERED: cefTRIAXone (ROCEPHIN) 1 GM VIAL ONE (17:22)
[2022-08-12 17:27] LABS: CKMB 12.1 ng/mL (0-6.6)
[2022-08-12] MEDS ORDERED: Azithromycin 500 MG VIAL ONE (18:28)
[2022-08-12 19:46] LABS: Bilirubin Negative (Negative); Blood, Urine Negative (Negative); Clarity Clear (Clear); Glucose, Urine (Dipstick) Normal (Negative); Ketone, Urine Negative (Negative); Leukocyte Negative Leu/uL (Negative); Nitrite Negative (Negative); Protein, Urine (Dipstick) Negative (Neg-Trace); Specific Gravity, Urine 1.008 (1.002-1.036); Urobilinogen Normal mg/dL (Less than 2)
[2022-08-12] MEDS ORDERED: Furosemide 40 MG/4 ML VIAL SLOW IVP SCH (21:00)
[2022-08-12] MEDS ORDERED: Potassium Chloride 20 MEQ TAB PO SCH (21:00)
[2022-08-12 21:03] LABS: Lactic Acid 2.3 mmol/L (0.5-2.2)
[2022-08-12] MEDS: Apixaban 5 MG TAB PO SCH (21:05)
[2022-08-12] MEDS: ALPRAZolam 0.25 MG TAB PO PRN (21:10)
[2022-08-12 21:11] LABS: Troponin I 0.105 ng/mL (< 0.028)
[2022-08-12 21:30] VITALS: BMI 31.2
[2022-08-12] MEDS: DOBUTamine 500 mg/250 ml 250 ML IVPB SCH (21:41)
[2022-08-12 23:44] LABS: Troponin I 0.081 ng/mL (< 0.028)
[2022-08-13 04:18] LABS: Hemoglobin 11.5 g/dL (14.0-18.0); Mean Corpuscular HGB CONC 32.1 g/dL (32.0-36.0); Mean Corpuscular Hemoglobin 24.3 pg (27.0-31.0); Mean Corpuscular Volume 75.8 fl (78.0-98.0); RBC Distribution Width 18.5 % (11.5-14.5); Red Blood Cell (RBC) Count 4.73 mill/uL (4.70-6.10); White Blood Cell (WBC) Count 7.5 10x3/uL (4.8-10.8)
[2022-08-13 04:21] LABS: Lactic Acid 1.2 mmol/L (0.5-2.2)
[2022-08-13 04:23] LABS: Prothrombin Time 23.4 sec (12.0-14.7)
[2022-08-13 04:24] LABS: PTT 36.5 sec (22.9-36.1)
[2022-08-13 04:27] LABS: ALT (SGPT) 46 U/L (8-55); AST (SGOT) 70 U/L (5-34); Alkaline Phosphatase 101 U/L (40-110); Anion Gap 14 mmol/L (10-20); BUN (Urea Nitrogen) 59 mg/dL (8.4-25.7); Bilirubin, Total 3.5 mg/dL (0.2-1.2); Calc. Creatinine Clearance 65 mL/min (70-130); Calcium 9.1 mg/dL (7.8-10.44); Carbon Dioxide 30 mmol/L (22-29); Chloride 94 mmol/L (98-107); Estimated GFR 39; Glucose 132 mg/dL (70-105); Sodium 135 mmol/L (136-145)
[2022-08-13 04:32] LABS: Potassium 2.6 mmol/L (3.5-5.1)
[2022-08-13 04:54] LABS: #Eosinphils 0.3 thou/uL (0.0-0.7); #Lymphocytes 1.1 thou/uL (1.20-3.40); #Monocytes 0.9 thou/uL (0.11-0.59); #Neutrophils 5.2 thou/uL (1.40-6.50); %Eosinophils 3.8 % (0.0-10.0); %Lymphocytes 14.3 % (21.0-51.0); %Monocytes 12.3 % (0.0-10.0); %Neutrophils 69.6 % (42.0-75.0); Hypochromia SLIGHT = 6-15 cells (100X) (0-5/hpf); MDiff Complete? YES; Mean Platelet Volume 11.6 fL (7.4-10.4); Platelet Count 114 10x3/uL (130-400); Platelet Morphology Comment Appears Decreased
[2022-08-13] MEDS ORDERED: Potassium Chloride 20 MEQ TAB PO SCH (05:00)
[2022-08-13] MEDS: Furosemide 40 MG/4 ML VIAL SLOW IVP SCH ×2 (05:04→13:38)
[2022-08-13 08:06] LABS: Magnesium 2.3 mg/dL (1.6-2.6)
[2022-08-13] MEDS ORDERED: Famotidine/PF 20 mg/2ml Vial SLOW IVP SCH ×2 (09:00→09:18)
[2022-08-13] MEDS: Potassium Bicarbonate/Cit Ac 20 MEQ TAB PO SCH ×3 (09:00→13:33)
[2022-08-13] MEDS: Apixaban 5 MG TAB PO SCH ×2 (09:01→20:46)
[2022-08-13] MEDS: Aspirin 81 mg Enteric Coated Tablet PO SCH (09:01)
[2022-08-13] MEDS ORDERED: Dextrose 5% in Water 1,000 ML IV PRN (09:12)
[2022-08-13] MEDS ORDERED: Dextrose 50% Abboject 50 ML SYRINGE SLOW IVP PRN (09:12)
[2022-08-13] MEDS ORDERED: HumaLOG 300 UNITS/3 ML VIAL SC PRN ×2 (09:12)
[2022-08-13 16:09] LABS: Anion Gap 16 mmol/L (10-20); BUN (Urea Nitrogen) 53 mg/dL (8.4-25.7); Calc. Creatinine Clearance 70 mL/min (70-130); Calcium 9.3 mg/dL (7.8-10.44); Carbon Dioxide 31 mmol/L (22-29); Chloride 93 mmol/L (98-107); Estimated GFR 43; Glucose 115 mg/dL (70-105); Potassium 3.5 mmol/L (3.5-5.1); Sodium 136 mmol/L (136-145)
[2022-08-13] MEDS: cefTRIAXone\\ROCEPHIN 1 GM in Sodium Chloride 0.9% 100 ML IVPB SCH (18:26)
[2022-08-13] MEDS: Azithromycin 500 MG in Sodium Chloride 0.9% 250 ML 250 ML IVPB SCH (18:41)
[2022-08-13] MEDS: Famotidine/PF 20 mg/2ml Vial SLOW IVP SCH (20:46)
[2022-08-14 03:55] LABS: #Eosinphils 0.2 thou/uL (0.0-0.7); #Monocytes 0.7 thou/uL (0.11-0.59); #Neutrophils 5.6 thou/uL (1.40-6.50); %Basophils 0.4 % (0.0-1.0); %Eosinophils 2.1 % (0.0-10.0); %Lymphocytes 12.9 % (21.0-51.0); %Monocytes 9.5 % (0.0-10.0); %Neutrophils 75.1 % (42.0-75.0); Hemoglobin 11.4 g/dL (14.0-18.0); Mean Corpuscular HGB CONC 30.8 g/dL (32.0-36.0); Mean Corpuscular Hemoglobin 23.9 pg (27.0-31.0); Mean Corpuscular Volume 77.4 fl (78.0-98.0); Mean Platelet Volume 11.8 fL (7.4-10.4); Platelet Count 120 10x3/uL (130-400); RBC Distribution Width 18.8 % (11.5-14.5); Red Blood Cell (RBC) Count 4.79 mill/uL (4.70-6.10); White Blood Cell (WBC) Count 7.4 10x3/uL (4.8-10.8)
[2022-08-14 04:37] LABS: Anion Gap 16 mmol/L (10-20); BUN (Urea Nitrogen) 47 mg/dL (8.4-25.7); Calc. Creatinine Clearance 85 mL/min (70-130); Calcium 9.1 mg/dL (7.8-10.44); Carbon Dioxide 30 mmol/L (22-29); Chloride 93 mmol/L (98-107); Estimated GFR 54; Glucose 134 mg/dL (70-105); Sodium 136 mmol/L (136-145)
[2022-08-14] MEDS: Furosemide 40 MG/4 ML VIAL SLOW IVP SCH ×2 (05:05→13:43)
[2022-08-14] MEDS: Aspirin 81 mg Enteric Coated Tablet PO SCH (09:02)
[2022-08-14] MEDS: ALPRAZolam 0.25 MG TAB PO PRN ×2 (09:02→18:31)
[2022-08-14] MEDS: Apixaban 5 MG TAB PO SCH ×2 (09:02→19:41)
[2022-08-14] MEDS: Famotidine/PF 20 mg/2ml Vial SLOW IVP SCH ×2 (09:02→19:41)
[2022-08-14] MEDS: Potassium Bicarbonate/Cit Ac 20 MEQ TAB PO SCH (09:02)
[2022-08-14] MEDS ORDERED: Potassium Bicarbonate/Cit Ac 20 MEQ TAB PO SCH (11:00)
[2022-08-14] MEDS: cefTRIAXone\\ROCEPHIN 1 GM in Sodium Chloride 0.9% 100 ML IVPB SCH (16:14)
[2022-08-14] MEDS: Azithromycin 500 MG in Sodium Chloride 0.9% 250 ML 250 ML IVPB SCH (17:35)
[2022-08-14] MEDS: Nicotine 7 MG PATCH TD SCH (19:41)
[2022-08-15] MEDS: DOBUTamine 500 mg/250 ml 250 ML IVPB SCH ×2 (00:09→17:36)
[2022-08-15 04:19] LABS: #Eosinphils 0.2 thou/uL (0.0-0.7); #Monocytes 0.9 thou/uL (0.11-0.59); #Neutrophils 5.1 thou/uL (1.40-6.50); %Basophils 0.4 % (0.0-1.0); %Eosinophils 2.7 % (0.0-10.0); %Lymphocytes 13.8 % (21.0-51.0); %Monocytes 12.7 % (0.0-10.0); %Neutrophils 70.4 % (42.0-75.0); Hemoglobin 11.3 g/dL (14.0-18.0); Mean Corpuscular HGB CONC 30.8 g/dL (32.0-36.0); Mean Corpuscular Hemoglobin 23.7 pg (27.0-31.0); Mean Platelet Volume 11.8 fL (7.4-10.4); Platelet Count 101 10x3/uL (130-400); RBC Distribution Width 18.7 % (11.5-14.5); Red Blood Cell (RBC) Count 4.77 mill/uL (4.70-6.10); White Blood Cell (WBC) Count 7.3 10x3/uL (4.8-10.8)
[2022-08-15 04:34] LABS: BUN (Urea Nitrogen) 35 mg/dL (8.4-25.7); Calc. Creatinine Clearance 103 mL/min (70-130); Calcium 9.1 mg/dL (7.8-10.44); Estimated GFR 68; Glucose 105 mg/dL (70-105)
[2022-08-15 04:43] LABS: Anion Gap 20 mmol/L (10-20); Carbon Dioxide 35 mmol/L (22-29); Chloride 86 mmol/L (98-107); Potassium 2.7 mmol/L (3.5-5.1); Sodium 138 mmol/L (136-145)
[2022-08-15] MEDS ORDERED: Electrolyte Replacement Protocol 1 EACH FS SCH (05:00)
[2022-08-15] MEDS: Potassium Bicarbonate/Cit Ac 20 MEQ TAB PO SCH ×3 (05:58→10:00)
[2022-08-15] MEDS: Furosemide 40 MG/4 ML VIAL SLOW IVP SCH ×2 (05:58→16:39)
[2022-08-15] MEDS: ALPRAZolam 0.25 MG TAB PO PRN ×3 (06:00→21:41)
[2022-08-15] MEDS ORDERED: Electrolyte Replacement Protocol FS PRN (06:00)
[2022-08-15] MEDS ORDERED: Magnesium 2 GM/50 ML(in water) 2 GM in Premix Bag 1 BAG IVPB SCH (08:00)
[2022-08-15] MEDS ORDERED: Potassium Bicarbonate/Cit Ac 20 MEQ TAB PO SCH (08:15)
[2022-08-15] MEDS: Famotidine/PF 20 mg/2ml Vial SLOW IVP SCH ×2 (08:28→21:41)
[2022-08-15] MEDS: Aspirin 81 mg Enteric Coated Tablet PO SCH (08:28)
[2022-08-15] MEDS: Apixaban 5 MG TAB PO SCH ×2 (08:29→21:41)
[2022-08-15] MEDS: cefTRIAXone\\ROCEPHIN 1 GM in Sodium Chloride 0.9% 100 ML IVPB SCH (16:40)
[2022-08-15] MEDS: Azithromycin 500 MG in Sodium Chloride 0.9% 250 ML 250 ML IVPB SCH (17:36)
[2022-08-15] MEDS: Nicotine 7 MG PATCH TD SCH (18:46)
[2022-08-16] MEDS: DOBUTamine 500 mg/250 ml 250 ML IVPB SCH ×2 (04:00→18:38)
[2022-08-16] MEDS: ALPRAZolam 0.25 MG TAB PO PRN ×2 (05:43→21:17)
[2022-08-16] MEDS: Furosemide 40 MG/4 ML VIAL SLOW IVP SCH ×2 (05:43→15:08)
[2022-08-16 08:00] LABS: BUN (Urea Nitrogen) 31 mg/dL (8.4-25.7); Calc. Creatinine Clearance 112 mL/min (70-130); Calcium 9.1 mg/dL (7.8-10.44); Estimated GFR 76; Glucose 154 mg/dL (70-105)
[2022-08-16 08:06] LABS: #Eosinphils 0.2 thou/uL (0.0-0.7); #Monocytes 0.8 thou/uL (0.11-0.59); #Neutrophils 5.4 thou/uL (1.40-6.50); %Basophils 0.5 % (0.0-1.0); %Eosinophils 2.3 % (0.0-10.0); %Lymphocytes 13.1 % (21.0-51.0); %Monocytes 11.3 % (0.0-10.0); %Neutrophils 72.8 % (42.0-75.0); Hemoglobin 11.8 g/dL (14.0-18.0); Mean Corpuscular HGB CONC 29.2 g/dL (32.0-36.0); Mean Corpuscular Hemoglobin 23.1 pg (27.0-31.0); Mean Platelet Volume 11.6 fL (7.4-10.4); Platelet Count 113 10x3/uL (130-400); Red Blood Cell (RBC) Count 5.12 mill/uL (4.70-6.10); White Blood Cell (WBC) Count 7.4 10x3/uL (4.8-10.8)
[2022-08-16 08:10] LABS: Anion Gap 20 mmol/L (10-20); Carbon Dioxide 36 mmol/L (22-29); Chloride 82 mmol/L (98-107); Potassium 2.8 mmol/L (3.5-5.1); Sodium 135 mmol/L (136-145)
[2022-08-16] MEDS ORDERED: Magnesium 2 GM/50 ML(in water) 2 GM in Premix Bag 1 BAG IVPB SCH (08:30)
[2022-08-16 08:35] LABS: Hypochromia MODERATE=16-30 cells (100X) (0-5/hpf); MDiff Complete? YES; Platelet Morphology Comment Appears Decreased; Polychromasia SLIGHT = 2-3 cells (100X) (0-2/hpf); Target Cells MODERATE= 6-15 cells (100X) (0-1/hpf)
[2022-08-16] MEDS: Potassium Bicarbonate/Cit Ac 20 MEQ TAB PO SCH (08:50)
[2022-08-16] MEDS: Aspirin 81 mg Enteric Coated Tablet PO SCH (08:51)
[2022-08-16] MEDS: Apixaban 5 MG TAB PO SCH ×2 (08:51→21:17)
[2022-08-16] MEDS: Famotidine/PF 20 mg/2ml Vial SLOW IVP SCH ×2 (08:51→21:17)
[2022-08-16] MEDS: Potassium Chloride 20 MEQ TAB PO SCH ×2 (15:08→17:51)
[2022-08-16] MEDS: cefTRIAXone\\ROCEPHIN 1 GM in Sodium Chloride 0.9% 100 ML IVPB SCH (17:51)
[2022-08-16] MEDS: Azithromycin 500 MG in Sodium Chloride 0.9% 250 ML 250 ML IVPB SCH (18:32)
[2022-08-16] MEDS: Nicotine 7 MG PATCH TD SCH (18:33)
[2022-08-17] MEDS ORDERED: ALPRAZolam 0.25 MG TAB PO SCH (04:00)
[2022-08-17] MEDS: Furosemide 40 MG/4 ML VIAL SLOW IVP SCH (05:00)
[2022-08-17] MEDS: DOBUTamine 500 mg/250 ml 250 ML IVPB SCH ×2 (05:01→20:28)
[2022-08-17 06:55] LABS: #Eosinphils 0.2 thou/uL (0.0-0.7); #Lymphocytes 0.8 thou/uL (1.20-3.40); #Monocytes 0.8 thou/uL (0.11-0.59); #Neutrophils 4.5 thou/uL (1.40-6.50); %Basophils 0.7 % (0.0-1.0); %Eosinophils 2.7 % (0.0-10.0); %Lymphocytes 12.5 % (21.0-51.0); %Monocytes 12.2 % (0.0-10.0); %Neutrophils 71.9 % (42.0-75.0); Hemoglobin 11.7 g/dL (14.0-18.0); Mean Corpuscular HGB CONC 29.4 g/dL (32.0-36.0); Mean Corpuscular Hemoglobin 23.1 pg (27.0-31.0); Mean Corpuscular Volume 78.6 fl (78.0-98.0); Mean Platelet Volume 11.6 fL (7.4-10.4); Platelet Count 105 10x3/uL (130-400); RBC Distribution Width 18.3 % (11.5-14.5); Red Blood Cell (RBC) Count 5.07 mill/uL (4.70-6.10); White Blood Cell (WBC) Count 6.2 10x3/uL (4.8-10.8)
[2022-08-17 07:11] LABS: BUN (Urea Nitrogen) 25 mg/dL (8.4-25.7); Calc. Creatinine Clearance 115 mL/min (70-130); Calcium 9.1 mg/dL (7.8-10.44); Estimated GFR 81; Glucose 106 mg/dL (70-105)
[2022-08-17 07:20] LABS: Anion Gap 18 mmol/L (10-20); Carbon Dioxide 40 mmol/L (22-29); Chloride 82 mmol/L (98-107); Potassium 3.5 mmol/L (3.5-5.1); Sodium 136 mmol/L (136-145)
[2022-08-17] MEDS: ALPRAZolam 0.25 MG TAB PO PRN ×2 (07:51→20:26)
[2022-08-17] MEDS: Aspirin 81 mg Enteric Coated Tablet PO SCH (07:51)
[2022-08-17] MEDS: Potassium Bicarbonate/Cit Ac 20 MEQ TAB PO SCH (07:51)
[2022-08-17] MEDS: Famotidine/PF 20 mg/2ml Vial SLOW IVP SCH ×2 (07:51→20:26)
[2022-08-17] MEDS: Apixaban 5 MG TAB PO SCH ×2 (07:51→20:26)
[2022-08-17] MEDS ORDERED: Potassium Chloride 20 MEQ TAB PO SCH (12:00)
[2022-08-17] MEDS ORDERED: Milrinone 20 MG in Sodium Chloride 0.9% 100 ML IVPB SCH (12:45)
[2022-08-17] MEDS ORDERED: Metolazone 2.5 MG TAB PO SCH (12:45)
[2022-08-17] MEDS: Milrinone Lactate/D5W 20 MG in Premix Bag 1 BAG IV SCH ×2 (13:02→20:28)
[2022-08-17] MEDS: Furosemide 100 MG/10 ML VIAL SLOW IVP SCH (13:03)
[2022-08-17] MEDS: Nicotine 7 MG PATCH TD SCH (17:29)
[2022-08-17] MEDS: cefTRIAXone\\ROCEPHIN 1 GM in Sodium Chloride 0.9% 100 ML IVPB SCH (17:29)
[2022-08-18] MEDS: Milrinone Lactate/D5W 20 MG in Premix Bag 1 BAG IV SCH ×3 (04:21→21:13)
[2022-08-18] MEDS ORDERED: Pantoprazole 40 MG VIAL IVP SCH (05:45)
[2022-08-18 05:59] LABS: #Basophils 0.1 thou/uL (0.0-0.2); #Eosinphils 0.2 thou/uL (0.0-0.7); #Lymphocytes 0.7 thou/uL (1.20-3.40); #Monocytes 0.7 thou/uL (0.11-0.59); #Neutrophils 5.2 thou/uL (1.40-6.50); %Basophils 0.8 % (0.0-1.0); %Eosinophils 2.4 % (0.0-10.0); %Lymphocytes 9.8 % (21.0-51.0); %Monocytes 10.7 % (0.0-10.0); %Neutrophils 76.3 % (42.0-75.0); Hemoglobin 10.6 g/dL (14.0-18.0); Mean Corpuscular HGB CONC 30.8 g/dL (32.0-36.0); Mean Corpuscular Hemoglobin 23.8 pg (27.0-31.0); Mean Corpuscular Volume 77.3 fl (78.0-98.0); Mean Platelet Volume 7.2 fL (7.4-10.4); Platelet Count 104 10x3/uL (130-400); RBC Distribution Width 18.4 % (11.5-14.5); Red Blood Cell (RBC) Count 4.46 mill/uL (4.70-6.10); White Blood Cell (WBC) Count 6.8 10x3/uL (4.8-10.8)
[2022-08-18 06:04] LABS: INR-International Normal Ratio 1.9; PTT 38.2 sec (22.9-36.1); Prothrombin Time 22.9 sec (12.0-14.7)
[2022-08-18] MEDS: Furosemide 100 MG/10 ML VIAL SLOW IVP SCH ×2 (06:08→14:15)
[2022-08-18 06:15] LABS: BUN (Urea Nitrogen) 24 mg/dL (8.4-25.7); Calc. Creatinine Clearance 112 mL/min (70-130); Calcium 9.4 mg/dL (7.8-10.44); Estimated GFR 80; Glucose 149 mg/dL (70-105)
[2022-08-18 06:33] LABS: ALT (SGPT) 25 U/L (8-55); AST (SGOT) 39 U/L (5-34); Albumin 3.3 g/dL (3.5-5.0); Alkaline Phosphatase 108 U/L (40-110); Bilirubin, Direct 2.2 mg/dL (0.1-0.3); Bilirubin, Total 2.9 mg/dL (0.2-1.2); Protein, Total 6.3 g/dL (6.0-8.3)
[2022-08-18 06:56] LABS: Anion Gap 16 mmol/L (10-20); Carbon Dioxide 39 mmol/L (22-29); Chloride 82 mmol/L (98-107); Potassium 3.2 mmol/L (3.5-5.1); Sodium 134 mmol/L (136-145)
[2022-08-18] MEDS ORDERED: Potassium Chloride 20 MEQ TAB PO SCH ×2 (08:00→14:30)
[2022-08-18] MEDS: Metolazone 2.5 MG TAB PO SCH (10:29)
[2022-08-18] MEDS: Potassium Bicarbonate/Cit Ac 20 MEQ TAB PO SCH (10:29)
[2022-08-18] MEDS: ALPRAZolam 0.25 MG TAB PO PRN (10:39)
[2022-08-18 13:52] LABS: Potassium 3.5 mmol/L (3.5-5.1)
[2022-08-18] MEDS: DOBUTamine 500 mg/250 ml 250 ML IVPB SCH (14:15)
[2022-08-18] MEDS: cefTRIAXone\\ROCEPHIN 1 GM in Sodium Chloride 0.9% 100 ML IVPB SCH (18:28)
[2022-08-18] MEDS: Nicotine 7 MG PATCH TD SCH (20:21)
[2022-08-19 04:21] LABS: #Eosinphils 0.1 thou/uL (0.0-0.7); #Lymphocytes 0.9 thou/uL (1.20-3.40); #Monocytes 0.7 thou/uL (0.11-0.59); #Neutrophils 5.4 thou/uL (1.40-6.50); %Basophils 0.5 % (0.0-1.0); %Eosinophils 1.7 % (0.0-10.0); %Lymphocytes 12.6 % (21.0-51.0); %Monocytes 10.2 % (0.0-10.0); Hemoglobin 10.2 g/dL (14.0-18.0); Mean Corpuscular Hemoglobin 23.7 pg (27.0-31.0); Mean Corpuscular Volume 76.4 fl (78.0-98.0); Platelet Count 85 10x3/uL (130-400); RBC Distribution Width 18.5 % (11.5-14.5); Red Blood Cell (RBC) Count 4.33 mill/uL (4.70-6.10); White Blood Cell (WBC) Count 7.2 10x3/uL (4.8-10.8)
[2022-08-19 04:36] LABS: BUN (Urea Nitrogen) 22 mg/dL (8.4-25.7); Calc. Creatinine Clearance 105 mL/min (70-130); Calcium 9.3 mg/dL (7.8-10.44); Estimated GFR 74; Glucose 114 mg/dL (70-105)
[2022-08-19 04:45] LABS: Anion Gap 17 mmol/L (10-20); Carbon Dioxide 37 mmol/L (22-29); Chloride 83 mmol/L (98-107); Sodium 134 mmol/L (136-145)
[2022-08-19] MEDS: Milrinone Lactate/D5W 20 MG in Premix Bag 1 BAG IV SCH ×2 (05:21→22:14)
[2022-08-19] MEDS: Furosemide 100 MG/10 ML VIAL SLOW IVP SCH ×2 (06:44→14:01)
[2022-08-19] MEDS ORDERED: Potassium Chloride 20 MEQ TAB PO SCH ×2 (06:45→21:00)
[2022-08-19] MEDS: DOBUTamine 500 mg/250 ml 250 ML IVPB SCH (06:53)
[2022-08-19] MEDS: Metolazone 2.5 MG TAB PO SCH (08:56)
[2022-08-19] MEDS: Aspirin 81 mg Enteric Coated Tablet PO SCH (08:56)
[2022-08-19] MEDS: Potassium Bicarbonate/Cit Ac 20 MEQ TAB PO SCH (08:57)
[2022-08-19] MEDS: ALPRAZolam 0.25 MG TAB PO PRN (08:59)
[2022-08-19] MEDS ORDERED: Aquaphor 10 GM TUBE TOP PRN (12:17)
[2022-08-19] MEDS: Sodium Chloride 0.65% Nasal 44 ML BOT EA NARE SCH ×2 (14:02→20:19)
[2022-08-19 14:37] LABS: Potassium 3.2 mmol/L (3.5-5.1)
[2022-08-19] MEDS: Nicotine 7 MG PATCH TD SCH (18:33)
[2022-08-19] MEDS ORDERED: Nicotine 7 MG PATCH TD PRN (19:23)
[2022-08-19] MEDS: Senokot S 8.6-50 MG TAB PO SCH (20:18)
[2022-08-19] MEDS: guaiFENesin ER 600 MG TAB PO SCH (20:18)
[2022-08-19] MEDS ORDERED: guaiFENesin ER 600 MG TAB PO SCH (21:00)
[2022-08-20] MEDS: DOBUTamine 500 mg/250 ml 250 ML IVPB SCH ×2 (02:52→16:37)
[2022-08-20 03:54] LABS: #Eosinphils 0.2 thou/uL (0.0-0.7); #Monocytes 0.8 thou/uL (0.11-0.59); #Neutrophils 5.5 thou/uL (1.40-6.50); %Basophils 0.4 % (0.0-1.0); %Eosinophils 2.2 % (0.0-10.0); %Lymphocytes 12.9 % (21.0-51.0); %Monocytes 10.2 % (0.0-10.0); %Neutrophils 74.3 % (42.0-75.0); Mean Corpuscular HGB CONC 31.8 g/dL (32.0-36.0); Mean Corpuscular Hemoglobin 24.3 pg (27.0-31.0); Mean Corpuscular Volume 76.5 fl (78.0-98.0); Mean Platelet Volume 7.2 fL (7.4-10.4); Platelet Count 96 10x3/uL (130-400); RBC Distribution Width 18.6 % (11.5-14.5); Red Blood Cell (RBC) Count 4.54 mill/uL (4.70-6.10); White Blood Cell (WBC) Count 7.4 10x3/uL (4.8-10.8)
[2022-08-20 04:12] LABS: BUN (Urea Nitrogen) 23 mg/dL (8.4-25.7); Calc. Creatinine Clearance 102 mL/min (70-130); Calcium 9.7 mg/dL (7.8-10.44); Estimated GFR 72; Glucose 130 mg/dL (70-105)
[2022-08-20 04:23] LABS: Anion Gap 19 mmol/L (10-20); Carbon Dioxide 37 mmol/L (22-29); Chloride 80 mmol/L (98-107); Sodium 133 mmol/L (136-145)
[2022-08-20] MEDS: Milrinone Lactate/D5W 20 MG in Premix Bag 1 BAG IV SCH ×3 (05:30→21:31)
[2022-08-20] MEDS: Furosemide 100 MG/10 ML VIAL SLOW IVP SCH ×2 (05:34→13:07)
[2022-08-20] MEDS: ALPRAZolam 0.25 MG TAB PO PRN ×3 (06:29→22:00)
[2022-08-20] MEDS ORDERED: Magnesium 2 GM/50 ML(in water) 2 GM in Premix Bag 1 BAG IVPB SCH (08:00)
[2022-08-20] MEDS: Potassium Bicarbonate/Cit Ac 20 MEQ TAB PO SCH (09:18)
[2022-08-20] MEDS: guaiFENesin ER 600 MG TAB PO SCH ×2 (09:19→20:07)
[2022-08-20] MEDS: Multivit, Therapeutic 1 TAB PO SCH (09:19)
[2022-08-20] MEDS: Metolazone 2.5 MG TAB PO SCH (09:19)
[2022-08-20] MEDS: Senokot S 8.6-50 MG TAB PO SCH ×2 (09:19→20:07)
[2022-08-20] MEDS: Aspirin 81 mg Enteric Coated Tablet PO SCH (09:20)
[2022-08-20] MEDS: Sodium Chloride 0.65% Nasal 44 ML BOT EA NARE SCH ×3 (09:20→20:08)
[2022-08-20] MEDS ORDERED: Potassium Chloride 20 MEQ TAB PO SCH ×2 (12:00→18:45)
[2022-08-20 15:42] LABS: Potassium 3.2 mmol/L (3.5-5.1)
[2022-08-21] MEDS: DOBUTamine 500 mg/250 ml 250 ML IVPB SCH ×3 (02:01→22:52)
[2022-08-21] MEDS: Milrinone Lactate/D5W 20 MG in Premix Bag 1 BAG IV SCH ×3 (05:42→22:52)
[2022-08-21 06:05] LABS: #Basophils 0.1 thou/uL (0.0-0.2); #Eosinphils 0.1 thou/uL (0.0-0.7); #Monocytes 0.8 thou/uL (0.11-0.59); #Neutrophils 4.3 thou/uL (1.40-6.50); %Basophils 0.9 % (0.0-1.0); %Eosinophils 2.2 % (0.0-10.0); %Lymphocytes 15.3 % (21.0-51.0); %Monocytes 13.2 % (0.0-10.0); %Neutrophils 68.4 % (42.0-75.0); Hemoglobin 10.1 g/dL (14.0-18.0); Mean Corpuscular HGB CONC 31.1 g/dL (32.0-36.0); Mean Corpuscular Hemoglobin 23.9 pg (27.0-31.0); Mean Corpuscular Volume 76.9 fl (78.0-98.0); Mean Platelet Volume 12.1 fL (7.4-10.4); Platelet Count 89 10x3/uL (130-400); RBC Distribution Width 18.7 % (11.5-14.5); Red Blood Cell (RBC) Count 4.21 mill/uL (4.70-6.10); White Blood Cell (WBC) Count 6.2 10x3/uL (4.8-10.8)
[2022-08-21] MEDS: ALPRAZolam 0.25 MG TAB PO PRN ×3 (06:16→20:25)
[2022-08-21 06:17] LABS: BUN (Urea Nitrogen) 22 mg/dL (8.4-25.7); Calc. Creatinine Clearance 105 mL/min (70-130); Calcium 9.5 mg/dL (7.8-10.44); Estimated GFR 75; Glucose 118 mg/dL (70-105)
[2022-08-21] MEDS: Furosemide 100 MG/10 ML VIAL SLOW IVP SCH ×2 (06:17→14:28)
[2022-08-21 06:26] LABS: Anion Gap 16 mmol/L (10-20); Carbon Dioxide 38 mmol/L (22-29); Chloride 82 mmol/L (98-107); Potassium 2.8 mmol/L (3.5-5.1); Sodium 133 mmol/L (136-145)
[2022-08-21] MEDS: Aspirin 81 mg Enteric Coated Tablet PO SCH (08:08)
[2022-08-21] MEDS: guaiFENesin ER 600 MG TAB PO SCH ×2 (08:08→20:26)
[2022-08-21] MEDS: Multivit, Therapeutic 1 TAB PO SCH (08:08)
[2022-08-21] MEDS: Senokot S 8.6-50 MG TAB PO SCH ×2 (08:08→20:26)
[2022-08-21] MEDS: Metolazone 2.5 MG TAB PO SCH (08:08)
[2022-08-21] MEDS: Potassium Chloride 20 MEQ TAB PO SCH ×2 (08:08→17:09)
[2022-08-21] MEDS: Sodium Chloride 0.65% Nasal 44 ML BOT EA NARE SCH ×3 (08:09→20:26)
[2022-08-21] MEDS ORDERED: Potassium Chloride 20 MEQ TAB PO SCH ×2 (12:00→21:00)
[2022-08-21 15:51] LABS: Potassium 3.4 mmol/L (3.5-5.1)
[2022-08-22] MEDS: Furosemide 100 MG/10 ML VIAL SLOW IVP SCH ×2 (05:59→14:19)
[2022-08-22] MEDS: Milrinone Lactate/D5W 20 MG in Premix Bag 1 BAG IV SCH ×3 (06:33→22:32)
[2022-08-22 08:27] LABS: #Basophils 0.1 thou/uL (0.0-0.2); #Eosinphils 0.1 thou/uL (0.0-0.7); #Lymphocytes 0.8 thou/uL (1.20-3.40); #Monocytes 0.7 thou/uL (0.11-0.59); #Neutrophils 4.6 thou/uL (1.40-6.50); %Basophils 0.9 % (0.0-1.0); %Lymphocytes 13.3 % (21.0-51.0); %Monocytes 11.1 % (0.0-10.0); %Neutrophils 72.7 % (42.0-75.0); Hemoglobin 10.5 g/dL (14.0-18.0); Mean Corpuscular HGB CONC 30.6 g/dL (32.0-36.0); Mean Corpuscular Hemoglobin 23.6 pg (27.0-31.0); Mean Corpuscular Volume 77.1 fl (78.0-98.0); Mean Platelet Volume 11.8 fL (7.4-10.4); Platelet Count 97 10x3/uL (130-400); RBC Distribution Width 18.6 % (11.5-14.5); Red Blood Cell (RBC) Count 4.45 mill/uL (4.70-6.10); White Blood Cell (WBC) Count 6.4 10x3/uL (4.8-10.8)
[2022-08-22] MEDS: guaiFENesin ER 600 MG TAB PO SCH ×2 (09:12→20:16)
[2022-08-22] MEDS: Potassium Chloride 20 MEQ TAB PO SCH ×2 (09:12→17:06)
[2022-08-22] MEDS: Multivit, Therapeutic 1 TAB PO SCH (09:12)
[2022-08-22] MEDS: Metolazone 2.5 MG TAB PO SCH (09:12)
[2022-08-22] MEDS: Sodium Chloride 0.65% Nasal 44 ML BOT EA NARE SCH ×3 (09:13→20:16)
[2022-08-22] MEDS: Aspirin 81 mg Enteric Coated Tablet PO SCH (09:13)
[2022-08-22] MEDS: Senokot S 8.6-50 MG TAB PO SCH ×2 (09:13→20:15)
[2022-08-22] MEDS: ALPRAZolam 0.25 MG TAB PO PRN ×2 (09:17→20:16)
[2022-08-22] MEDS: DOBUTamine 500 mg/250 ml 250 ML IVPB SCH ×2 (09:37→18:39)
[2022-08-22 11:27] LABS: BUN (Urea Nitrogen) 23 mg/dL (8.4-25.7); Calc. Creatinine Clearance 97 mL/min (70-130); Calcium 9.9 mg/dL (7.8-10.44); Estimated GFR 73; Glucose 167 mg/dL (70-105); Magnesium 1.9 mg/dL (1.6-2.6)
[2022-08-22 11:38] LABS: Anion Gap 19 mmol/L (10-20); Carbon Dioxide 36 mmol/L (22-29); Chloride 80 mmol/L (98-107); Potassium 3.1 mmol/L (3.5-5.1); Sodium 132 mmol/L (136-145)
[2022-08-22] MEDS ORDERED: Magnesium 2 GM/50 ML(in water) 2 GM in Premix Bag 1 BAG IVPB SCH (20:00)
[2022-08-22] MEDS ORDERED: Potassium Chloride 20 MEQ TAB PO SCH (21:00)
[2022-08-23 04:02] LABS: #Eosinphils 0.1 thou/uL (0.0-0.7); #Lymphocytes 0.8 thou/uL (1.20-3.40); #Monocytes 0.6 thou/uL (0.11-0.59); #Neutrophils 3.7 thou/uL (1.40-6.50); %Basophils 0.9 % (0.0-1.0); %Eosinophils 2.2 % (0.0-10.0); %Lymphocytes 15.2 % (21.0-51.0); %Monocytes 11.6 % (0.0-10.0); %Neutrophils 70.1 % (42.0-75.0); Hemoglobin 9.4 g/dL (14.0-18.0); Mean Corpuscular HGB CONC 31.2 g/dL (32.0-36.0); Mean Corpuscular Hemoglobin 23.9 pg (27.0-31.0); Mean Corpuscular Volume 76.6 fl (78.0-98.0); Mean Platelet Volume 12.1 fL (7.4-10.4); Platelet Count 99 10x3/uL (130-400); RBC Distribution Width 18.8 % (11.5-14.5); Red Blood Cell (RBC) Count 3.94 mill/uL (4.70-6.10); White Blood Cell (WBC) Count 5.3 10x3/uL (4.8-10.8)
[2022-08-23 04:23] LABS: BUN (Urea Nitrogen) 27 mg/dL (8.4-25.7); Calc. Creatinine Clearance 84 mL/min (70-130); Calcium 9.1 mg/dL (7.8-10.44); Estimated GFR 62; Glucose 238 mg/dL (70-105)
[2022-08-23 04:31] LABS: Anion Gap 17 mmol/L (10-20); Carbon Dioxide 34 mmol/L (22-29); Chloride 80 mmol/L (98-107); Potassium 2.9 mmol/L (3.5-5.1); Sodium 128 mmol/L (136-145)
[2022-08-23] MEDS: Milrinone Lactate/D5W 20 MG in Premix Bag 1 BAG IV SCH ×3 (04:37→21:19)
[2022-08-23] MEDS: DOBUTamine 500 mg/250 ml 250 ML IVPB SCH ×3 (04:37→23:59)
[2022-08-23] MEDS: Furosemide 100 MG/10 ML VIAL SLOW IVP SCH ×2 (05:54→13:06)
[2022-08-23] MEDS: Potassium Chloride 20 MEQ TAB PO SCH ×3 (08:52→17:44)
[2022-08-23] MEDS: Aspirin 81 mg Enteric Coated Tablet PO SCH (08:53)
[2022-08-23] MEDS: Senokot S 8.6-50 MG TAB PO SCH ×2 (08:53→20:21)
[2022-08-23] MEDS: guaiFENesin ER 600 MG TAB PO SCH ×2 (08:55→20:21)
[2022-08-23] MEDS: Multivit, Therapeutic 1 TAB PO SCH (08:56)
[2022-08-23] MEDS: ALPRAZolam 0.25 MG TAB PO PRN ×2 (09:09→22:35)
[2022-08-23] MEDS: Metolazone 2.5 MG TAB PO SCH (09:09)
[2022-08-23] MEDS: Sodium Chloride 0.65% Nasal 44 ML BOT EA NARE SCH ×3 (11:12→20:21)
[2022-08-23 14:26] LABS: BUN (Urea Nitrogen) 27 mg/dL (8.4-25.7); Calc. Creatinine Clearance 92 mL/min (70-130); Calcium 9.5 mg/dL (7.8-10.44); Estimated GFR 69; Glucose 118 mg/dL (70-105)
[2022-08-23 14:37] LABS: Anion Gap 19 mmol/L (10-20); Carbon Dioxide 33 mmol/L (22-29); Chloride 81 mmol/L (98-107); Sodium 130 mmol/L (136-145)
[2022-08-23] MEDS ORDERED: clonazePAM 0.5 MG TAB PO PRN (16:52)
[2022-08-23] MEDS: Amiodarone 450 MG in Dextrose 5% in Water 250 ML IVPB SCH (17:54)
[2022-08-23] MEDS ORDERED: Potassium Chloride 20 MEQ TAB PO SCH (21:00)
[2022-08-24] MEDS: Amiodarone 450 MG in Dextrose 5% in Water 250 ML IVPB SCH ×2 (01:45→18:23)
[2022-08-24 04:22] LABS: Anion Gap 13 mmol/L (10-20); BUN (Urea Nitrogen) 29 mg/dL (8.4-25.7); Calc. Creatinine Clearance 88 mL/min (70-130); Calcium 9.2 mg/dL (7.8-10.44); Carbon Dioxide 37 mmol/L (22-29); Chloride 82 mmol/L (98-107); Estimated GFR 65; Glucose 139 mg/dL (70-105); Potassium 2.9 mmol/L (3.5-5.1); Sodium 129 mmol/L (136-145)
[2022-08-24] MEDS: Furosemide 100 MG/10 ML VIAL SLOW IVP SCH (05:21)
[2022-08-24] MEDS: Milrinone Lactate/D5W 20 MG in Premix Bag 1 BAG IV SCH ×3 (07:01→22:00)
[2022-08-24] MEDS: Potassium Chloride 20 MEQ TAB PO SCH ×4 (09:30→22:03)
[2022-08-24] MEDS: Senokot S 8.6-50 MG TAB PO SCH ×2 (11:22→22:02)
[2022-08-24] MEDS: Multivit, Therapeutic 1 TAB PO SCH (11:22)
[2022-08-24] MEDS: guaiFENesin ER 600 MG TAB PO SCH ×3 (11:22→22:03)
[2022-08-24] MEDS: Aspirin 81 mg Enteric Coated Tablet PO SCH (11:23)
[2022-08-24] MEDS: Metolazone 2.5 MG TAB PO SCH (11:23)
[2022-08-24] MEDS: Sodium Chloride 0.65% Nasal 44 ML BOT EA NARE SCH ×3 (11:33→22:05)
[2022-08-24] MEDS: DOBUTamine 500 mg/250 ml 250 ML IVPB SCH (12:44)
[2022-08-24] MEDS: Furosemide 40 MG/4 ML VIAL SLOW IVP SCH (14:35)
[2022-08-24] MEDS: clonazePAM 0.5 MG TAB PO SCH ×2 (14:40→22:02)
[2022-08-24 16:38] LABS: Anion Gap 16 mmol/L (10-20); BUN (Urea Nitrogen) 31 mg/dL (8.4-25.7); Calc. Creatinine Clearance 82 mL/min (70-130); Calcium 9.4 mg/dL (7.8-10.44); Carbon Dioxide 33 mmol/L (22-29); Chloride 83 mmol/L (98-107); Estimated GFR 60; Glucose 153 mg/dL (70-105); Sodium 129 mmol/L (136-145)
[2022-08-24] MEDS ORDERED: Potassium Chloride 20 MEQ TAB PO SCH (22:30)
[2022-08-25] MEDS: DOBUTamine 500 mg/250 ml 250 ML IVPB SCH ×3 (02:08→19:40)
[2022-08-25] MEDS: Bisacodyl 10 MG SUPP PR SCH ×2 (02:39→20:55)
[2022-08-25] MEDS: Polyethylene Glycol 3350 17 GM Packet PO SCH ×2 (02:39→20:55)
[2022-08-25 04:06] LABS: #Eosinphils 0.1 thou/uL (0.0-0.7); #Monocytes 0.7 thou/uL (0.11-0.59); #Neutrophils 5.2 thou/uL (1.40-6.50); %Basophils 0.6 % (0.0-1.0); %Eosinophils 1.8 % (0.0-10.0); %Monocytes 9.8 % (0.0-10.0); %Neutrophils 73.7 % (42.0-75.0); Hemoglobin 10.6 g/dL (14.0-18.0); Mean Corpuscular HGB CONC 31.4 g/dL (32.0-36.0); Mean Corpuscular Hemoglobin 23.8 pg (27.0-31.0); Mean Platelet Volume 7.4 fL (7.4-10.4); Platelet Count 108 10x3/uL (130-400); RBC Distribution Width 19.3 % (11.5-14.5); Red Blood Cell (RBC) Count 4.46 mill/uL (4.70-6.10)
[2022-08-25 04:19] LABS: Anion Gap 11 mmol/L (10-20); BUN (Urea Nitrogen) 32 mg/dL (8.4-25.7); Calc. Creatinine Clearance 86 mL/min (70-130); Calcium 9.3 mg/dL (7.8-10.44); Carbon Dioxide 37 mmol/L (22-29); Chloride 82 mmol/L (98-107); Estimated GFR 64; Glucose 121 mg/dL (70-105); Potassium 2.9 mmol/L (3.5-5.1); Sodium 127 mmol/L (136-145)
[2022-08-25] MEDS: Furosemide 40 MG/4 ML VIAL SLOW IVP SCH ×2 (06:16→14:11)
[2022-08-25] MEDS ORDERED: Potassium Chloride 20 MEQ TAB PO SCH (06:30)
[2022-08-25] MEDS: Milrinone Lactate/D5W 20 MG in Premix Bag 1 BAG IV SCH ×3 (06:40→22:54)
[2022-08-25 07:50] LABS: Anion Gap 14 mmol/L (10-20); BUN (Urea Nitrogen) 32 mg/dL (8.4-25.7); Calc. Creatinine Clearance 91 mL/min (70-130); Calcium 9.5 mg/dL (7.8-10.44); Carbon Dioxide 33 mmol/L (22-29); Chloride 84 mmol/L (98-107); Estimated GFR 68; Glucose 121 mg/dL (70-105); Potassium 3.3 mmol/L (3.5-5.1); Sodium 128 mmol/L (136-145)
[2022-08-25] MEDS ORDERED: Potassium Bicarbonate/Cit Ac 20 MEQ TAB PO SCH (08:00)
[2022-08-25] MEDS: Amiodarone 450 MG in Dextrose 5% in Water 250 ML IVPB SCH (08:56)
[2022-08-25] MEDS: Aspirin 81 mg Enteric Coated Tablet PO SCH (08:56)
[2022-08-25] MEDS: guaiFENesin ER 600 MG TAB PO SCH (08:56)
[2022-08-25] MEDS: Multivit, Therapeutic 1 TAB PO SCH (08:57)
[2022-08-25] MEDS: clonazePAM 0.5 MG TAB PO SCH ×3 (08:57→20:54)
[2022-08-25] MEDS: Sodium Chloride 0.65% Nasal 44 ML BOT EA NARE SCH ×3 (08:57→20:57)
[2022-08-25] MEDS: Senokot S 8.6-50 MG TAB PO SCH ×2 (08:57→20:55)
[2022-08-25] MEDS: Potassium Chloride 20 MEQ TAB PO SCH ×4 (09:01→20:54)
[2022-08-25 11:48] VITALS: BP 99/71
[2022-08-25 16:52] LABS: Anion Gap 17 mmol/L (10-20); BUN (Urea Nitrogen) 33 mg/dL (8.4-25.7); Calc. Creatinine Clearance 81 mL/min (70-130); Calcium 9.2 mg/dL (7.8-10.44); Carbon Dioxide 28 mmol/L (22-29); Chloride 85 mmol/L (98-107); Estimated GFR 58; Glucose 119 mg/dL (70-105); Potassium 3.7 mmol/L (3.5-5.1); Sodium 126 mmol/L (136-145)
[2022-08-26] MEDS: Amiodarone 450 MG in Dextrose 5% in Water 250 ML IVPB SCH (00:45)
[2022-08-26] MEDS: ALPRAZolam 0.25 MG TAB PO PRN (05:30)
[2022-08-26] MEDS: Furosemide 40 MG/4 ML VIAL SLOW IVP SCH (05:30)
[2022-08-26] MEDS: clonazePAM 0.5 MG TAB PO SCH (07:15)
[2022-08-26] MEDS: Milrinone Lactate/D5W 20 MG in Premix Bag 1 BAG IV SCH (07:16)
[2022-08-26 07:33] LABS: Anion Gap 15 mmol/L (10-20); BUN (Urea Nitrogen) 36 mg/dL (8.4-25.7); Calc. Creatinine Clearance 74 mL/min (70-130); Calcium 9.2 mg/dL (7.8-10.44); Carbon Dioxide 31 mmol/L (22-29); Chloride 86 mmol/L (98-107); Estimated GFR 51; Glucose 132 mg/dL (70-105); Potassium 3.7 mmol/L (3.5-5.1); Sodium 128 mmol/L (136-145)
[2022-08-26 08:35] VITALS: TEMP 97.8
[2022-08-26] MEDS: guaiFENesin ER 600 MG TAB PO SCH ×2 (08:58→09:13)
[2022-08-26] MEDS: Sodium Chloride 0.65% Nasal 44 ML BOT EA NARE SCH (08:58)
[2022-08-26] MEDS: Multivit, Therapeutic 1 TAB PO SCH ×2 (08:58→09:13)
[2022-08-26] MEDS: Senokot S 8.6-50 MG TAB PO SCH ×2 (08:58→09:13)
[2022-08-26] MEDS: Potassium Chloride 20 MEQ TAB PO SCH (08:58)
[2022-08-26] MEDS: Aspirin 81 mg Enteric Coated Tablet PO SCH (08:58)
== END 2022-08-26 10:55 | disposition home or self-care (01) | DRG 291 ==
LOC: ERS 16:10 → IMCU/EMU 18:48
PROVIDERS: ADMIT Family Medicine; ATTEND Internal Medicine
PROC: 4A133R1 Monitoring of Arterial Saturation, Peripheral, Percutaneous Approach (ICD-10-PCS; principal; 2022-08-12)
DX: I13.0 Hypertensive heart and chronic kidney disease with heart failure and stage 1 through stage 4 chronic kidney disease, or unspecified chronic kidney disease (principal); I50.23 Acute on chronic systolic (congestive) heart failure; J96.01 Acute respiratory failure with hypoxia; J18.9 Pneumonia, unspecified organism; N17.9 Acute kidney failure, unspecified; E87.3 Alkalosis; N18.4 Chronic kidney disease, stage 4 (severe); K92.2 Gastrointestinal hemorrhage, unspecified; R04.2 Hemoptysis; E87.1 Hypo-osmolality and hyponatremia; E87.20 Acidosis, unspecified; R18.8 Other ascites; E83.51 Hypocalcemia; F17.210 Nicotine dependence, cigarettes, uncomplicated; E11.22 Type 2 diabetes mellitus with diabetic chronic kidney disease; E11.621 Type 2 diabetes mellitus with foot ulcer; L97.529 Non-pressure chronic ulcer of other part of left foot with unspecified severity; D63.1 Anemia in chronic kidney disease; E87.6 Hypokalemia; I34.0 Nonrheumatic mitral (valve) insufficiency; I25.5 Ischemic cardiomyopathy; E66.9 Obesity, unspecified; I87.8 Other specified disorders of veins; I48.0 Paroxysmal atrial fibrillation; E83.42 Hypomagnesemia; D69.6 Thrombocytopenia, unspecified; I42.0 Dilated cardiomyopathy; I95.9 Hypotension, unspecified; Z95.810 Presence of automatic (implantable) cardiac defibrillator; Z95.1 Presence of aortocoronary bypass graft; Z79.01 Long term (current) use of anticoagulants; Z79.82 Long term (current) use of aspirin; Z79.84 Long term (current) use of oral hypoglycemic drugs; Z79.899 Other long term (current) drug therapy; Z90.49 Acquired absence of other specified parts of digestive tract; Z86.711 Personal history of pulmonary embolism; Z86.73 Personal history of transient ischemic attack (TIA), and cerebral infarction without residual deficits; Z68.28 Body mass index [BMI] 28.0-28.9, adult
CPT/HCPCS: 36415; 36416; 36600; 71045; 76700; 76770; 80048; 80053; 80076; 81003; 82533; 82550; 82553; 82805; 83605; 83735; 83880; 84145; 84484; 85025; 85384; 85610; 85730; 86850; 86900; 86901; 87040; 87086; 93005; 93798; 93970; 94660; 96365; 96367; 96374; 97139; C9113; J0282; J0456; J0696; J1250; J1815; J1940; J2260; J3475; J3490; J7050; J7070; S0028

== ENCOUNTER 2022-08-27 21:46 | Inpatient (IN) | payer MEDICARE ==
[2022-08-27 22:30] LABS: Actual Bicarbonate (HCO3v) 26 mEq/L (22-28); Base Excess 1.5 mEq/L (-2.0 to +3.0); Calcium, Ionized (venous) 1.04 mmol/L (1.16-1.32); Chloride (VBG) 86 mmol/L (98-106); Hemoglobin (Hb) 12.9 g/dL (13.1-17.2); Potassium (VBG) 4.63 mmol/L (3.70-5.30); Sodium 123.5 mmol/L (133-146); pH (venous) 7.42 (7.32-7.43)
[2022-08-27] MEDS ORDERED: Lorazepam 1 MG TAB ONE (22:30)
[2022-08-27 22:55] LABS: #Basophils 0.1 thou/uL (0.0-0.2); #Eosinphils 0.1 thou/uL (0.0-0.7); #Lymphocytes 2.2 thou/uL (1.20-3.40); #Monocytes 1.6 thou/uL (0.11-0.59); #Neutrophils 6.6 thou/uL (1.40-6.50); %Basophils 0.9 % (0.0-1.0); %Lymphocytes 20.6 % (21.0-51.0); %Monocytes 14.7 % (0.0-10.0); %Neutrophils 62.8 % (42.0-75.0); Hemoglobin 11.7 g/dL (14.0-18.0); Mean Corpuscular HGB CONC 30.8 g/dL (32.0-36.0); Mean Corpuscular Hemoglobin 23.6 pg (27.0-31.0); Mean Corpuscular Volume 76.8 fl (78.0-98.0); Mean Platelet Volume 11.4 fL (7.4-10.4); Platelet Count 259 10x3/uL (130-400); Red Blood Cell (RBC) Count 4.97 mill/uL (4.70-6.10); White Blood Cell (WBC) Count 10.5 10x3/uL (4.8-10.8)
[2022-08-27 22:58] LABS: ALT (SGPT) 30 U/L (8-55); AST (SGOT) 44 U/L (5-34); Albumin 3.9 g/dL (3.5-5.0); Alkaline Phosphatase 115 U/L (40-110); Anion Gap 18 mmol/L (10-20); BUN (Urea Nitrogen) 62 mg/dL (8.4-25.7); Bilirubin, Total 2.6 mg/dL (0.2-1.2); Calc. Creatinine Clearance 0 mL/min (70-130); Calcium 9.8 mg/dL (7.8-10.44); Carbon Dioxide 29 mmol/L (22-29); Chloride 86 mmol/L (98-107); Estimated GFR 33; Globulin 3.5 g/dL (2.4-3.5); Glucose 104 mg/dL (70-105); Potassium 4.5 mmol/L (3.5-5.1); Protein, Total 7.4 g/dL (6.0-8.3); Sodium 128 mmol/L (136-145)
[2022-08-27] MEDS ORDERED: clonazePAM 0.5 MG TAB ONE (23:08)
[2022-08-27] MEDS ORDERED: clonazePAM 1 MG TAB ONE (23:08)
[2022-08-27 23:15] LABS: CKMB 3.8 ng/mL (0-6.6)
[2022-08-28 00:39] VITALS: BMI 30.2
[2022-08-28] MEDS ORDERED: ALPRAZolam 0.25 MG TAB PO PRN (00:57)
[2022-08-28] MEDS ORDERED: Dextrose 5% in Water 1,000 ML IV PRN (01:00)
[2022-08-28] MEDS ORDERED: Dextrose 50% Abboject 50 ML SYRINGE SLOW IVP PRN (01:00)
[2022-08-28] MEDS ORDERED: HumaLOG 300 UNITS/3 ML VIAL SC PRN (01:00)
[2022-08-28] MEDS ORDERED: Acetaminophen 325 MG TAB PO PRN (01:01)
[2022-08-28] MEDS ORDERED: Senokot S 8.6-50 MG TAB PO PRN (01:01)
[2022-08-28] MEDS ORDERED: Calcium Carbonate 500 MG ChewTAB PO PRN (01:01)
[2022-08-28] MEDS ORDERED: Ondansetron ODT 4 MG TAB PO PRN (01:01)
[2022-08-28 02:42] LABS: #Basophils 0.1 thou/uL (0.0-0.2); #Eosinphils 0.1 thou/uL (0.0-0.7); #Lymphocytes 1.6 thou/uL (1.20-3.40); #Monocytes 1.2 thou/uL (0.11-0.59); %Basophils 0.9 % (0.0-1.0); %Eosinophils 1.1 % (0.0-10.0); %Lymphocytes 18.1 % (21.0-51.0); %Monocytes 13.5 % (0.0-10.0); %Neutrophils 66.3 % (42.0-75.0); Hemoglobin 11.9 g/dL (14.0-18.0); Mean Corpuscular HGB CONC 32.2 g/dL (32.0-36.0); Mean Corpuscular Hemoglobin 24.7 pg (27.0-31.0); Mean Corpuscular Volume 76.6 fl (78.0-98.0); Mean Platelet Volume 11.5 fL (7.4-10.4); Platelet Count 220 10x3/uL (130-400); RBC Distribution Width 19.9 % (11.5-14.5); Red Blood Cell (RBC) Count 4.81 mill/uL (4.70-6.10); White Blood Cell (WBC) Count 9.1 10x3/uL (4.8-10.8)
[2022-08-28 02:51] LABS: Lactic Acid 2.3 mmol/L (0.5-2.2)
[2022-08-28 02:59] LABS: Troponin I 0.063 ng/mL (< 0.028)
[2022-08-28 05:18] LABS: Anion Gap 19 mmol/L (10-20); BUN (Urea Nitrogen) 59 mg/dL (8.4-25.7); Calc. Creatinine Clearance 57 mL/min (70-130); Calcium 9.7 mg/dL (7.8-10.44); Carbon Dioxide 25 mmol/L (22-29); Chloride 87 mmol/L (98-107); Estimated GFR 37; Glucose 113 mg/dL (70-105); Sodium 127 mmol/L (136-145)
[2022-08-28 05:24] LABS: Troponin I 0.065 ng/mL (< 0.028)
[2022-08-28] MEDS ORDERED: Furosemide 40 MG/4 ML VIAL ONE (05:25)
[2022-08-28] MEDS: Furosemide 40 MG/4 ML VIAL SLOW IVP SCH ×2 (05:35→14:49)
[2022-08-28] MEDS ORDERED: ALPRAZolam 0.25 MG TAB ONE (08:47)
[2022-08-28] MEDS ORDERED: Aspirin Chewable 81 MG TAB ONE (08:47)
[2022-08-28] MEDS: guaiFENesin ER 600 MG TAB PO SCH ×2 (08:54→21:56)
[2022-08-28] MEDS: Aspirin Chewable 81 MG TAB PO SCH (08:55)
[2022-08-28] MEDS ORDERED: clonazePAM 1 MG TAB ONE (09:58)
[2022-08-28] MEDS: clonazePAM 0.5 MG TAB PO PRN ×2 (10:04→16:46)
[2022-08-28] MEDS: DOBUTamine 500 mg/250 ml 250 ML IVPB SCH (15:00)
[2022-08-29] MEDS: Furosemide 40 MG/4 ML VIAL SLOW IVP SCH ×2 (06:34→13:34)
[2022-08-29] MEDS: Aspirin Chewable 81 MG TAB PO SCH (08:56)
[2022-08-29] MEDS: guaiFENesin ER 600 MG TAB PO SCH ×2 (08:56→19:57)
[2022-08-29] MEDS: clonazePAM 0.5 MG TAB PO PRN ×2 (08:59→21:03)
[2022-08-29] MEDS: DOBUTamine 500 mg/250 ml 250 ML IVPB SCH (09:45)
[2022-08-30] MEDS: DOBUTamine 500 mg/250 ml 250 ML IVPB SCH ×2 (00:52→18:44)
[2022-08-30 04:10] LABS: #Eosinphils 0.1 thou/uL (0.0-0.7); #Lymphocytes 0.6 thou/uL (1.20-3.40); #Monocytes 0.6 thou/uL (0.11-0.59); #Neutrophils 3.5 thou/uL (1.40-6.50); %Basophils 0.6 % (0.0-1.0); %Eosinophils 1.6 % (0.0-10.0); %Lymphocytes 11.6 % (21.0-51.0); %Monocytes 12.7 % (0.0-10.0); %Neutrophils 73.5 % (42.0-75.0); Hemoglobin 9.8 g/dL (14.0-18.0); Mean Corpuscular HGB CONC 31.3 g/dL (32.0-36.0); Mean Corpuscular Hemoglobin 24.1 pg (27.0-31.0); Platelet Count 195 10x3/uL (130-400); RBC Distribution Width 19.6 % (11.5-14.5); Red Blood Cell (RBC) Count 4.06 mill/uL (4.70-6.10); White Blood Cell (WBC) Count 4.8 10x3/uL (4.8-10.8)
[2022-08-30 04:27] LABS: Anion Gap 15 mmol/L (10-20); BUN (Urea Nitrogen) 42 mg/dL (8.4-25.7); Calc. Creatinine Clearance 82 mL/min (70-130); Carbon Dioxide 36 mmol/L (22-29); Chloride 84 mmol/L (98-107); Estimated GFR 61; Glucose 127 mg/dL (70-105); Sodium 133 mmol/L (136-145)
[2022-08-30 04:32] LABS: Potassium 2.1 mmol/L (3.5-5.1)
[2022-08-30] MEDS ORDERED: Potassium Chloride 20 MEQ TAB PO SCH (04:45)
[2022-08-30] MEDS ORDERED: Potassium Chloride 40 MEQ in Premix Bag 1 BAG IVPB SCH ×2 (04:45→16:00)
[2022-08-30 05:09] LABS: Magnesium 1.8 mg/dL (1.6-2.6)
[2022-08-30] MEDS: Potassium Chloride 20 MEQ in Premix Bag 1 BAG IVPB SCH ×2 (05:10→07:29)
[2022-08-30] MEDS: clonazePAM 0.5 MG TAB PO PRN ×2 (07:30→18:44)
[2022-08-30] MEDS: Aspirin Chewable 81 MG TAB PO SCH (08:17)
[2022-08-30] MEDS: guaiFENesin ER 600 MG TAB PO SCH ×2 (08:18→23:04)
[2022-08-30] MEDS ORDERED: Electrolyte Replacement Protocol 1 EACH FS SCH (08:29)
[2022-08-30] MEDS ORDERED: Magnesium 2 GM/50 ML(in water) 2 GM in Premix Bag 1 BAG IVPB SCH (09:30)
[2022-08-30 10:38] LABS: Anion Gap 15 mmol/L (10-20); BUN (Urea Nitrogen) 35 mg/dL (8.4-25.7); Calc. Creatinine Clearance 90 mL/min (70-130); Calcium 9.2 mg/dL (7.8-10.44); Carbon Dioxide 34 mmol/L (22-29); Chloride 86 mmol/L (98-107); Estimated GFR 68; Glucose 128 mg/dL (70-105); Potassium 2.7 mmol/L (3.5-5.1); Sodium 132 mmol/L (136-145)
[2022-08-30] MEDS: Furosemide 40 MG/4 ML VIAL SLOW IVP SCH ×2 (11:15→15:40)
[2022-08-30 13:44] VITALS: BP 96/73
[2022-08-30 15:11] LABS: Anion Gap 14 mmol/L (10-20); BUN (Urea Nitrogen) 34 mg/dL (8.4-25.7); Calc. Creatinine Clearance 84 mL/min (70-130); Carbon Dioxide 37 mmol/L (22-29); Chloride 85 mmol/L (98-107); Estimated GFR 63; Glucose 115 mg/dL (70-105); Sodium 134 mmol/L (136-145)
[2022-08-30 15:28] LABS: Potassium 2.4 mmol/L (3.5-5.1)
[2022-08-30] MEDS: Potassium Chloride 20 MEQ TAB PO SCH (16:37)
[2022-08-31 07:10] LABS: Anion Gap 14 mmol/L (10-20); BUN (Urea Nitrogen) 32 mg/dL (8.4-25.7); Calc. Creatinine Clearance 95 mL/min (70-130); Calcium 8.9 mg/dL (7.8-10.44); Carbon Dioxide 33 mmol/L (22-29); Chloride 88 mmol/L (98-107); Estimated GFR 70; Glucose 114 mg/dL (70-105); Magnesium 2.2 mg/dL (1.6-2.6); Potassium 3.1 mmol/L (3.5-5.1); Sodium 132 mmol/L (136-145)
[2022-08-31] MEDS: Furosemide 40 MG/4 ML VIAL SLOW IVP SCH ×3 (07:37→14:35)
[2022-08-31] MEDS ORDERED: Potassium Chloride 20 MEQ in Premix Bag 1 BAG IVPB SCH (09:15)
[2022-08-31] MEDS: Potassium Chloride 20 MEQ TAB PO SCH ×2 (09:43→16:23)
[2022-08-31] MEDS: guaiFENesin ER 600 MG TAB PO SCH ×2 (09:44→21:15)
[2022-08-31] MEDS: Aspirin Chewable 81 MG TAB PO SCH (09:44)
[2022-08-31] MEDS: clonazePAM 0.5 MG TAB PO PRN (09:45)
[2022-08-31 15:38] LABS: Potassium 3.2 mmol/L (3.5-5.1)
[2022-08-31 21:26] LABS: SARS-CoV-2 NAA Rapid Test Not Detected (NotDetected)
[2022-09-01] MEDS: clonazePAM 0.5 MG TAB PO PRN (00:56)
[2022-09-01] MEDS: DOBUTamine 500 mg/250 ml 250 ML IVPB SCH (00:57)
[2022-09-01 04:58] LABS: Anion Gap 14 mmol/L (10-20); BUN (Urea Nitrogen) 27 mg/dL (8.4-25.7); Calc. Creatinine Clearance 103 mL/min (70-130); Carbon Dioxide 33 mmol/L (22-29); Chloride 89 mmol/L (98-107); Estimated GFR 77; Glucose 102 mg/dL (70-105); Magnesium 2.2 mg/dL (1.6-2.6); Sodium 133 mmol/L (136-145)
[2022-09-01] MEDS: Furosemide 40 MG/4 ML VIAL SLOW IVP SCH ×2 (05:33→14:59)
[2022-09-01] MEDS ORDERED: Potassium Chloride 20 MEQ TAB PO SCH ×2 (08:00→17:00)
[2022-09-01] MEDS: guaiFENesin ER 600 MG TAB PO SCH (09:50)
[2022-09-01] MEDS: Aspirin Chewable 81 MG TAB PO SCH (09:50)
[2022-09-01] MEDS: Potassium Chloride 20 MEQ TAB PO SCH (11:23)
[2022-09-01] MEDS ORDERED: Spironolactone 25 MG TAB PO SCH (11:30)
[2022-09-01 12:35] VITALS: TEMP 97.6
[2022-09-02] MEDS ORDERED: Spironolactone 25 MG TAB PO SCH (08:00)
== END 2022-09-01 15:24 | disposition left against medical advice (07) | DRG 291 ==
LOC: ERS 21:46 → ERHOLD 23:30 → IMCU/EMU 08-28 00:04
PROVIDERS: ADMIT Student in an Organized Health Care Education/Training Program; ATTEND Hospitalist
PROC: 5A09357 Assistance with Respiratory Ventilation, Less than 24 Consecutive Hours, Continuous Positive Airway Pressure (ICD-10-PCS; principal; 2022-08-27)
DX: I13.0 Hypertensive heart and chronic kidney disease with heart failure and stage 1 through stage 4 chronic kidney disease, or unspecified chronic kidney disease (principal); I50.23 Acute on chronic systolic (congestive) heart failure; J96.21 Acute and chronic respiratory failure with hypoxia; I48.20 Chronic atrial fibrillation, unspecified; N17.9 Acute kidney failure, unspecified; F41.9 Anxiety disorder, unspecified; I25.10 Atherosclerotic heart disease of native coronary artery without angina pectoris; I42.0 Dilated cardiomyopathy; D69.6 Thrombocytopenia, unspecified; F17.210 Nicotine dependence, cigarettes, uncomplicated; N18.30 Chronic kidney disease, stage 3 unspecified; E87.6 Hypokalemia; T50.2X5A Adverse effect of carbonic-anhydrase inhibitors, benzothiadiazides and other diuretics, initial encounter; E11.22 Type 2 diabetes mellitus with diabetic chronic kidney disease; Z20.822 Contact with and (suspected) exposure to COVID-19; Z95.810 Presence of automatic (implantable) cardiac defibrillator; Z95.1 Presence of aortocoronary bypass graft; Z98.890 Other specified postprocedural states; Z90.49 Acquired absence of other specified parts of digestive tract; Z79.82 Long term (current) use of aspirin; Z79.84 Long term (current) use of oral hypoglycemic drugs; Z79.899 Other long term (current) drug therapy
CPT/HCPCS: 36415; 36416; 71045; 80048; 80053; 82553; 82805; 83605; 83735; 83880; 84484; 85025; 87040; 87086; 93005; 94660; 94760; J1250; J1940; J3475; J3480; J7030; U0002

== ENCOUNTER 2022-09-24 06:37 | Inpatient (IN) | payer MEDICARE ==
[2022-09-24 07:17] LABS: #Basophils 0.1 thou/uL (0.0-0.2); #Eosinphils 0.1 thou/uL (0.0-0.7); #Lymphocytes 0.9 thou/uL (1.20-3.40); #Monocytes 0.8 thou/uL (0.11-0.59); #Neutrophils 5.1 thou/uL (1.40-6.50); %Basophils 0.7 % (0.0-1.0); %Eosinophils 1.4 % (0.0-10.0); %Lymphocytes 13.1 % (21.0-51.0); %Monocytes 11.6 % (0.0-10.0); %Neutrophils 73.2 % (42.0-75.0); Mean Corpuscular HGB CONC 31.6 g/dL (32.0-36.0); Mean Corpuscular Hemoglobin 25.2 pg (27.0-31.0); Mean Corpuscular Volume 79.9 fl (78.0-98.0); Mean Platelet Volume 10.6 fL (7.4-10.4); Platelet Count 194 10x3/uL (130-400); RBC Distribution Width 21.5 % (11.5-14.5); Red Blood Cell (RBC) Count 3.98 mill/uL (4.70-6.10)
[2022-09-24 07:44] LABS: ALT (SGPT) 12 U/L (8-55); AST (SGOT) 21 U/L (5-34); Albumin 3.6 g/dL (3.5-5.0); Alkaline Phosphatase 113 U/L (40-110); Anion Gap 16 mmol/L (10-20); BUN (Urea Nitrogen) 52 mg/dL (8.4-25.7); Bilirubin, Total 2.1 mg/dL (0.2-1.2); Calc. Creatinine Clearance 0 mL/min (70-130); Calcium 9.1 mg/dL (7.8-10.44); Carbon Dioxide 28 mmol/L (22-29); Chloride 93 mmol/L (98-107); Estimated GFR 33; Glucose 97 mg/dL (70-105); Potassium 3.3 mmol/L (3.5-5.1); Protein, Total 6.6 g/dL (6.0-8.3); Sodium 134 mmol/L (136-145)
[2022-09-24 07:48] LABS: Anisocytosis SLIGHT = 6-15 cells (100X) (0-5/hpf); Hypochromia SLIGHT = 6-15 cells (100X) (0-5/hpf); MDiff Complete? YES; Ovalocytes SLIGHT = 2-5 cells (100X) (0-1/hpf); Platelet Morphology Comment Appears Adequate; Polychromasia SLIGHT = 2-3 cells (100X) (0-2/hpf); Target Cells SLIGHT = 2-5 cells (100X) (0-1/hpf); Tear Drops SLIGHT = 2-5 cells (100X) (0-1/hpf)
[2022-09-24] MEDS ORDERED: DOBUTamine 500 mg/250 ml 250 ML ONE (07:52)
[2022-09-24 08:06] LABS: CKMB 4.8 ng/mL (0-6.6)
[2022-09-24] MEDS ORDERED: Aspirin Chewable 81 MG TAB ONE ×2 (08:29)
[2022-09-24] MEDS ORDERED: Furosemide 40 MG/4 ML VIAL ONE (08:29)
[2022-09-24] MEDS ORDERED: Potassium Chloride 20 MEQ TAB ONE (08:29)
[2022-09-24] MEDS ORDERED: Electrolyte Replacement Protocol 1 EACH IVPB ONE (10:35)
[2022-09-24] MEDS ORDERED: Senokot S 8.6-50 MG TAB PO PRN (10:43)
[2022-09-24] MEDS ORDERED: Calcium Carbonate 500 MG ChewTAB PO PRN (10:43)
[2022-09-24] MEDS ORDERED: DOBUTamine 500 mg/250 ml 250 ML IVPB SCH (10:45)
[2022-09-24] MEDS ORDERED: Electrolyte Replacement Protocol FS PRN (10:45)
[2022-09-24] MEDS ORDERED: Dextrose 50% Abboject 50 ML SYRINGE SLOW IVP PRN (10:52)
[2022-09-24] MEDS ORDERED: Insulin Regular 300 UNITS/3 ML VIAL SC PRN ×2 (10:52)
[2022-09-24] MEDS ORDERED: Dextrose 5% in Water 1,000 ML IV PRN (10:52)
[2022-09-24 11:19] VITALS: BMI 30.4
[2022-09-24 11:28] LABS: Magnesium 2.1 mg/dL (1.6-2.6)
[2022-09-24 11:38] LABS: Critical Call Chem Troponin I DECREASE; Troponin I 0.402 ng/mL (< 0.028)
[2022-09-24] MEDS ORDERED: Potassium Chloride 20 MEQ TAB PO SCH (12:00)
[2022-09-24] MEDS: clonazePAM 0.5 MG TAB PO PRN ×2 (13:07→22:41)
[2022-09-24] MEDS: Furosemide 40 MG/4 ML VIAL SLOW IVP SCH ×2 (13:07→21:13)
[2022-09-24 14:26] LABS: Critical Call Chem Troponin I DECREASE
[2022-09-24 17:42] LABS: Anion Gap 16 mmol/L (10-20); BUN (Urea Nitrogen) 51 mg/dL (8.4-25.7); Calc. Creatinine Clearance 60 mL/min (70-130); Carbon Dioxide 31 mmol/L (22-29); Chloride 92 mmol/L (98-107); Estimated GFR 38; Glucose 133 mg/dL (70-105); Potassium 2.8 mmol/L (3.5-5.1); Sodium 136 mmol/L (136-145)
[2022-09-24] MEDS: Potassium Chloride 20 MEQ TAB PO SCH ×2 (18:30→20:31)
[2022-09-24] MEDS: Apixaban 5 MG TAB PO SCH (20:30)
[2022-09-24] MEDS: Famotidine 20 MG TAB PO SCH (20:31)
[2022-09-25] MEDS: Methocarbamol 500 MG TAB PO PRN ×2 (01:26→12:09)
[2022-09-25 04:13] LABS: Hemoglobin 8.8 g/dL (14.0-18.0); Mean Corpuscular HGB CONC 31.1 g/dL (32.0-36.0); Mean Corpuscular Hemoglobin 24.8 pg (27.0-31.0); Mean Corpuscular Volume 79.6 fl (78.0-98.0); Mean Platelet Volume 10.9 fL (7.4-10.4); Platelet Count 168 10x3/uL (130-400); RBC Distribution Width 21.2 % (11.5-14.5); Red Blood Cell (RBC) Count 3.54 mill/uL (4.70-6.10); White Blood Cell (WBC) Count 5.6 10x3/uL (4.8-10.8)
[2022-09-25 04:32] LABS: ALT (SGPT) 11 U/L (8-55); AST (SGOT) 20 U/L (5-34); Albumin 3.3 g/dL (3.5-5.0); Alkaline Phosphatase 105 U/L (40-110); Anion Gap 16 mmol/L (10-20); BUN (Urea Nitrogen) 48 mg/dL (8.4-25.7); Bilirubin, Total 1.4 mg/dL (0.2-1.2); Calc. Creatinine Clearance 67 mL/min (70-130); Calcium 8.8 mg/dL (7.8-10.44); Carbon Dioxide 30 mmol/L (22-29); Chloride 92 mmol/L (98-107); Estimated GFR 43; Globulin 2.9 g/dL (2.4-3.5); Glucose 126 mg/dL (70-105); Magnesium 2.1 mg/dL (1.6-2.6); Protein, Total 6.2 g/dL (6.0-8.3); Sodium 135 mmol/L (136-145)
[2022-09-25 04:50] LABS: #Eosinphils 0.2 thou/uL (0.0-0.7); #Lymphocytes 0.8 thou/uL (1.20-3.40); #Monocytes 0.7 thou/uL (0.11-0.59); #Neutrophils 3.9 thou/uL (1.40-6.50); %Basophils 0.7 % (0.0-1.0); %Eosinophils 4.1 % (0.0-10.0); %Lymphocytes 14.4 % (21.0-51.0); %Monocytes 11.9 % (0.0-10.0); %Neutrophils 68.8 % (42.0-75.0); Platelet Morphology Comment Appears Adequate
[2022-09-25] MEDS: Furosemide 40 MG/4 ML VIAL SLOW IVP SCH ×3 (05:42→20:44)
[2022-09-25] MEDS ORDERED: Potassium Chloride 20 MEQ TAB PO SCH ×2 (08:00→09:00)
[2022-09-25] MEDS ORDERED: Aspirin Chewable 81 MG TAB PO SCH (09:00)
[2022-09-25] MEDS: clonazePAM 0.5 MG TAB PO PRN ×2 (11:30→20:45)
[2022-09-25] MEDS: Famotidine 20 MG TAB PO SCH ×2 (11:31→20:44)
[2022-09-25] MEDS: Aspirin 81 mg Enteric Coated Tablet PO SCH (11:31)
[2022-09-25] MEDS: Apixaban 5 MG TAB PO SCH ×2 (11:31→20:44)
[2022-09-25] MEDS: Potassium Chloride 20 MEQ TAB PO SCH (11:32)
[2022-09-26 04:58] LABS: ALT (SGPT) 10 U/L (8-55); AST (SGOT) 22 U/L (5-34); Albumin 3.7 g/dL (3.5-5.0); Alkaline Phosphatase 121 U/L (40-110); Anion Gap 17 mmol/L (10-20); BUN (Urea Nitrogen) 41 mg/dL (8.4-25.7); Bilirubin, Total 1.5 mg/dL (0.2-1.2); Calc. Creatinine Clearance 71 mL/min (70-130); Calcium 9.1 mg/dL (7.8-10.44); Carbon Dioxide 33 mmol/L (22-29); Chloride 91 mmol/L (98-107); Estimated GFR 47; Globulin 3.2 g/dL (2.4-3.5); Glucose 112 mg/dL (70-105); Protein, Total 6.9 g/dL (6.0-8.3); Sodium 138 mmol/L (136-145)
[2022-09-26] MEDS: Furosemide 40 MG/4 ML VIAL SLOW IVP SCH ×2 (05:44→15:34)
[2022-09-26] MEDS ORDERED: Potassium Chloride 20 MEQ TAB PO SCH (06:00)
[2022-09-26] MEDS: Apixaban 5 MG TAB PO SCH (08:17)
[2022-09-26] MEDS: Famotidine 20 MG TAB PO SCH (08:17)
[2022-09-26] MEDS: Potassium Chloride 20 MEQ TAB PO SCH (08:18)
[2022-09-26] MEDS: Aspirin 81 mg Enteric Coated Tablet PO SCH (08:18)
[2022-09-26] MEDS: clonazePAM 0.5 MG TAB PO PRN (08:18)
[2022-09-26] MEDS ORDERED: Potassium Bicarbonate/Cit Ac 20 MEQ TAB PO SCH (09:45)
[2022-09-26 17:44] VITALS: BP 97/62; TEMP 97.8
== END 2022-09-26 17:34 | disposition home or self-care (01) | DRG 280 ==
LOC: ERS 06:37 → SUATTDRO 06:37 → IMCU/EMU 09:10 → 2NO 09-25 18:10
PROVIDERS: ADMIT Internal Medicine; ATTEND Internal Medicine
DX: I13.2 Hypertensive heart and chronic kidney disease with heart failure and with stage 5 chronic kidney disease, or end stage renal disease (principal); I50.23 Acute on chronic systolic (congestive) heart failure; I21.A1 Myocardial infarction type 2; N18.6 End stage renal disease; J96.01 Acute respiratory failure with hypoxia; N17.9 Acute kidney failure, unspecified; E87.1 Hypo-osmolality and hyponatremia; I25.10 Atherosclerotic heart disease of native coronary artery without angina pectoris; E11.22 Type 2 diabetes mellitus with diabetic chronic kidney disease; E87.6 Hypokalemia; I25.5 Ischemic cardiomyopathy; I42.0 Dilated cardiomyopathy; I48.0 Paroxysmal atrial fibrillation; F41.9 Anxiety disorder, unspecified; G47.33 Obstructive sleep apnea (adult) (pediatric); Z90.49 Acquired absence of other specified parts of digestive tract; Z95.1 Presence of aortocoronary bypass graft; Z87.891 Personal history of nicotine dependence; Z79.01 Long term (current) use of anticoagulants; Z79.82 Long term (current) use of aspirin; Z79.899 Other long term (current) drug therapy; Z95.810 Presence of automatic (implantable) cardiac defibrillator; Z91.148 Patient's other noncompliance with medication regimen for other reason
CPT/HCPCS: 36415; 36416; 71045; 80053; 82553; 83735; 83880; 84484; 85025; 93005; 94660; 96365; 96366; 96374; 97139; J1250; J1940

== ENCOUNTER 2022-10-30 18:11 | Inpatient (IN) | payer MEDICARE ==
[2022-10-30 19:22] LABS: #Eosinphils 0.2 thou/uL (0.0-0.7); #Monocytes 0.9 thou/uL (0.11-0.59); #Neutrophils 4.3 thou/uL (1.40-6.50); %Basophils 0.6 % (0.0-1.0); %Lymphocytes 18.8 % (21.0-51.0); %Monocytes 13.3 % (0.0-10.0); %Neutrophils 64.1 % (42.0-75.0); Hemoglobin 10.6 g/dL (14.0-18.0); Mean Corpuscular HGB CONC 30.7 g/dL (32.0-36.0); Mean Corpuscular Hemoglobin 23.9 pg (27.0-31.0); Mean Corpuscular Volume 77.7 fl (78.0-98.0); Mean Platelet Volume 10.4 fL (7.4-10.4); Platelet Count 189 10x3/uL (130-400); RBC Distribution Width 21.3 % (11.5-14.5); Red Blood Cell (RBC) Count 4.44 mill/uL (4.70-6.10); White Blood Cell (WBC) Count 6.6 10x3/uL (4.8-10.8)
[2022-10-30 19:40] LABS: PTT 41.3 sec (22.9-36.1); Prothrombin Time 23.2 sec (12.0-14.7)
[2022-10-30 19:54] LABS: ALT (SGPT) 9 U/L (8-55); AST (SGOT) 20 U/L (5-34); Alkaline Phosphatase 137 U/L (40-110); Anion Gap 15 mmol/L (10-20); BUN (Urea Nitrogen) 30 mg/dL (8.4-25.7); Bilirubin, Total 1.9 mg/dL (0.2-1.2); Calc. Creatinine Clearance 0 mL/min (70-130); Carbon Dioxide 28 mmol/L (22-29); Chloride 97 mmol/L (98-107); Estimated GFR 60; Glucose 100 mg/dL (70-105); Magnesium 2.2 mg/dL (1.6-2.6); Potassium 3.3 mmol/L (3.5-5.1); Sodium 137 mmol/L (136-145)
[2022-10-30 19:59] LABS: Albumin 3.7 g/dL (3.5-5.0); Globulin 3.3 g/dL (2.4-3.5)
[2022-10-30 20:07] LABS: CKMB 3.6 ng/mL (0-6.6)
[2022-10-30] MEDS ORDERED: Furosemide 20 MG/2 ML VIAL ONE (20:23)
[2022-10-30] MEDS ORDERED: Ondansetron ODT 4 MG TAB PO PRN (22:37)
[2022-10-30] MEDS ORDERED: Glucagon 1 MG/ML KIT IM PRN (22:37)
[2022-10-30] MEDS ORDERED: Dextrose 5% in Water 1,000 ML IV PRN (22:37)
[2022-10-30] MEDS ORDERED: HumaLOG 300 UNITS/3 ML VIAL SC PRN (22:37)
[2022-10-30] MEDS ORDERED: Dextrose 50% Abboject 50 ML SYRINGE SLOW IVP PRN (22:37)
[2022-10-30] MEDS ORDERED: Ondansetron PF 4 MG/2 ML Vial IVP PRN (22:37)
[2022-10-30] MEDS ORDERED: Acetaminophen 325 MG TAB PO PRN (22:37)
[2022-10-30] MEDS ORDERED: Ipratropium/Albuterol 3 ML NEB NEB PRN (22:46)
[2022-10-30] MEDS ORDERED: Potassium Chloride 20 MEQ TAB PO SCH (23:00)
[2022-10-30] MEDS ORDERED: Apixaban 5 MG TAB PO SCH (23:15)
[2022-10-30] MEDS ORDERED: clonazePAM 0.5 MG TAB PO SCH (23:30)
[2022-10-30 23:51] LABS: Hemoglobin A1c 6.4 % (4.0-6.0)
[2022-10-31 05:23] LABS: #Basophils 0.1 thou/uL (0.0-0.2); #Eosinphils 0.3 thou/uL (0.0-0.7); #Neutrophils 4.7 thou/uL (1.40-6.50); %Basophils 0.8 % (0.0-1.0); %Eosinophils 4.1 % (0.0-10.0); %Lymphocytes 16.1 % (21.0-51.0); %Monocytes 13.4 % (0.0-10.0); %Neutrophils 65.5 % (42.0-75.0); Hemoglobin 10.6 g/dL (14.0-18.0); Mean Corpuscular HGB CONC 30.1 g/dL (32.0-36.0); Mean Corpuscular Volume 79.6 fl (78.0-98.0); Mean Platelet Volume 10.6 fL (7.4-10.4); Platelet Count 202 10x3/uL (130-400); RBC Distribution Width 21.3 % (11.5-14.5); Red Blood Cell (RBC) Count 4.42 mill/uL (4.70-6.10); White Blood Cell (WBC) Count 7.2 10x3/uL (4.8-10.8)
[2022-10-31 05:39] LABS: Anion Gap 12 mmol/L (10-20); BUN (Urea Nitrogen) 29 mg/dL (8.4-25.7); Calc. Creatinine Clearance 79 mL/min (70-130); Calcium 9.6 mg/dL (7.8-10.44); Carbon Dioxide 33 mmol/L (22-29); Chloride 96 mmol/L (98-107); Estimated GFR 59; Glucose 113 mg/dL (70-105); Magnesium 2.1 mg/dL (1.6-2.6); Potassium 3.1 mmol/L (3.5-5.1); Sodium 138 mmol/L (136-145)
[2022-10-31] MEDS: Furosemide 20 MG/2 ML VIAL SLOW IVP SCH ×2 (06:05→15:46)
[2022-10-31] MEDS: Apixaban 5 MG TAB PO SCH ×2 (09:20→20:52)
[2022-10-31] MEDS: clonazePAM 0.5 MG TAB PO SCH ×2 (09:20→20:52)
[2022-10-31] MEDS ORDERED: Metolazone 5 MG TAB PO SCH (18:30)
[2022-10-31] MEDS ORDERED: DOBUTamine 500 mg/250 ml 250 ML IVPB SCH (18:30)
[2022-10-31] MEDS ORDERED: Furosemide 100 MG/10 ML VIAL SLOW IVP SCH (18:30)
[2022-10-31] MEDS: DOBUTamine 500 mg/250 ml 500 MG in Premix Bag 1 BAG IVPB SCH (18:50)
[2022-11-01 05:10] LABS: #Eosinphils 0.2 thou/uL (0.0-0.7); #Monocytes 0.7 thou/uL (0.11-0.59); #Neutrophils 4.4 thou/uL (1.40-6.50); %Basophils 0.5 % (0.0-1.0); %Eosinophils 3.2 % (0.0-10.0); %Monocytes 11.2 % (0.0-10.0); %Neutrophils 69.8 % (42.0-75.0); Hemoglobin 10.3 g/dL (14.0-18.0); Mean Corpuscular HGB CONC 29.8 g/dL (32.0-36.0); Mean Corpuscular Volume 80.5 fl (78.0-98.0); Mean Platelet Volume 11.2 fL (7.4-10.4); Platelet Count 166 10x3/uL (130-400); RBC Distribution Width 21.3 % (11.5-14.5); White Blood Cell (WBC) Count 6.3 10x3/uL (4.8-10.8)
[2022-11-01 05:25] LABS: Anion Gap 13 mmol/L (10-20); BUN (Urea Nitrogen) 30 mg/dL (8.4-25.7); Calc. Creatinine Clearance 78 mL/min (70-130); Calcium 9.6 mg/dL (7.8-10.44); Carbon Dioxide 35 mmol/L (22-29); Chloride 95 mmol/L (98-107); Estimated GFR 60; Glucose 123 mg/dL (70-105); Potassium 3.1 mmol/L (3.5-5.1); Sodium 140 mmol/L (136-145)
[2022-11-01] MEDS: Furosemide 100 MG/10 ML VIAL SLOW IVP SCH ×2 (05:41→14:35)
[2022-11-01] MEDS: HumaLOG 300 UNITS/3 ML VIAL SC PRN (05:50)
[2022-11-01] MEDS: Metolazone 5 MG TAB PO SCH (09:57)
[2022-11-01] MEDS: clonazePAM 0.5 MG TAB PO SCH ×2 (09:57→20:10)
[2022-11-01] MEDS: Apixaban 5 MG TAB PO SCH (09:58)
[2022-11-01] MEDS: DOBUTamine 500 mg/250 ml 500 MG in Premix Bag 1 BAG IVPB SCH (12:49)
[2022-11-01] MEDS ORDERED: Potassium Chloride 20 MEQ TAB PO SCH (18:15)
[2022-11-02 04:46] LABS: #Basophils 0.1 thou/uL (0.0-0.2); #Eosinphils 0.3 thou/uL (0.0-0.7); #Monocytes 0.8 thou/uL (0.11-0.59); #Neutrophils 4.7 thou/uL (1.40-6.50); %Basophils 0.8 % (0.0-1.0); %Eosinophils 3.8 % (0.0-10.0); %Lymphocytes 11.3 % (21.0-51.0); %Monocytes 11.7 % (0.0-10.0); %Neutrophils 72.1 % (42.0-75.0); Hemoglobin 10.4 g/dL (14.0-18.0); Mean Corpuscular HGB CONC 29.6 g/dL (32.0-36.0); Mean Corpuscular Hemoglobin 23.6 pg (27.0-31.0); Mean Corpuscular Volume 79.8 fl (78.0-98.0); Platelet Count 166 10x3/uL (130-400); RBC Distribution Width 21.2 % (11.5-14.5); White Blood Cell (WBC) Count 6.6 10x3/uL (4.8-10.8)
[2022-11-02 05:09] LABS: Anion Gap 13 mmol/L (10-20); BUN (Urea Nitrogen) 31 mg/dL (8.4-25.7); Calc. Creatinine Clearance 74 mL/min (70-130); Calcium 9.9 mg/dL (7.8-10.44); Carbon Dioxide 37 mmol/L (22-29); Chloride 89 mmol/L (98-107); Estimated GFR 56; Glucose 176 mg/dL (70-105); Potassium 3.3 mmol/L (3.5-5.1); Sodium 136 mmol/L (136-145)
[2022-11-02] MEDS: HumaLOG 300 UNITS/3 ML VIAL SC PRN (05:26)
[2022-11-02] MEDS: Furosemide 100 MG/10 ML VIAL SLOW IVP SCH ×2 (05:33→14:32)
[2022-11-02] MEDS: clonazePAM 0.5 MG TAB PO SCH ×2 (09:23→21:03)
[2022-11-02] MEDS: Metolazone 5 MG TAB PO SCH (09:23)
[2022-11-02] MEDS: DOBUTamine 500 mg/250 ml 500 MG in Premix Bag 1 BAG IVPB SCH (09:24)
[2022-11-02] MEDS ORDERED: Potassium Chloride 20 MEQ TAB PO SCH (18:15)
[2022-11-03 04:45] LABS: #Eosinphils 0.2 thou/uL (0.0-0.7); #Monocytes 0.7 thou/uL (0.11-0.59); #Neutrophils 4.2 thou/uL (1.40-6.50); %Basophils 0.7 % (0.0-1.0); %Eosinophils 4.1 % (0.0-10.0); %Lymphocytes 11.2 % (21.0-51.0); %Monocytes 11.2 % (0.0-10.0); %Neutrophils 72.5 % (42.0-75.0); Hemoglobin 10.1 g/dL (14.0-18.0); Mean Corpuscular HGB CONC 30.4 g/dL (32.0-36.0); Mean Corpuscular Hemoglobin 23.8 pg (27.0-31.0); Mean Corpuscular Volume 78.1 fl (78.0-98.0); Mean Platelet Volume 11.2 fL (7.4-10.4); Platelet Count 147 10x3/uL (130-400); RBC Distribution Width 20.7 % (11.5-14.5); Red Blood Cell (RBC) Count 4.25 mill/uL (4.70-6.10); White Blood Cell (WBC) Count 5.8 10x3/uL (4.8-10.8)
[2022-11-03 06:32] LABS: BUN (Urea Nitrogen) 30 mg/dL (8.4-25.7); Calc. Creatinine Clearance 71 mL/min (70-130); Calcium 9.9 mg/dL (7.8-10.44); Estimated GFR 56; Glucose 174 mg/dL (70-105)
[2022-11-03 06:41] LABS: Anion Gap 14 mmol/L (10-20); Carbon Dioxide 38 mmol/L (22-29); Chloride 86 mmol/L (98-107); Potassium 3.2 mmol/L (3.5-5.1); Sodium 135 mmol/L (136-145)
[2022-11-03 08:32] VITALS: TEMP 97.7
[2022-11-03 08:49] VITALS: BMI 26.1
[2022-11-03] MEDS: clonazePAM 0.5 MG TAB PO SCH (08:59)
[2022-11-03] MEDS: Torsemide 100 MG TAB PO SCH ×2 (09:02→14:53)
[2022-11-03 10:44] VITALS: BP 98/61
== END 2022-11-03 16:27 | disposition home or self-care (01) | DRG 291 ==
LOC: ERS 18:11 → 2NO 21:26
PROVIDERS: ADMIT Internal Medicine; ATTEND Internal Medicine
PROC: 5A09357 Assistance with Respiratory Ventilation, Less than 24 Consecutive Hours, Continuous Positive Airway Pressure (ICD-10-PCS; principal; 2022-10-31)
DX: I13.0 Hypertensive heart and chronic kidney disease with heart failure and stage 1 through stage 4 chronic kidney disease, or unspecified chronic kidney disease (principal); I50.23 Acute on chronic systolic (congestive) heart failure; R57.0 Cardiogenic shock; J96.21 Acute and chronic respiratory failure with hypoxia; N17.9 Acute kidney failure, unspecified; E87.1 Hypo-osmolality and hyponatremia; I48.20 Chronic atrial fibrillation, unspecified; J91.8 Pleural effusion in other conditions classified elsewhere; I25.10 Atherosclerotic heart disease of native coronary artery without angina pectoris; E11.22 Type 2 diabetes mellitus with diabetic chronic kidney disease; N18.30 Chronic kidney disease, stage 3 unspecified; F41.9 Anxiety disorder, unspecified; K72.90 Hepatic failure, unspecified without coma; D63.1 Anemia in chronic kidney disease; R77.8 Other specified abnormalities of plasma proteins; I49.3 Ventricular premature depolarization; G47.33 Obstructive sleep apnea (adult) (pediatric); E87.6 Hypokalemia; I25.5 Ischemic cardiomyopathy; I42.0 Dilated cardiomyopathy; Z95.810 Presence of automatic (implantable) cardiac defibrillator; Z95.1 Presence of aortocoronary bypass graft; Z98.890 Other specified postprocedural states; Z90.49 Acquired absence of other specified parts of digestive tract; Z79.82 Long term (current) use of aspirin; Z79.899 Other long term (current) drug therapy; Z79.01 Long term (current) use of anticoagulants; Z86.711 Personal history of pulmonary embolism; Z86.73 Personal history of transient ischemic attack (TIA), and cerebral infarction without residual deficits; Z86.16 Personal history of COVID-19; Z80.0 Family history of malignant neoplasm of digestive organs; Z87.01 Personal history of pneumonia (recurrent); Z87.891 Personal history of nicotine dependence
CPT/HCPCS: 36415; 36416; 71045; 80048; 80053; 82553; 83036; 83605; 83735; 83880; 84484; 85025; 85610; 85730; 93005; 94660; 94760; 96374; 97139; J1250; J1815; J1940

== ENCOUNTER 2022-11-18 03:40 | Inpatient (IN) | payer MEDICARE ==
[2022-11-18 04:56] LABS: #Basophils 0.1 thou/uL (0.0-0.2); #Eosinphils 0.2 thou/uL (0.0-0.7); #Monocytes 0.7 thou/uL (0.11-0.59); #Neutrophils 4.9 thou/uL (1.40-6.50); %Eosinophils 2.5 % (0.0-10.0); %Lymphocytes 14.3 % (21.0-51.0); %Monocytes 10.5 % (0.0-10.0); %Neutrophils 71.1 % (42.0-75.0); Hemoglobin 11.2 g/dL (14.0-18.0); Mean Corpuscular Hemoglobin 23.5 pg (27.0-31.0); Mean Corpuscular Volume 78.2 fl (78.0-98.0); Mean Platelet Volume 10.5 fL (7.4-10.4); Platelet Count 255 10x3/uL (130-400); RBC Distribution Width 21.2 % (11.5-14.5); Red Blood Cell (RBC) Count 4.77 mill/uL (4.70-6.10); White Blood Cell (WBC) Count 6.9 10x3/uL (4.8-10.8)
[2022-11-18 05:22] LABS: Chloride 99 mmol/L (98-107); Potassium 3.5 mmol/L (3.5-5.1); Sodium 135 mmol/L (136-145)
[2022-11-18 05:27] LABS: Albumin 4.1 g/dL (3.5-5.0)
[2022-11-18 05:29] LABS: Calcium 8.8 mg/dL (7.8-10.44)
[2022-11-18 05:30] LABS: Globulin 3.5 g/dL (2.4-3.5); Glucose 117 mg/dL (70-105); Protein, Total 7.6 g/dL (6.0-8.3)
[2022-11-18 05:31] LABS: Carbon Dioxide 18 mmol/L (22-29)
[2022-11-18 05:32] LABS: Alkaline Phosphatase 140 U/L (40-110); Bilirubin, Total 1.4 mg/dL (0.2-1.2)
[2022-11-18 05:33] LABS: Calc. Creatinine Clearance 0 mL/min (70-130); Estimated GFR 43
[2022-11-18 05:34] LABS: BUN (Urea Nitrogen) 33 mg/dL (8.4-25.7)
[2022-11-18 05:35] LABS: AST (SGOT) 27 U/L (5-34)
[2022-11-18] MEDS ORDERED: Furosemide 40 MG/4 ML VIAL ONE (05:35)
[2022-11-18 05:36] LABS: ALT (SGPT) 13 U/L (8-55); Lipase 20 U/L (8-78)
[2022-11-18 05:41] LABS: CKMB 5.2 ng/mL (0-6.6)
[2022-11-18 06:26] LABS: Anion Gap 22 mmol/L (10-20)
[2022-11-18 08:25] LABS: Troponin I 0.068 ng/mL (< 0.028)
[2022-11-18] MEDS ORDERED: Acetaminophen 325 MG TAB PO PRN (08:58)
[2022-11-18] MEDS ORDERED: Glucagon 1 MG/ML KIT IM PRN (08:58)
[2022-11-18] MEDS ORDERED: Dextrose 50% Abboject 50 ML SYRINGE SLOW IVP PRN (08:58)
[2022-11-18] MEDS ORDERED: HumaLOG 300 UNITS/3 ML VIAL SC PRN (08:58)
[2022-11-18] MEDS ORDERED: Dextrose 5% in Water 1,000 ML IV PRN (08:58)
[2022-11-18] MEDS ORDERED: Ondansetron PF 4 MG/2 ML Vial IVP PRN (10:52)
[2022-11-18] MEDS ORDERED: Ondansetron ODT 4 MG TAB PO PRN (10:52)
[2022-11-18 11:45] VITALS: BMI 28.1
[2022-11-18 11:59] LABS: Troponin I 0.026 ng/mL (< 0.028)
[2022-11-18] MEDS: Famotidine 20 MG TAB PO SCH ×2 (13:04→19:34)
[2022-11-18] MEDS: Furosemide 40 MG/4 ML VIAL SLOW IVP SCH (13:04)
[2022-11-18] MEDS ORDERED: clonazePAM 0.5 MG TAB PO SCH (13:30)
[2022-11-18] MEDS ORDERED: DOBUTamine 500 mg/250 ml 250 ML IVPB SCH ×2 (18:15)
[2022-11-18] MEDS: Atorvastatin Calcium 40 MG TAB PO SCH (19:34)
[2022-11-18] MEDS: clonazePAM 0.5 MG TAB PO SCH (19:34)
[2022-11-18] MEDS: Apixaban 5 MG TAB PO SCH (19:34)
[2022-11-19 04:38] LABS: #Basophils 0.1 thou/uL (0.0-0.2); #Eosinphils 0.2 thou/uL (0.0-0.7); #Monocytes 0.8 thou/uL (0.11-0.59); #Neutrophils 3.8 thou/uL (1.40-6.50); %Basophils 0.9 % (0.0-1.0); %Lymphocytes 14.3 % (21.0-51.0); %Monocytes 13.5 % (0.0-10.0); %Neutrophils 67.9 % (42.0-75.0); Mean Corpuscular HGB CONC 30.6 g/dL (32.0-36.0); Mean Corpuscular Hemoglobin 23.6 pg (27.0-31.0); Mean Corpuscular Volume 77.1 fl (78.0-98.0); Mean Platelet Volume 11.3 fL (7.4-10.4); Platelet Count 200 10x3/uL (130-400); RBC Distribution Width 20.8 % (11.5-14.5); Red Blood Cell (RBC) Count 4.24 mill/uL (4.70-6.10); White Blood Cell (WBC) Count 5.6 10x3/uL (4.8-10.8)
[2022-11-19 05:12] LABS: Anion Gap 13 mmol/L (10-20); BUN (Urea Nitrogen) 23 mg/dL (8.4-25.7); Calc. Creatinine Clearance 80 mL/min (70-130); Carbon Dioxide 30 mmol/L (22-29); Chloride 99 mmol/L (98-107); Estimated GFR 59; Glucose 153 mg/dL (70-105); Magnesium 2.3 mg/dL (1.6-2.6); Potassium 2.9 mmol/L (3.5-5.1); Sodium 139 mmol/L (136-145)
[2022-11-19] MEDS: Furosemide 40 MG/4 ML VIAL SLOW IVP SCH (05:46)
[2022-11-19] MEDS ORDERED: Potassium Chloride 20 MEQ TAB PO SCH ×2 (08:30→19:15)
[2022-11-19] MEDS ORDERED: Potassium Chloride 20 MEQ in Premix Bag 1 BAG IVPB SCH ×2 (09:00→13:00)
[2022-11-19] MEDS: clonazePAM 0.5 MG TAB PO SCH ×2 (09:58→19:18)
[2022-11-19] MEDS: Aspirin 81 mg Enteric Coated Tablet PO SCH (09:58)
[2022-11-19] MEDS: Famotidine 20 MG TAB PO SCH ×2 (09:59→19:18)
[2022-11-19] MEDS: Apixaban 5 MG TAB PO SCH (09:59)
[2022-11-19] MEDS ORDERED: DOBUTamine 500 mg/250 ml 500 MG in Premix Bag 1 BAG IVPB SCH ×2 (11:02→18:30)
[2022-11-19] MEDS ORDERED: Furosemide 100 MG/10 ML VIAL SLOW IVP SCH (14:00)
[2022-11-19 18:11] LABS: Anion Gap 14 mmol/L (10-20); BUN (Urea Nitrogen) 22 mg/dL (8.4-25.7); Calc. Creatinine Clearance 76 mL/min (70-130); Calcium 9.1 mg/dL (7.8-10.44); Carbon Dioxide 31 mmol/L (22-29); Chloride 99 mmol/L (98-107); Estimated GFR 57; Glucose 122 mg/dL (70-105); Magnesium 2.4 mg/dL (1.6-2.6); Potassium 3.8 mmol/L (3.5-5.1); Sodium 140 mmol/L (136-145)
[2022-11-19] MEDS ORDERED: Milrinone 20 MG in Sodium Chloride 0.9% 100 ML IVPB SCH ×2 (18:30→18:45)
[2022-11-19] MEDS: Milrinone Lactate/D5W 20 MG in Premix Bag 1 BAG IVPB SCH (19:16)
[2022-11-19] MEDS: Atorvastatin Calcium 40 MG TAB PO SCH (19:18)
[2022-11-19] MEDS: Potassium Chloride 20 MEQ TAB PO SCH (19:19)
[2022-11-20 03:58] LABS: #Eosinphils 0.3 thou/uL (0.0-0.7); #Monocytes 0.9 thou/uL (0.11-0.59); #Neutrophils 4.4 thou/uL (1.40-6.50); %Basophils 0.6 % (0.0-1.0); %Eosinophils 4.2 % (0.0-10.0); %Lymphocytes 9.1 % (21.0-51.0); %Monocytes 14.2 % (0.0-10.0); %Neutrophils 71.6 % (42.0-75.0); Hemoglobin 9.3 g/dL (14.0-18.0); Mean Corpuscular HGB CONC 30.5 g/dL (32.0-36.0); Mean Corpuscular Hemoglobin 24.1 pg (27.0-31.0); Mean Platelet Volume 10.8 fL (7.4-10.4); Platelet Count 176 10x3/uL (130-400); RBC Distribution Width 20.7 % (11.5-14.5); Red Blood Cell (RBC) Count 3.86 mill/uL (4.70-6.10); White Blood Cell (WBC) Count 6.2 10x3/uL (4.8-10.8)
[2022-11-20 04:28] LABS: Anion Gap 13 mmol/L (10-20); BUN (Urea Nitrogen) 23 mg/dL (8.4-25.7); Calc. Creatinine Clearance 79 mL/min (70-130); Calcium 9.4 mg/dL (7.8-10.44); Carbon Dioxide 33 mmol/L (22-29); Chloride 98 mmol/L (98-107); Estimated GFR 59; Glucose 141 mg/dL (70-105); Magnesium 2.4 mg/dL (1.6-2.6); Potassium 3.8 mmol/L (3.5-5.1); Sodium 140 mmol/L (136-145)
[2022-11-20] MEDS: Furosemide 40 MG/4 ML VIAL SLOW IVP SCH (05:37)
[2022-11-20] MEDS ORDERED: Apixaban 5 MG TAB PO SCH (09:00)
[2022-11-20] MEDS ORDERED: AcetaZOLAMIDE 250 MG TAB PO SCH (09:00)
[2022-11-20] MEDS ORDERED: Potassium Chloride 20 MEQ TAB PO SCH (09:15)
[2022-11-20 09:42] LABS: Fluid, pH - Pleural Fld 7.49 (7.60 - 7.66)
[2022-11-20] MEDS: Famotidine 20 MG TAB PO SCH (10:02)
[2022-11-20] MEDS: Aspirin 81 mg Enteric Coated Tablet PO SCH (10:03)
[2022-11-20] MEDS: clonazePAM 0.5 MG TAB PO SCH (10:03)
[2022-11-20] MEDS: Potassium Chloride 20 MEQ TAB PO SCH (10:04)
[2022-11-20 10:13] LABS: RBC Count-Automated (BF) 14654 /cu.mm; WBC/Nucleated-Auto (BF) 774 /cu.mm
[2022-11-20 10:15] LABS: BF Color Red; Body Fluid Source Thoracentesis Fluid; Clarity Hazy (Clear); Tube # EDTA
[2022-11-20] MEDS ORDERED: Furosemide 100 MG/10 ML VIAL SLOW IVP SCH (10:30)
[2022-11-20 10:31] LABS: Fluid, Triglycerides 194 mg/dL (Not Available); Pleural Fluid, Amylase Less than 30 U/L (Not Available); Pleural Fluid, Glucose 139 mg/dL; Pleural Fluid, LDH 135 U/L (Not Available); Pleural Fluid, Protein 3.6 g/dL
[2022-11-20 10:34] LABS: BF Segmented Neutrophils 5 %; Cell Count Non Hematic 60 %; Lymphocytes 35 %
[2022-11-20] MEDS: Milrinone Lactate/D5W 20 MG in Premix Bag 1 BAG IVPB SCH (13:16)
[2022-11-20 15:09] VITALS: BP 101/64
[2022-11-20 15:29] VITALS: TEMP 97.7
== END 2022-11-20 15:48 | disposition short-term general hospital (02) | DRG 291 ==
LOC: ERS 03:40 → SUATTDRO 03:40 → 2NO 09:13 → IMCU/EMU 11-19 18:43
PROVIDERS: ADMIT Internal Medicine; ATTEND Internal Medicine
PROC: 5A09357 Assistance with Respiratory Ventilation, Less than 24 Consecutive Hours, Continuous Positive Airway Pressure (ICD-10-PCS; 2022-11-19)
PROC: 02HV33Z Insertion of Infusion Device into Superior Vena Cava, Percutaneous Approach (ICD-10-PCS; principal; 2022-11-20)
PROC: B548ZZA Ultrasonography of Superior Vena Cava, Guidance (ICD-10-PCS; 2022-11-20)
PROC: 0W993ZZ Drainage of Right Pleural Cavity, Percutaneous Approach (ICD-10-PCS; 2022-11-20)
PROC: B5181ZA Fluoroscopy of Superior Vena Cava using Low Osmolar Contrast, Guidance (ICD-10-PCS; 2022-11-20)
DX: I13.0 Hypertensive heart and chronic kidney disease with heart failure and stage 1 through stage 4 chronic kidney disease, or unspecified chronic kidney disease (principal); I50.43 Acute on chronic combined systolic (congestive) and diastolic (congestive) heart failure; J96.21 Acute and chronic respiratory failure with hypoxia; R57.0 Cardiogenic shock; J91.8 Pleural effusion in other conditions classified elsewhere; E87.3 Alkalosis; I25.10 Atherosclerotic heart disease of native coronary artery without angina pectoris; E11.22 Type 2 diabetes mellitus with diabetic chronic kidney disease; N18.30 Chronic kidney disease, stage 3 unspecified; G47.33 Obstructive sleep apnea (adult) (pediatric); F41.9 Anxiety disorder, unspecified; I25.5 Ischemic cardiomyopathy; I48.0 Paroxysmal atrial fibrillation; E87.6 Hypokalemia; I44.7 Left bundle-branch block, unspecified; Z79.899 Other long term (current) drug therapy; Z79.82 Long term (current) use of aspirin; Z79.01 Long term (current) use of anticoagulants; Z95.5 Presence of coronary angioplasty implant and graft; Z95.810 Presence of automatic (implantable) cardiac defibrillator; Z90.49 Acquired absence of other specified parts of digestive tract; Z87.891 Personal history of nicotine dependence; Z87.898 Personal history of other specified conditions; Z98.890 Other specified postprocedural states; Z86.73 Personal history of transient ischemic attack (TIA), and cerebral infarction without residual deficits; Z80.1 Family history of malignant neoplasm of trachea, bronchus and lung; Z80.0 Family history of malignant neoplasm of digestive organs; Z95.1 Presence of aortocoronary bypass graft
CPT/HCPCS: 36415; 36416; 36569; 71045; 80048; 80053; 82150; 82553; 82945; 83615; 83690; 83735; 83880; 83986; 84155; 84157; 84478; 84484; 85025; 85060; 87116; 87206; 88112; 88305; 88341; 88342; 89051; 93005; 94660; 96374; C1751; J1250; J1815; J1940; J2260; J3480; J7070

== ENCOUNTER 2022-12-16 23:42 | Inpatient (IN) | payer MEDICARE ==
[2022-12-17] MEDS ORDERED: Furosemide 40 MG/4 ML VIAL ONE (00:13)
[2022-12-17 00:32] LABS: #Basophils 0.1 thou/uL (0.0-0.2); #Eosinphils 0.4 thou/uL (0.0-0.7); #Monocytes 0.8 thou/uL (0.11-0.59); #Neutrophils 4.5 thou/uL (1.40-6.50); %Basophils 0.9 % (0.0-1.0); %Eosinophils 6.2 % (0.0-10.0); %Lymphocytes 15.2 % (21.0-51.0); %Monocytes 11.1 % (0.0-10.0); %Neutrophils 66.2 % (42.0-75.0); Hemoglobin 8.3 g/dL (14.0-18.0); Mean Corpuscular HGB CONC 29.1 g/dL (32.0-36.0); Mean Corpuscular Hemoglobin 23.1 pg (27.0-31.0); Mean Corpuscular Volume 79.2 fl (78.0-98.0); Mean Platelet Volume 10.1 fL (7.4-10.4); Platelet Count 241 10x3/uL (130-400); RBC Distribution Width 20.4 % (11.5-14.5); White Blood Cell (WBC) Count 6.8 10x3/uL (4.8-10.8)
[2022-12-17 00:52] LABS: INR-International Normal Ratio 1.7; Prothrombin Time 20.3 sec (12.0-14.7)
[2022-12-17 01:21] LABS: CKMB 4.4 ng/mL (0-6.6)
[2022-12-17 01:53] LABS: ALT (SGPT) 12 U/L (8-55); AST (SGOT) 18 U/L (5-34); Albumin 3.7 g/dL (3.5-5.0); Alkaline Phosphatase 97 U/L (40-110); Anion Gap 16 mmol/L (10-20); BUN (Urea Nitrogen) 22 mg/dL (8.4-25.7); Bilirubin, Total 0.7 mg/dL (0.2-1.2); Calc. Creatinine Clearance 0 mL/min (70-130); Carbon Dioxide 32 mmol/L (22-29); Chloride 96 mmol/L (98-107); Estimated GFR 77; Globulin 3.4 g/dL (2.4-3.5); Glucose 110 mg/dL (70-105); Potassium 2.7 mmol/L (3.5-5.1); Protein, Total 7.1 g/dL (6.0-8.3); Sodium 141 mmol/L (136-145)
[2022-12-17] MEDS ORDERED: Ondansetron PF 4 MG/2 ML Vial IVP PRN (03:51)
[2022-12-17] MEDS ORDERED: Ondansetron ODT 4 MG TAB PO PRN (03:51)
[2022-12-17] MEDS ORDERED: Acetaminophen 325 MG TAB PO PRN (03:51)
[2022-12-17] MEDS ORDERED: Calcium Carbonate 500 MG ChewTAB PO PRN (03:51)
[2022-12-17] MEDS ORDERED: Senokot S 8.6-50 MG TAB PO PRN (03:51)
[2022-12-17] MEDS ORDERED: Electrolyte Replacement Protocol 1 EACH FS PRN (03:53)
[2022-12-17 04:48] LABS: Troponin I 0.038 ng/mL (< 0.028)
[2022-12-17 07:46] LABS: Troponin I 0.036 ng/mL (< 0.028)
[2022-12-17] MEDS ORDERED: Torsemide 100 MG TAB PO SCH (09:00)
[2022-12-17] MEDS: Atorvastatin Calcium 40 MG TAB PO SCH (09:10)
[2022-12-17] MEDS: Apixaban 5 MG TAB PO SCH ×2 (09:10→20:06)
[2022-12-17 09:22] VITALS: BMI 27.6
[2022-12-17] MEDS ORDERED: Famotidine 20 MG TAB ONE (09:38)
[2022-12-17] MEDS ORDERED: Aspirin Chewable 81 MG TAB ONE (09:38)
[2022-12-17] MEDS ORDERED: clonazePAM 0.5 MG TAB ONE (09:38)
[2022-12-17] MEDS: Famotidine 20 MG TAB PO SCH ×2 (09:39→20:06)
[2022-12-17] MEDS: Famotidine/PF 20 mg/2ml Vial SLOW IVP SCH ×2 (09:39→20:07)
[2022-12-17] MEDS: clonazePAM 0.5 MG TAB PO SCH ×2 (09:39→20:06)
[2022-12-17] MEDS: Aspirin Chewable 81 MG TAB PO SCH (09:40)
[2022-12-17] MEDS ORDERED: Potassium Bicarbonate/Cit Ac 20 MEQ TAB PO SCH (09:45)
[2022-12-17 10:29] LABS: Anion Gap 16 mmol/L (10-20); BUN (Urea Nitrogen) 21 mg/dL (8.4-25.7); Calc. Creatinine Clearance 117 mL/min (70-130); Calcium 9.1 mg/dL (7.8-10.44); Carbon Dioxide 31 mmol/L (22-29); Chloride 97 mmol/L (98-107); Estimated GFR 95; Glucose 112 mg/dL (70-105); Potassium 2.9 mmol/L (3.5-5.1); Sodium 141 mmol/L (136-145)
[2022-12-17 12:46] VITALS: BP 100/73
[2022-12-17] MEDS ORDERED: Potassium Chloride 20 MEQ TAB PO SCH (14:00)
[2022-12-17] MEDS ORDERED: Potassium Chloride 20 MEQ TAB ONE (15:36)
[2022-12-17] MEDS: Bumetanide 1 MG/4 ML VIAL IVP SCH (15:51)
[2022-12-17] MEDS ORDERED: Ipratropium/Albuterol 3 ML NEB NEB PRN (16:18)
[2022-12-17] MEDS ORDERED: Ipratropium/Albuterol 3 ML NEB ONE (16:21)
[2022-12-17] MEDS: Melatonin 3 MG TAB PO PRN (23:01)
[2022-12-17] MEDS: Ipratropium/Albuterol 3 ML NEB NEB PRN (23:14)
[2022-12-18] MEDS ORDERED: diphenhydrAMINE 25 MG CAP PO SCH (02:30)
[2022-12-18] MEDS: Bumetanide 1 MG/4 ML VIAL IVP SCH ×2 (04:26→12:41)
[2022-12-18 04:44] LABS: #Basophils 0.1 thou/uL (0.0-0.2); #Eosinphils 0.3 thou/uL (0.0-0.7); #Monocytes 0.7 thou/uL (0.11-0.59); #Neutrophils 3.1 thou/uL (1.40-6.50); %Eosinophils 6.5 % (0.0-10.0); %Lymphocytes 18.9 % (21.0-51.0); %Monocytes 14.1 % (0.0-10.0); %Neutrophils 59.1 % (42.0-75.0); Hemoglobin 8.4 g/dL (14.0-18.0); Mean Corpuscular HGB CONC 29.4 g/dL (32.0-36.0); Mean Corpuscular Hemoglobin 23.2 pg (27.0-31.0); Mean Platelet Volume 10.3 fL (7.4-10.4); Platelet Count 208 10x3/uL (130-400); RBC Distribution Width 20.2 % (11.5-14.5); Red Blood Cell (RBC) Count 3.62 mill/uL (4.70-6.10); White Blood Cell (WBC) Count 5.2 10x3/uL (4.8-10.8)
[2022-12-18 05:10] LABS: Anion Gap 14 mmol/L (10-20); BUN (Urea Nitrogen) 25 mg/dL (8.4-25.7); Calc. Creatinine Clearance 88 mL/min (70-130); Calcium 9.3 mg/dL (7.8-10.44); Carbon Dioxide 33 mmol/L (22-29); Chloride 95 mmol/L (98-107); Estimated GFR 67; Glucose 117 mg/dL (70-105); Potassium 3.9 mmol/L (3.5-5.1); Sodium 138 mmol/L (136-145)
[2022-12-18] MEDS: Atorvastatin Calcium 40 MG TAB PO SCH (08:55)
[2022-12-18] MEDS: Apixaban 5 MG TAB PO SCH ×2 (08:55→20:53)
[2022-12-18] MEDS: Aspirin Chewable 81 MG TAB PO SCH (08:55)
[2022-12-18] MEDS: Famotidine 20 MG TAB PO SCH ×2 (08:55→20:53)
[2022-12-18] MEDS: clonazePAM 0.5 MG TAB PO SCH ×2 (08:55→20:53)
[2022-12-18] MEDS: DOBUTamine 500 mg/250 ml 250 ML IVPB SCH (08:56)
[2022-12-18] MEDS: Famotidine/PF 20 mg/2ml Vial SLOW IVP SCH ×2 (08:56→20:53)
[2022-12-19] MEDS: DOBUTamine 500 mg/250 ml 250 ML IVPB SCH (02:14)
[2022-12-19 04:28] LABS: #Eosinphils 0.4 thou/uL (0.0-0.7); #Neutrophils 3.3 thou/uL (1.40-6.50); %Basophils 0.7 % (0.0-1.0); %Eosinophils 7.4 % (0.0-10.0); %Lymphocytes 13.5 % (21.0-51.0); %Monocytes 18.2 % (0.0-10.0); %Neutrophils 59.8 % (42.0-75.0); Hemoglobin 8.1 g/dL (14.0-18.0); Mean Corpuscular HGB CONC 28.9 g/dL (32.0-36.0); Mean Corpuscular Hemoglobin 22.8 pg (27.0-31.0); Mean Corpuscular Volume 78.7 fl (78.0-98.0); Mean Platelet Volume 10.7 fL (7.4-10.4); Platelet Count 181 10x3/uL (130-400); RBC Distribution Width 19.9 % (11.5-14.5); Red Blood Cell (RBC) Count 3.56 mill/uL (4.70-6.10); White Blood Cell (WBC) Count 5.6 10x3/uL (4.8-10.8)
[2022-12-19 04:48] LABS: Anion Gap 14 mmol/L (10-20); BUN (Urea Nitrogen) 26 mg/dL (8.4-25.7); Calc. Creatinine Clearance 78 mL/min (70-130); Calcium 9.2 mg/dL (7.8-10.44); Carbon Dioxide 33 mmol/L (22-29); Chloride 97 mmol/L (98-107); Estimated GFR 60; Glucose 118 mg/dL (70-105); Sodium 140 mmol/L (136-145)
[2022-12-19] MEDS: Bumetanide 1 MG/4 ML VIAL IVP SCH (05:27)
[2022-12-19 09:05] LABS: Burr Cells SLIGHT = 2-5 cells HPF (0-1); CellaVision Operator ID LAB.GE; Microcytosis SLIGHT = 6-15 cells HPF (0-5); Platelet Adequacy Comment Platelets Normal; Polychromasia SLIGHT = 2-3 cells HPF (0-2)
[2022-12-19] MEDS: Aspirin Chewable 81 MG TAB PO SCH (09:23)
[2022-12-19] MEDS: Famotidine/PF 20 mg/2ml Vial SLOW IVP SCH ×2 (09:23→20:41)
[2022-12-19] MEDS: Atorvastatin Calcium 40 MG TAB PO SCH (09:24)
[2022-12-19] MEDS: Metolazone 5 MG TAB PO SCH (09:24)
[2022-12-19] MEDS: Famotidine 20 MG TAB PO SCH ×2 (09:24→20:41)
[2022-12-19] MEDS: Apixaban 5 MG TAB PO SCH ×2 (09:24→20:41)
[2022-12-19] MEDS: clonazePAM 0.5 MG TAB PO SCH ×2 (09:25→20:41)
[2022-12-19] MEDS ORDERED: Furosemide 40 MG/4 ML VIAL ONE (12:52)
[2022-12-19] MEDS: Furosemide 100 MG/10 ML VIAL SLOW IVP SCH (13:09)
[2022-12-20 04:18] LABS: #Eosinphils 0.4 thou/uL (0.0-0.7); #Monocytes 0.6 thou/uL (0.11-0.59); #Neutrophils 3.2 thou/uL (1.40-6.50); %Basophils 0.8 % (0.0-1.0); %Eosinophils 8.6 % (0.0-10.0); %Lymphocytes 12.7 % (21.0-51.0); %Monocytes 13.1 % (0.0-10.0); %Neutrophils 64.6 % (42.0-75.0); Mean Corpuscular HGB CONC 29.2 g/dL (32.0-36.0); Mean Corpuscular Hemoglobin 22.7 pg (27.0-31.0); Mean Corpuscular Volume 77.8 fl (78.0-98.0); Mean Platelet Volume 10.8 fL (7.4-10.4); Platelet Count 169 10x3/uL (130-400); Red Blood Cell (RBC) Count 3.52 mill/uL (4.70-6.10); White Blood Cell (WBC) Count 4.9 10x3/uL (4.8-10.8)
[2022-12-20 04:57] LABS: Anion Gap 14 mmol/L (10-20); BUN (Urea Nitrogen) 25 mg/dL (8.4-25.7); Calc. Creatinine Clearance 80 mL/min (70-130); Carbon Dioxide 32 mmol/L (22-29); Chloride 95 mmol/L (98-107); Estimated GFR 62; Glucose 105 mg/dL (70-105); Potassium 3.5 mmol/L (3.5-5.1); Sodium 137 mmol/L (136-145)
[2022-12-20] MEDS: Furosemide 100 MG/10 ML VIAL SLOW IVP SCH ×2 (05:57→15:54)
[2022-12-20] MEDS: DOBUTamine 500 mg/250 ml 250 ML IVPB SCH ×2 (06:50→17:50)
[2022-12-20] MEDS ORDERED: Potassium Chloride 20 MEQ TAB PO SCH (08:00)
[2022-12-20] MEDS: Aspirin Chewable 81 MG TAB PO SCH (08:47)
[2022-12-20] MEDS: clonazePAM 0.5 MG TAB PO SCH ×2 (08:47→19:16)
[2022-12-20] MEDS: Famotidine 20 MG TAB PO SCH ×2 (08:47→19:16)
[2022-12-20] MEDS: Metolazone 5 MG TAB PO SCH (08:48)
[2022-12-20] MEDS: Apixaban 5 MG TAB PO SCH ×2 (08:48→19:16)
[2022-12-20] MEDS: Atorvastatin Calcium 40 MG TAB PO SCH (08:48)
[2022-12-20] MEDS: Famotidine/PF 20 mg/2ml Vial SLOW IVP SCH ×2 (08:51→19:17)
[2022-12-20] MEDS: Ipratropium/Albuterol 3 ML NEB NEB PRN (18:17)
[2022-12-21 04:23] LABS: #Eosinphils 0.5 thou/uL (0.0-0.7); #Monocytes 0.6 thou/uL (0.11-0.59); #Neutrophils 3.4 thou/uL (1.40-6.50); %Basophils 0.4 % (0.0-1.0); %Eosinophils 9.4 % (0.0-10.0); %Lymphocytes 11.4 % (21.0-51.0); %Monocytes 11.2 % (0.0-10.0); %Neutrophils 67.4 % (42.0-75.0); Hemoglobin 7.7 g/dL (14.0-18.0); Mean Corpuscular HGB CONC 29.6 g/dL (32.0-36.0); Mean Corpuscular Hemoglobin 22.7 pg (27.0-31.0); Mean Corpuscular Volume 76.7 fl (78.0-98.0); Mean Platelet Volume 10.6 fL (7.4-10.4); Platelet Count 153 10x3/uL (130-400); RBC Distribution Width 19.8 % (11.5-14.5); Red Blood Cell (RBC) Count 3.39 mill/uL (4.70-6.10); White Blood Cell (WBC) Count 5.1 10x3/uL (4.8-10.8)
[2022-12-21 04:46] LABS: Anion Gap 16 mmol/L (10-20); BUN (Urea Nitrogen) 31 mg/dL (8.4-25.7); Calc. Creatinine Clearance 69 mL/min (70-130); Calcium 8.9 mg/dL (7.8-10.44); Carbon Dioxide 30 mmol/L (22-29); Chloride 94 mmol/L (98-107); Estimated GFR 53; Glucose 111 mg/dL (70-105); Potassium 3.4 mmol/L (3.5-5.1); Sodium 137 mmol/L (136-145)
[2022-12-21] MEDS: Furosemide 100 MG/10 ML VIAL SLOW IVP SCH ×2 (05:19→13:44)
[2022-12-21] MEDS ORDERED: Potassium Chloride 20 MEQ TAB PO SCH (08:00)
[2022-12-21] MEDS: Aspirin Chewable 81 MG TAB PO SCH (10:22)
[2022-12-21] MEDS: Famotidine 20 MG TAB PO SCH ×2 (10:23→19:54)
[2022-12-21] MEDS: Metolazone 5 MG TAB PO SCH (10:24)
[2022-12-21] MEDS: DOBUTamine 500 mg/250 ml 250 ML IVPB SCH ×2 (10:24→22:33)
[2022-12-21] MEDS: clonazePAM 0.5 MG TAB PO SCH ×2 (10:24→19:54)
[2022-12-21] MEDS: Atorvastatin Calcium 40 MG TAB PO SCH (10:24)
[2022-12-21] MEDS: Apixaban 5 MG TAB PO SCH ×2 (10:24→19:54)
[2022-12-21] MEDS: Famotidine/PF 20 mg/2ml Vial SLOW IVP SCH ×2 (11:11→19:54)
[2022-12-21 17:47] LABS: SARS-CoV-2 NAA Rapid Test Not Detected (NotDetected)
[2022-12-21] MEDS: Melatonin 3 MG TAB PO PRN (22:02)
[2022-12-22 03:49] LABS: #Eosinphils 0.5 thou/uL (0.0-0.7); #Monocytes 0.6 thou/uL (0.11-0.59); %Basophils 0.6 % (0.0-1.0); %Eosinophils 10.5 % (0.0-10.0); %Lymphocytes 13.4 % (21.0-51.0); %Neutrophils 62.1 % (42.0-75.0); Hemoglobin 7.7 g/dL (14.0-18.0); Mean Corpuscular HGB CONC 30.1 g/dL (32.0-36.0); Mean Corpuscular Hemoglobin 23.1 pg (27.0-31.0); Mean Corpuscular Volume 76.9 fl (78.0-98.0); Mean Platelet Volume 10.2 fL (7.4-10.4); Platelet Count 142 10x3/uL (130-400); RBC Distribution Width 19.9 % (11.5-14.5); Red Blood Cell (RBC) Count 3.33 mill/uL (4.70-6.10); White Blood Cell (WBC) Count 4.8 10x3/uL (4.8-10.8)
[2022-12-22 04:14] LABS: Anion Gap 11 mmol/L (10-20); BUN (Urea Nitrogen) 33 mg/dL (8.4-25.7); Calc. Creatinine Clearance 70 mL/min (70-130); Calcium 9.2 mg/dL (7.8-10.44); Carbon Dioxide 35 mmol/L (22-29); Chloride 94 mmol/L (98-107); Estimated GFR 55; Glucose 120 mg/dL (70-105); Potassium 3.2 mmol/L (3.5-5.1); Sodium 137 mmol/L (136-145)
[2022-12-22] MEDS: Furosemide 100 MG/10 ML VIAL SLOW IVP SCH ×2 (06:02→15:15)
[2022-12-22] MEDS ORDERED: Potassium Chloride 20 MEQ TAB PO SCH (08:00)
[2022-12-22] MEDS: Aspirin Chewable 81 MG TAB PO SCH (09:37)
[2022-12-22] MEDS: Atorvastatin Calcium 40 MG TAB PO SCH (09:38)
[2022-12-22] MEDS: Famotidine 20 MG TAB PO SCH (09:38)
[2022-12-22] MEDS: Apixaban 5 MG TAB PO SCH (09:39)
[2022-12-22] MEDS: clonazePAM 0.5 MG TAB PO SCH ×2 (09:39→17:01)
[2022-12-22] MEDS: Famotidine/PF 20 mg/2ml Vial SLOW IVP SCH (09:49)
[2022-12-22] MEDS: DOBUTamine 500 mg/250 ml 250 ML IVPB SCH (11:32)
[2022-12-22] MEDS ORDERED: Potassium Bicarbonate/Cit Ac 20 MEQ TAB PO SCH (14:45)
[2022-12-22 16:29] VITALS: TEMP 98
== END 2022-12-22 17:58 | disposition short-term general hospital (02) | DRG 291 ==
LOC: ERS 23:42 → ERHOLD 12-17 02:51 → IMCU/EMU 12-17 19:02 → OBSVTOIN 12-17 23:13
PROVIDERS: ADMIT Student in an Organized Health Care Education/Training Program; ATTEND Internal Medicine
PROC: 5A09357 Assistance with Respiratory Ventilation, Less than 24 Consecutive Hours, Continuous Positive Airway Pressure (ICD-10-PCS; principal; 2022-12-17)
PROC: 5A09357 Assistance with Respiratory Ventilation, Less than 24 Consecutive Hours, Continuous Positive Airway Pressure (ICD-10-PCS; 2022-12-18)
DX: I13.0 Hypertensive heart and chronic kidney disease with heart failure and stage 1 through stage 4 chronic kidney disease, or unspecified chronic kidney disease (principal); I50.23 Acute on chronic systolic (congestive) heart failure; J96.01 Acute respiratory failure with hypoxia; N18.9 Chronic kidney disease, unspecified; E87.6 Hypokalemia; G47.33 Obstructive sleep apnea (adult) (pediatric); I48.91 Unspecified atrial fibrillation; D63.1 Anemia in chronic kidney disease; I42.0 Dilated cardiomyopathy; R77.8 Other specified abnormalities of plasma proteins; Z20.822 Contact with and (suspected) exposure to COVID-19; I25.10 Atherosclerotic heart disease of native coronary artery without angina pectoris; Z95.810 Presence of automatic (implantable) cardiac defibrillator; Z95.1 Presence of aortocoronary bypass graft; Z79.82 Long term (current) use of aspirin; Z79.01 Long term (current) use of anticoagulants; Z79.899 Other long term (current) drug therapy; Z90.49 Acquired absence of other specified parts of digestive tract; Z86.73 Personal history of transient ischemic attack (TIA), and cerebral infarction without residual deficits; Z86.711 Personal history of pulmonary embolism; Z87.891 Personal history of nicotine dependence
CPT/HCPCS: 36415; 71045; 71046; 80048; 80053; 82553; 83735; 83880; 84484; 85025; 85610; 85730; 93005; 94640; 94660; 96374; J1250; J1940; J2405; J3490; J7620; S0028

== ENCOUNTER 2023-01-18 01:24 | Inpatient (IN) | payer MEDICARE ==
[2023-01-18 02:31] LABS: #Basophils 0.1 thou/uL (0.0-0.2); #Eosinphils 0.1 thou/uL (0.0-0.7); #Monocytes 0.8 thou/uL (0.11-0.59); %Basophils 0.7 % (0.0-1.0); %Eosinophils 0.7 % (0.0-10.0); %Lymphocytes 6.2 % (21.0-51.0); %Monocytes 11.3 % (0.0-10.0); %Neutrophils 80.7 % (42.0-75.0); Hematocrit 27.8 % (42.0-52.0); Hemoglobin 8.1 g/dL (14.0-18.0); Mean Corpuscular HGB CONC 29.1 g/dL (32.0-36.0); Mean Corpuscular Hemoglobin 21.2 pg (27.0-31.0); Mean Corpuscular Volume 72.8 fl (78.0-98.0); Mean Platelet Volume 11.1 fL (7.4-10.4); Platelet Count 204 10x3/uL (130-400); RBC Distribution Width 18.9 % (11.5-14.5); Red Blood Cell (RBC) Count 3.82 mill/uL (4.70-6.10); White Blood Cell (WBC) Count 7.4 10x3/uL (4.8-10.8)
[2023-01-18 02:57] LABS: Troponin I 0.041 ng/mL (< 0.028)
[2023-01-18 03:02] LABS: ALT (SGPT) 10 U/L (8-55); AST (SGOT) 18 U/L (5-34); Albumin 3.5 g/dL (3.5-5.0); Alkaline Phosphatase 108 U/L (40-110); Anion Gap 17 mmol/L (10-20); BUN (Urea Nitrogen) 23 mg/dL (8.4-25.7); Bilirubin, Total Less than 1.0 mg/dL (0.2-1.2); Calc. Creatinine Clearance 0 mL/min (70-130); Carbon Dioxide 26 mmol/L (22-29); Chloride 97 mmol/L (98-107); Estimated GFR 53; Globulin 3.1 g/dL (2.4-3.5); Glucose 121 mg/dL (70-105); Lipase 16 U/L (8-78); Magnesium 2.1 mg/dL (1.6-2.6); Potassium 2.7 mmol/L (3.5-5.1); Protein, Total 6.6 g/dL (6.0-8.3); Sodium 137 mmol/L (136-145)
[2023-01-18 03:26] LABS: Anisocytosis SLIGHT = 6-15 cells HPF (0-5); CellaVision Operator ID LAB.JMM; Hypochromia SLIGHT = 6-15 cells HPF (0-5); Macrocytosis SLIGHT = 6-15 cells HPF (0-5); Platelet Adequacy Comment Platelets Normal; Poikilocytosis SLIGHT = 6-15 cells HPF (0-5)
[2023-01-18] MEDS ORDERED: Furosemide 40 MG/4 ML VIAL ONE (03:37)
[2023-01-18] MEDS ORDERED: Potassium Chloride 40 MEQ in Sodium Chloride 0.9% 250 ML 250 ML IVPB SCH (03:45)
[2023-01-18] MEDS ORDERED: Pot Chloride/Pot Bicarb/Cit Ac 25 mEq Effervescent Tablet ONE ×2 (03:57)
[2023-01-18] MEDS ORDERED: Potassium Chloride 20 MEQ TAB ONE (03:57)
[2023-01-18] MEDS ORDERED: Ondansetron ODT 4 MG TAB PO PRN (04:39)
[2023-01-18] MEDS ORDERED: Acetaminophen 325 MG TAB PO PRN (04:39)
[2023-01-18] MEDS ORDERED: Ondansetron PF 4 MG/2 ML Vial IVP PRN (04:39)
[2023-01-18] MEDS ORDERED: Acetaminophen 650 MG Suppository PR PRN (04:39)
[2023-01-18] MEDS ORDERED: Furosemide 100 MG/10 ML VIAL SLOW IVP SCH (04:45)
[2023-01-18] MEDS ORDERED: Electrolyte Replacement Protocol 1 EACH FS SCH (04:45)
[2023-01-18] MEDS ORDERED: Ipratropium/Albuterol 3 ML NEB NEB PRN (05:47)
[2023-01-18] MEDS ORDERED: Glucagon 1 MG/ML KIT IM PRN (06:00)
[2023-01-18] MEDS ORDERED: HumaLOG 300 UNITS/3 ML VIAL SC PRN ×2 (06:00)
[2023-01-18] MEDS ORDERED: Dextrose 50% Abboject 50 ML SYRINGE SLOW IVP PRN (06:00)
[2023-01-18] MEDS ORDERED: Dextrose 5% in Water 1,000 ML IV PRN (06:00)
[2023-01-18 06:03] LABS: Lactic Acid 2.8 mmol/L (0.5-2.2)
[2023-01-18] MEDS ORDERED: Potassium Chloride 20 MEQ TAB PO SCH (06:15)
[2023-01-18] MEDS: Furosemide 100 MG/10 ML VIAL SLOW IVP SCH ×2 (06:28→15:02)
[2023-01-18] MEDS ORDERED: Potassium Bicarbonate/Cit Ac 20 MEQ TAB PO SCH (07:00)
[2023-01-18] MEDS: Ipratropium/Albuterol 3 ML NEB NEB SCH ×5 (07:16→22:51)
[2023-01-18 07:54] LABS: Bacteria/HPF None Seen HPF (None Seen); Bilirubin Negative (Negative); Blood, Urine Negative (Negative); Clarity Clear (Clear); Glucose, Urine (Dipstick) Normal (Negative); Ketone, Urine Negative (Negative); Leukocyte Negative Leu/uL (Negative); Nitrite Negative (Negative); Protein, Urine (Dipstick) Negative (Neg-Trace); RBC/HPF 0-3 HPF (0-3); Specific Gravity, Urine 1.008 (1.002-1.036); Squamous Epithelial None Seen HPF (0-3); Urobilinogen Normal mg/dL (Less than 2); WBC/HPF None Seen HPF (0-3)
[2023-01-18 08:18] LABS: Anion Gap 16 mmol/L (10-20); BUN (Urea Nitrogen) 21 mg/dL (8.4-25.7); Calc. Creatinine Clearance 91 mL/min (70-130); Calcium 9.2 mg/dL (7.8-10.44); Carbon Dioxide 29 mmol/L (22-29); Chloride 95 mmol/L (98-107); Estimated GFR 61; Glucose 120 mg/dL (70-105); Magnesium 2.2 mg/dL (1.6-2.6); Potassium 2.9 mmol/L (3.5-5.1); Sodium 137 mmol/L (136-145)
[2023-01-18] MEDS ORDERED: Potassium Bicarbonate/Cit Ac 20 MEQ TAB PER TUBE SCH (12:00)
[2023-01-18 12:23] LABS: Potassium 3.6 mmol/L (3.5-5.1)
[2023-01-18 12:46] LABS: INR-International Normal Ratio 1.8; Prothrombin Time 21.3 sec (12.0-14.7)
[2023-01-18] MEDS ORDERED: Lidocaine 1% PF 5 ML VIAL ONE (13:54)
[2023-01-18] MEDS ORDERED: Sodium Bicarbonate 2.5 MEQ/5 ML VIAL ONE (13:54)
[2023-01-18 15:25] LABS: Potassium 3.6 mmol/L (3.5-5.1)
[2023-01-18 17:13] LABS: RBC Count-Automated (BF) 25487 /cu.mm; WBC/Nucleated-Auto (BF) 542 /cu.mm
[2023-01-18 17:19] LABS: BF Color Pink; Body Fluid Source Peritoneal Fluid; Clarity Cloudy/Turbid (Clear); Tube # EDTA
[2023-01-18] MEDS: DOBUTamine 500 mg/250 ml 250 ML IVPB SCH (17:44)
[2023-01-18 19:07] LABS: BF Segmented Neutrophils 11 %; Cell Count Non Hematic 40 %; Lymphocytes 49 %
[2023-01-18] MEDS: clonazePAM 0.5 MG TAB PO SCH (20:04)
[2023-01-18] MEDS ORDERED: Melatonin 3 MG TAB PO PRN (20:20)
[2023-01-19] MEDS: Ipratropium/Albuterol 3 ML NEB NEB SCH ×6 (01:09→21:45)
[2023-01-19] MEDS: Furosemide 100 MG/10 ML VIAL SLOW IVP SCH ×2 (04:53→16:43)
[2023-01-19 05:50] LABS: #Eosinphils 0.2 thou/uL (0.0-0.7); #Monocytes 0.6 thou/uL (0.11-0.59); #Neutrophils 3.2 thou/uL (1.40-6.50); %Basophils 0.9 % (0.0-1.0); %Eosinophils 3.7 % (0.0-10.0); %Lymphocytes 12.8 % (21.0-51.0); %Monocytes 12.4 % (0.0-10.0); %Neutrophils 69.8 % (42.0-75.0); Hematocrit 28.3 % (42.0-52.0); Hemoglobin 8.1 g/dL (14.0-18.0); Mean Corpuscular HGB CONC 28.6 g/dL (32.0-36.0); Mean Corpuscular Hemoglobin 20.9 pg (27.0-31.0); Mean Corpuscular Volume 72.9 fl (78.0-98.0); Mean Platelet Volume 11.1 fL (7.4-10.4); Platelet Count 163 10x3/uL (130-400); RBC Distribution Width 18.8 % (11.5-14.5); Red Blood Cell (RBC) Count 3.88 mill/uL (4.70-6.10); White Blood Cell (WBC) Count 4.6 10x3/uL (4.8-10.8)
[2023-01-19 06:08] LABS: Manual Diff?? YES
[2023-01-19 06:21] LABS: Anion Gap 13 mmol/L (10-20); BUN (Urea Nitrogen) 24 mg/dL (8.4-25.7); Calc. Creatinine Clearance 108 mL/min (70-130); Calcium 8.9 mg/dL (7.8-10.44); Carbon Dioxide 32 mmol/L (22-29); Chloride 93 mmol/L (98-107); Estimated GFR 77; Glucose 115 mg/dL (70-105); Potassium 3.3 mmol/L (3.5-5.1); Sodium 135 mmol/L (136-145)
[2023-01-19 07:36] LABS: Band 5 % (5-11); Burr Cells SLIGHT = 2-5 cells HPF (0-1); CellaVision Operator ID LAB.GE; Eosinophils 3 % (0-10); Hypochromia MODERATE=16-30 cells HPF (0-5); Lymphocytes 4 % (21-51); Microcytosis SLIGHT = 6-15 cells HPF (0-5); Monocytes 7 % (0-10); Neutrophil 78 % (42-75); Platelet Adequacy Comment Platelets Normal; Polychromasia MODERATE = 3-4 cells HPF (0-2); Total Cell Count 100
[2023-01-19] MEDS ORDERED: Potassium Bicarbonate/Cit Ac 20 MEQ TAB PO SCH (08:00)
[2023-01-19] MEDS: clonazePAM 0.5 MG TAB PO SCH ×2 (08:05→20:35)
[2023-01-19] MEDS: DOBUTamine 500 mg/250 ml 250 ML IVPB SCH ×2 (08:12→23:11)
[2023-01-19] MEDS ORDERED: Spironolactone 25 MG TAB PO SCH (09:15)
[2023-01-19] MEDS ORDERED: Metolazone 5 MG TAB PO SCH (09:15)
[2023-01-19] MEDS: Albumin 25% 25 GM/100 ML BOT IVPB SCH ×2 (11:32→17:51)
[2023-01-19 14:17] VITALS: BMI 30.7
[2023-01-19] MEDS ORDERED: Milrinone 20 MG in Sodium Chloride 0.9% 100 ML IVPB SCH (15:00)
[2023-01-19 15:40] LABS: Fluid, pH - Pleural Fld Greater than 7.500 (7.60 - 7.66)
[2023-01-19 16:15] LABS: Fluid, Triglycerides 202 mg/dL (Not Available); Pleural Fluid, Amylase Less than 30 U/L (Not Available); Pleural Fluid, Glucose 128 mg/dL; Pleural Fluid, LDH 84 U/L (Not Available); Pleural Fluid, Protein 2.8 g/dL; RBC Count-Automated (BF) 17174 /cu.mm; WBC/Nucleated-Auto (BF) 255 /cu.mm
[2023-01-19 16:17] LABS: BF Color Pink; Body Fluid Source Pleural Fluid; Clarity Cloudy/Turbid (Clear); Tube # EDTA
[2023-01-19 16:31] LABS: BF Segmented Neutrophils 8 %; Cell Count Non Hematic 61 %; Lymphocytes 31 %
[2023-01-19] MEDS: Milrinone Lactate/D5W 20 MG in Premix Bag 1 BAG IV SCH (16:40)
[2023-01-19] MEDS: Apixaban 5 MG TAB PO SCH (20:35)
[2023-01-19] MEDS ORDERED: Non-Formulary Item 1 EACH (Apixaban [Eliquis] 5 MG Tab.Ds.Pk) PO SCH (21:00)
[2023-01-20] MEDS: Albumin 25% 25 GM/100 ML BOT IVPB SCH ×2 (01:21→06:09)
[2023-01-20] MEDS: Milrinone Lactate/D5W 20 MG in Premix Bag 1 BAG IV SCH ×2 (01:21→10:32)
[2023-01-20] MEDS: Ipratropium/Albuterol 3 ML NEB NEB SCH ×6 (01:52→22:31)
[2023-01-20 04:25] LABS: #Eosinphils 0.2 thou/uL (0.0-0.7); #Monocytes 0.4 thou/uL (0.11-0.59); #Neutrophils 3.9 thou/uL (1.40-6.50); %Basophils 0.6 % (0.0-1.0); %Eosinophils 3.3 % (0.0-10.0); %Monocytes 9.1 % (0.0-10.0); %Neutrophils 79.6 % (42.0-75.0); Hematocrit 24.8 % (42.0-52.0); Hemoglobin 7.2 g/dL (14.0-18.0); Mean Corpuscular Hemoglobin 21.1 pg (27.0-31.0); Mean Platelet Volume 11.1 fL (7.4-10.4); Platelet Count 157 10x3/uL (130-400); RBC Distribution Width 18.7 % (11.5-14.5); Red Blood Cell (RBC) Count 3.42 mill/uL (4.70-6.10); White Blood Cell (WBC) Count 4.9 10x3/uL (4.8-10.8)
[2023-01-20 04:40] LABS: Mean Corpuscular Volume 72.5 fl (78.0-98.0)
[2023-01-20 04:53] LABS: Anion Gap 14 mmol/L (10-20); BUN (Urea Nitrogen) 26 mg/dL (8.4-25.7); Calc. Creatinine Clearance 80 mL/min (70-130); Calcium 9.2 mg/dL (7.8-10.44); Carbon Dioxide 34 mmol/L (22-29); Chloride 91 mmol/L (98-107); Estimated GFR 54; Glucose 122 mg/dL (70-105); Potassium 3.1 mmol/L (3.5-5.1); Sodium 136 mmol/L (136-145)
[2023-01-20] MEDS: Furosemide 100 MG/10 ML VIAL SLOW IVP SCH ×2 (06:09→14:28)
[2023-01-20] MEDS ORDERED: Potassium Chloride 20 MEQ TAB PO SCH (07:15)
[2023-01-20] MEDS ORDERED: Electrolyte Replacement Protocol FS PRN (07:15)
[2023-01-20] MEDS ORDERED: Non-Formulary Item 1 EACH (Trazodone Hcl [Trazodone Hcl] 100 MG Tablet) PO SCH (07:30)
[2023-01-20] MEDS: traZODone HCl 50 MG TAB PO SCH (07:37)
[2023-01-20] MEDS: Atorvastatin Calcium 40 MG TAB PO SCH (07:38)
[2023-01-20] MEDS: Apixaban 5 MG TAB PO SCH ×2 (07:38→21:59)
[2023-01-20] MEDS: clonazePAM 0.5 MG TAB PO SCH ×2 (07:39→21:59)
[2023-01-20] MEDS: Aspirin Chewable 81 MG TAB PO SCH (07:39)
[2023-01-20] MEDS ORDERED: Spironolactone 25 MG TAB PO SCH (08:00)
[2023-01-20] MEDS ORDERED: Potassium Bicarbonate/Cit Ac 20 MEQ TAB PO SCH (08:00)
[2023-01-20] MEDS: DOBUTamine 500 mg/250 ml 250 ML IVPB SCH (14:36)
[2023-01-21] MEDS: Ipratropium/Albuterol 3 ML NEB NEB SCH ×2 (02:28→07:09)
[2023-01-21 05:07] LABS: #Eosinphils 0.2 thou/uL (0.0-0.7); #Monocytes 0.7 thou/uL (0.11-0.59); #Neutrophils 4.8 thou/uL (1.40-6.50); %Basophils 0.5 % (0.0-1.0); %Eosinophils 2.9 % (0.0-10.0); %Lymphocytes 5.5 % (21.0-51.0); %Monocytes 10.9 % (0.0-10.0); %Neutrophils 79.9 % (42.0-75.0); Hematocrit 24.4 % (42.0-52.0); Hemoglobin 7.2 g/dL (14.0-18.0); Mean Corpuscular HGB CONC 29.5 g/dL (32.0-36.0); Mean Corpuscular Volume 71.1 fl (78.0-98.0); Mean Platelet Volume 10.6 fL (7.4-10.4); Platelet Count 138 10x3/uL (130-400); RBC Distribution Width 18.8 % (11.5-14.5); Red Blood Cell (RBC) Count 3.43 mill/uL (4.70-6.10)
[2023-01-21 05:35] LABS: Anion Gap 15 mmol/L (10-20); BUN (Urea Nitrogen) 26 mg/dL (8.4-25.7); Calc. Creatinine Clearance 85 mL/min (70-130); Calcium 8.9 mg/dL (7.8-10.44); Carbon Dioxide 33 mmol/L (22-29); Chloride 90 mmol/L (98-107); Estimated GFR 59; Glucose 125 mg/dL (70-105); Sodium 135 mmol/L (136-145)
[2023-01-21 05:59] LABS: Anisocytosis SLIGHT = 6-15 cells HPF (0-5); Burr Cells SLIGHT = 2-5 cells HPF (0-1); CellaVision Operator ID lab.sh2; Hypochromia MODERATE=16-30 cells HPF (0-5); Macrocytosis SLIGHT = 6-15 cells HPF (0-5); Microcytosis SLIGHT = 6-15 cells HPF (0-5); Ovalocytes SLIGHT = 2-5 cells HPF (0-1); Platelet Adequacy Comment Platelets Normal; Poikilocytosis SLIGHT = 6-15 cells HPF (0-5); Polychromasia MODERATE = 3-4 cells HPF (0-2)
[2023-01-21] MEDS: Furosemide 100 MG/10 ML VIAL SLOW IVP SCH ×2 (06:37→13:18)
[2023-01-21] MEDS ORDERED: Potassium Bicarbonate/Cit Ac 20 MEQ TAB PO SCH (07:00)
[2023-01-21] MEDS: Atorvastatin Calcium 40 MG TAB PO SCH (07:56)
[2023-01-21] MEDS: clonazePAM 0.5 MG TAB PO SCH ×2 (07:56→20:09)
[2023-01-21] MEDS: Apixaban 5 MG TAB PO SCH ×2 (07:56→20:09)
[2023-01-21] MEDS: Aspirin Chewable 81 MG TAB PO SCH (07:56)
[2023-01-21] MEDS: traZODone HCl 50 MG TAB PO SCH (07:58)
[2023-01-21] MEDS ORDERED: Temazepam 15 MG CAP PO PRN (09:22)
[2023-01-22 04:41] LABS: #Eosinphils 0.1 thou/uL (0.0-0.7); #Monocytes 0.7 thou/uL (0.11-0.59); #Neutrophils 6.7 thou/uL (1.40-6.50); %Basophils 0.4 % (0.0-1.0); %Eosinophils 0.9 % (0.0-10.0); %Lymphocytes 3.2 % (21.0-51.0); %Monocytes 8.4 % (0.0-10.0); %Neutrophils 86.7 % (42.0-75.0); Hematocrit 24.2 % (42.0-52.0); Hemoglobin 7.3 g/dL (14.0-18.0); Mean Corpuscular HGB CONC 30.2 g/dL (32.0-36.0); Mean Corpuscular Hemoglobin 20.8 pg (27.0-31.0); Mean Platelet Volume 11.2 fL (7.4-10.4); Platelet Count 149 10x3/uL (130-400); RBC Distribution Width 18.7 % (11.5-14.5); Red Blood Cell (RBC) Count 3.51 mill/uL (4.70-6.10); White Blood Cell (WBC) Count 7.7 10x3/uL (4.8-10.8)
[2023-01-22 04:43] LABS: Mean Corpuscular Volume 68.9 fl (78.0-98.0)
[2023-01-22 05:04] LABS: Anion Gap 14 mmol/L (10-20); BUN (Urea Nitrogen) 26 mg/dL (8.4-25.7); Calc. Creatinine Clearance 88 mL/min (70-130); Carbon Dioxide 34 mmol/L (22-29); Chloride 83 mmol/L (98-107); Estimated GFR 61; Glucose 111 mg/dL (70-105); Potassium 3.4 mmol/L (3.5-5.1); Sodium 128 mmol/L (136-145)
[2023-01-22] MEDS: Furosemide 100 MG/10 ML VIAL SLOW IVP SCH (05:12)
[2023-01-22] MEDS: traZODone HCl 50 MG TAB PO SCH (07:30)
[2023-01-22] MEDS: clonazePAM 0.5 MG TAB PO SCH (07:48)
[2023-01-22] MEDS: Atorvastatin Calcium 40 MG TAB PO SCH (07:48)
[2023-01-22] MEDS: Aspirin Chewable 81 MG TAB PO SCH (07:48)
[2023-01-22] MEDS: Apixaban 5 MG TAB PO SCH (07:48)
[2023-01-22] MEDS: Milrinone Lactate/D5W 20 MG in Premix Bag 1 BAG IV SCH (07:48)
[2023-01-22] MEDS ORDERED: Spironolactone 25 MG TAB PO SCH (08:00)
[2023-01-22] MEDS ORDERED: Potassium Chloride 20 MEQ TAB PO SCH (08:00)
[2023-01-22] MEDS ORDERED: Empagliflozin 10 MG TAB PO SCH (09:00)
[2023-01-22 09:42] VITALS: BP 90/51; TEMP 97.9
== END 2023-01-22 11:40 | disposition home or self-care (01) | DRG 291 ==
LOC: ERS 01:24 → CCU 04:39 → 2NO 18:57 → CCU 01-19 15:16 → 2NO 01-20 16:30
PROVIDERS: ADMIT Student in an Organized Health Care Education/Training Program; ATTEND Family Medicine
PROC: 0W9G3ZZ Drainage of Peritoneal Cavity, Percutaneous Approach (ICD-10-PCS; principal; 2023-01-18)
PROC: 5A09357 Assistance with Respiratory Ventilation, Less than 24 Consecutive Hours, Continuous Positive Airway Pressure (ICD-10-PCS; 2023-01-18)
PROC: 0W993ZZ Drainage of Right Pleural Cavity, Percutaneous Approach (ICD-10-PCS; 2023-01-19)
PROC: 30233J1 Transfusion of Nonautologous Serum Albumin into Peripheral Vein, Percutaneous Approach (ICD-10-PCS; 2023-01-19)
DX: I13.0 Hypertensive heart and chronic kidney disease with heart failure and stage 1 through stage 4 chronic kidney disease, or unspecified chronic kidney disease (principal); I50.43 Acute on chronic combined systolic (congestive) and diastolic (congestive) heart failure; J96.01 Acute respiratory failure with hypoxia; E87.20 Acidosis, unspecified; R18.8 Other ascites; J90 Pleural effusion, not elsewhere classified; N17.9 Acute kidney failure, unspecified; I25.10 Atherosclerotic heart disease of native coronary artery without angina pectoris; E11.22 Type 2 diabetes mellitus with diabetic chronic kidney disease; N18.30 Chronic kidney disease, stage 3 unspecified; D63.1 Anemia in chronic kidney disease; E87.6 Hypokalemia; F41.9 Anxiety disorder, unspecified; I48.0 Paroxysmal atrial fibrillation; I25.5 Ischemic cardiomyopathy; Z79.82 Long term (current) use of aspirin; Z79.01 Long term (current) use of anticoagulants; Z79.899 Other long term (current) drug therapy; Z95.810 Presence of automatic (implantable) cardiac defibrillator; Z95.5 Presence of coronary angioplasty implant and graft; Z86.73 Personal history of transient ischemic attack (TIA), and cerebral infarction without residual deficits; Z90.49 Acquired absence of other specified parts of digestive tract; Z87.891 Personal history of nicotine dependence
CPT/HCPCS: 36415; 36416; 49083; 71045; 76705; 80048; 80053; 81001; 82150; 82945; 83605; 83615; 83690; 83735; 83880; 83986; 84157; 84443; 84478; 84484; 85025; 85060; 85610; 87070; 87102; 87116; 87205; 87206; 89051; 93005; 94640; 94660; 96374; 97139; J1250; J1650; J1940; J2260; J3480; J7050; J7620; P9047